=== PATIENT | female | born 1960 | race Caucasian/White ===

== ENCOUNTER → 2018-04-21 | Outpatient (CLI) | payer MEDICARE ==
[2018-04-21 15:56] LABS: ABG BASE EXCESS 0.3 MMOL/L (-2.5-2.5); ABG OXYGEN SATURATION 95 % (94-100); ABG PCO2 41 MMHG (35-45); ABG PO2 62 MMHG (79-93)
[2018-04-21 15:57] LABS: ALLENS TEST YES-POS; INSPIRED O2 ROOM AIR; VENTILATOR NO
== END ==
LOC: LAB 15:06
PROVIDERS: ATTEND Nurse Practitioner Family
DX: J44.9 Chronic obstructive pulmonary disease, unspecified (principal); J30.2 Other seasonal allergic rhinitis; G47.30 Sleep apnea, unspecified; R06.02 Shortness of breath; Z72.0 Tobacco use
CPT/HCPCS: 82805

== ENCOUNTER → 2018-04-30 | Outpatient (CLI) | payer MEDICARE ==
--- NOTE | 2018-04-30 19:47 | Diagnostic Imaging Report ---
INDICATION: Pain and lump in the right axilla. COMPARISON: No prior mammograms are available for comparison. TECHNIQUE: 2D and 3D bilateral diagnostic mammography was performed with computer-aided detection (CAD) system. FINDINGS: Scattered fibroglandular densities are identified bilaterally. A BB marker was placed at the area of palpable abnormality in the right axilla. No underlying abnormality is seen. Right breast is unremarkable without evidence of mass or suspicious calcifications. Slightly lobulated density is identified in the upper-outer left breast, approximately 7-8 cm from the nipple. There are some adjacent benign calcifications. No other suspicious abnormality is seen. IMPRESSION: 1. No suspicious abnormality in the right breast or right axilla is seen. There is a slightly lobulated density in the upper-outer left breast at mid depth. Sonographic interrogation of the right axilla at the area of pain as well as in the upper-outer left breast is recommended and will be performed today. ACR BI-RADS Category 0: Incomplete. (Needs additional imaging evaluation). Result letter will be mailed to the patient. Note: At least 10% of breast cancer is not imaged by mammography. Dictated by: Dictated on workstation # [id number]
--- NOTE | 2018-04-30 20:07 | Diagnostic Imaging Report ---
INDICATION: Palpable lump in the right axilla. There is also a density noted in the left breast. Study is performed for further evaluation. Correlation is made with diagnostic mammogram earlier same date. Right breast: Sonographic interrogation of the area of palpable abnormality in the right axilla was performed. There are 2 tiny hypoechoic nodules just below the skin surface in the right axilla, each measuring approximately 4-5 mm in size. These most likely represent tiny sebaceous cysts. No other abnormality in the right axilla is seen. Left breast: Sonographic interrogation of the upper outer left breast was performed. There is a slightly lobulated hypoechoic mass at the 2 o'clock location approximately 4 cm from the nipple. This measures approximately 1.4 x 0.7 x 0.8 cm. This does correlate in size and location to the mammographic density. No internal vascularity is present. This may represent a cluster of complex cysts. However, there is questionable posterior acoustic shadowing present. No other abnormalities are seen. IMPRESSION: 1. Tiny probable sebaceous cyst at the areas of palpable abnormality in the right axilla. No suspicious abnormality in the right axilla is seen. 2. Lobulated hypoechoic nodule 2 o'clock location of the left breast 4 cm from the nipple. While this has fairly benign features this does demonstrate some questionable posterior acoustic shadowing. Tissue sampling would be recommended. This would be amenable to ultrasound-guided core biopsy. ACR BI-RADS Category 4: Suspicious abnormality. Dictated by: Dictated on workstation # [id number]
== END ==
LOC: RAD 13:46
PROVIDERS: ATTEND Registered Nurse
DX: N63.21 Unspecified lump in the left breast, upper outer quadrant (principal); R22.31 Localized swelling, mass and lump, right upper limb
CPT/HCPCS: 76642; 77066

== ENCOUNTER → 2018-05-07 | Outpatient (CLI) | payer MEDICARE ==
[~2018-05-07] VITALS: Ht 162.6 cm; Wt 89.8 kg
[~2018-05-07] MED LIST: LIDOCAINE 1% INJ 20 ML 20 ML VIAL INJ ONE
--- NOTE | 2018-05-07 13:51 | Diagnostic Imaging Report ---
INDICATION: Status post left breast ultrasound-guided biopsy. 2-D, CC and ML views of the left breast were obtained post biopsy. FINDINGS: Marker clip is identified in the upper outer left breast at the region of previously noted lobulated mass. IMPRESSION: Marker clip appears to be in a satisfactory location, status post ultrasound-guided biopsy. Dictated by: Dictated on workstation # [id number]
--- NOTE | 2018-05-07 19:34 | Diagnostic Imaging Report ---
INDICATION: Left breast mass. Patient presents for ultrasound-guided biopsy. The patient was brought to the procedure room, placed on the table in the supine position. Ultrasound imaging of the left breast was performed to evaluate appropriate entry site. Skin of the left breast was prepped and draped in usual sterile fashion. Small amount of 1% lidocaine was utilized for local anesthesia. A total of 3 passes were made with 14-gauge Achieve needle into the lobulated hypoechoic mass at the 2 o'clock location of the left breast, 4 cm from the nipple. Core biopsies were obtained. Marker clip was then deployed. Hemostasis was obtained using manual compression. Patient tolerated the procedure well and was sent for post procedure mammogram in satisfactory condition. IMPRESSION: Successful ultrasound-guided core biopsy of the lobulated hypoechoic mass at the 2 o'clock location of the left breast, 4 cm from the nipple. Pathology results are currently pending. Dictated by: Dictated on workstation # [id number]
== END ==
LOC: RAD 08:59
PROVIDERS: ATTEND Registered Nurse
DX: D24.2 Benign neoplasm of left breast (principal); N60.32 Fibrosclerosis of left breast
CPT/HCPCS: 19083; 88305

== ENCOUNTER 2018-05-19 19:48 | Outpatient (CLI) | payer MEDICARE | END 2018-05-20 06:45 | disposition home or self-care (01) | LOC: SLEEP 19:48 | PROVIDERS: ATTEND Nurse Practitioner Family | DX: G47.36 Sleep related hypoventilation in conditions classified elsewhere (principal); R06.83 Snoring; J44.9 Chronic obstructive pulmonary disease, unspecified; J30.2 Other seasonal allergic rhinitis; R06.02 Shortness of breath; Z72.0 Tobacco use | CPT/HCPCS: 95810 ==

== ENCOUNTER → 2018-05-20 | Outpatient (CLI) | payer MEDICARE ==
[~2018-05-20] MED LIST changes: +IOHEXOL 350 MG/ML 100 ML (OMNIPAQUE 350) VIAL IV ONE; -LIDOCAINE 1% INJ 20 ML 20 ML VIAL INJ ONE; +NS 100 ML (IVPB) BAG IV ONE; +RECEIVED CONTRAST 20 ML VIAL IV SCH
[2018-05-20 07:43] LABS: BUN/CREATININE RATIO 10; CREATININE SERUM 0.68 MG/DL (0.60-1.30); GFR ESTIMATED > 60
--- NOTE | 2018-05-20 12:10 | Diagnostic Imaging Report ---
PROCEDURE: CT chest with contrast only. TECHNIQUE: Multiple contiguous axial images were obtained through the chest after administration of intravenous contrast. INDICATION: COPD, sleep apnea, shortness of breath, and tobacco use. COMPARISON: None. FINDINGS: Partially visualized thyroid gland does appear to be mildly enlarged with small areas of nodularity in left lobe greater than right lobe. A few small scattered bilateral axillary lymph nodes. A few mildly prominent but nonpathologic enlarged mediastinal and hilar lymph nodes are present. Periazygal lymph node calcification. The heart size is unremarkable. Thoracic aorta normal in contour. 4-5 mm predominantly solid nodule in the anterolateral aspect of right middle lobe (image 30 series 2) just below the fissure plane is present. No significant pleural effusion. Questionable 7 mm low-density nodule in the anterolateral aspect of right lobe of the liver. The visualized osseous structures demonstrate no acute findings. IMPRESSION: 1. Negative for acute abnormality of the chest. 2. Very small right middle lobe nodule favors likely benign process (Fleischner guidelines in a low-risk patient suggest follow-up CT in 12 months; in a high-risk patient, initial follow-up CT at 6-12 months). 3. Mildly enlarged thyroid gland with a few small nodules. Correlation with short-term follow-up thyroid ultrasound imaging recommended. 4. Very small lesion in the right lobe of the liver cannot be characterized on this study. This could be reflective of a benign process such as a small cyst or cavernous hemangioma. Other lesions are not excluded. Dictated by: Dictated on workstation # [id number]
== END ==
LOC: RAD 07:07
PROVIDERS: ATTEND Nurse Practitioner Family
DX: J44.9 Chronic obstructive pulmonary disease, unspecified (principal); E04.2 Nontoxic multinodular goiter; K76.9 Liver disease, unspecified; J30.2 Other seasonal allergic rhinitis; G47.30 Sleep apnea, unspecified; Z72.0 Tobacco use
CPT/HCPCS: 36415; 36600; 71260; 82565; 84520

== ENCOUNTER → 2018-11-27 | Outpatient (CLI) | payer MEDICARE ==
--- NOTE | 2018-11-27 19:29 | Diagnostic Imaging Report ---
INDICATION: Followup left breast nodule. Patient has had prior left breast biopsy demonstrating a fibroadenoma. Patient also reports nurse practitioner describing the right breast as "lumpy". Patient denies having a palpable abnormality in the right breast. COMPARISON: Correlation is made with prior mammogram from 04/30/2018. TECHNIQUE: Bilateral 2-D and 3-D diagnostic mammography was performed. The current study was also evaluated with a Computer Aided Detection (CAD) system. 3-D tomosynthesis was also performed and reviewed. FINDINGS: Scattered fibroglandular densities are identified bilaterally. Biopsy changes in the upper-outer left breast are noted. There is a marker clip in place. There are benign calcifications present. No new mass or malignant-appearing microcalcifications are seen. Axillae are unremarkable. IMPRESSION: No mammographic features suspicious for malignancy are identified. ACR BI-RADS Category 2: Benign findings. Result letter will be mailed to the patient. Note: At least 10% of breast cancer is not imaged by mammography. Dictated by: Dictated on workstation # [id number]
== END ==
LOC: RAD 12:05
PROVIDERS: ATTEND Registered Nurse
DX: N64.52 Nipple discharge (principal); N63.0 Unspecified lump in unspecified breast; Z87.898 Personal history of other specified conditions
CPT/HCPCS: 77066

== ENCOUNTER 2018-12-17 15:20 | Outpatient (CLI) | payer MEDICARE ==
[~2018-12-17] VITALS: Ht 162.5 cm; Wt 90.9 kg
[2018-12-18] MEDS ORDERED: RT-ALBUINH INH (09:44)
[2018-12-18] MEDS ORDERED: METH500T7 PO (09:44)
[2018-12-18] MEDS ORDERED: GBPN600T PO (09:44)
[2018-12-18] MEDS ORDERED: CITA20TA9 PO (09:44)
[2018-12-18] MEDS ORDERED: ZOLP5TAB PO (09:44)
[2018-12-18] MEDS ORDERED: MELO7.5T46 PO (09:44)
[2018-12-18] MEDS ORDERED: TRAZ-222 PO (09:44)
== END 2018-12-17 16:01 | disposition home or self-care (01) ==
LOC: PREOP 15:20
PROVIDERS: ATTEND Surgery
DX: Z01.818 Encounter for other preprocedural examination (principal)

== ENCOUNTER 2018-12-22 09:54 | Day surgery (SDC) | payer MEDICARE ==
[~2018-12-22] VITALS: Ht 162.6 cm; Wt 90.9 kg
[~2018-12-22 09:54] MED LIST changes: +CITA20TA9 PO; +GBPN600T PO; -IOHEXOL 350 MG/ML 100 ML (OMNIPAQUE 350) VIAL IV ONE; +MELO7.5T46 PO; +METH500T7 PO; -NS 100 ML (IVPB) BAG IV ONE; -RECEIVED CONTRAST 20 ML VIAL IV SCH; +RT-ALBUINH INH; +TRAZ-222 PO; +ZOLP5TAB PO
[2018-12-22] MEDS ORDERED: LACTATED RINGERS 1,000 ML IV ONE (10:06)
[2018-12-22] MEDS ORDERED: LACTATED RINGERS 1,000 ML IV STA (10:15)
[2018-12-22 10:35] VITALS: BP 132/90
--- NOTE | 2018-12-22 10:56 | Progress Note-Pre Operative ---
Pre-Operative Progress Note H&P Reviewed The H&P was reviewed, patient examined and no changes noted. Time Seen by Provider: 10:54 Date H&P Reviewed: Dec 22, 2018 Time H&P Reviewed: 10:53 Pre-Operative Diagnosis: screening colon FREYA DIAS DO Dec 22, 2018 10:56
[2018-12-22] MEDS ORDERED: MIDAZOLAM 2 MG/2 ML (VERSED) VIAL ONE (11:15)
[2018-12-22] MEDS ORDERED: PROPOFOL INJECTION 50 ML IV ONE (11:15)
[2018-12-22 11:45] VITALS: BP 97/54
--- NOTE | 2018-12-22 11:49 | Progress Note-Post Operative ---
Post-Operative Progess Note Surgeon (s)/Dehydrogenation Supervisor (s) Surgeon FREYA DIAS DO Dehydrogenation Supervisor: none Pre-Operative Diagnosis screening colon Post-Operative Diagnosis colon polyps internal hemorrhoids poor prep Procedure & Operative Findings Date of Procedure 12/22/18 Procedure Performed/Findings colon with snare Anesthesia Type IV sedation by CHILDCARE AIDE Estimated Blood Loss Estimated blood loss (mL): scant Specimens/Packing Specimens Removed ascending colon polyp cecal polyp FREYA DIAS DO Dec 22, 2018 11:49
[2018-12-22 11:50] VITALS: BP 106/61
--- NOTE | 2018-12-22 11:51 | Endoscopy Discharge Instruct ---
Endo Procedure/Findings Findings 1.: Polyp 2.: Internal Hemorrhoids Discharge Instructions - Activity: You might feel a little sleepy until tomorrow. This is due to the medicine you received to relax you. Until tomorrow, you should: NOT drive a car, operate machinery or power tools. NOT drink any alcoholic beverages. NOT make any important decisions or sign importortant papers. Do not return to work until tomorrow, unless otherwise instructed. Resume previous activities tomorrow. Diet: Start by taking liquids. If you tolerate liquids, advance to solid food. make an appointment for one week 1.: Colonoscopy in 1 year Notify Physician - If you experience excessive bleeding, unusual abdominal pain, fever, or chest pain, contact your doctor immediately. FREYA DIAS DO Dec 22, 2018 11:51
[2018-12-22 11:55] VITALS: BP 126/69
[2018-12-22 12:25] VITALS: BP 136/83
[2018-12-22 12:40] VITALS: BP 136/83
--- NOTE | 2018-12-22 12:54 | Anesthesia-General Post-Op ---
MAC Patient Condition Mental Status/LOC: Same as Preop Cardiovascular: Satisfactory Nausea/Vomiting: Absent Respiratory: Satisfactory Pain: Controlled Complications: Absent Post Op Complications Complications None Follow Up Care/Instructions Patient Instructions None needed. Anesthesiology Discharge Order Discharge Order Patient is doing well, no complaints, stable vital signs, no apparent adverse anesthesia problems. No complications reported per nursing. TYE HAMMOND CRNA Dec 22, 2018 12:54
--- NOTE | 2018-12-23 23:51 | OPERATIVE REPORT ---
DATE OF SERVICE: 12/22/2018 PREOPERATIVE DIAGNOSIS: Screening colonoscopy. POSTOPERATIVE DIAGNOSES: 1. Colon polyps. 2. Internal hemorrhoids. 3. Poor prep. PROCEDURE: Colonoscopy with snare polypectomy. SURGEON: Homar Caldwell DO. SLAT BASKET MAKER MACHINE: None. ANESTHESIA: IV sedation by PHYSICAL INTEGRATION PRACTITIONER. SPECIMEN: One polyp from the ascending colon and portion of cecal polyp. BLOOD LOSS: Scant. FLUIDS: Per anesthesia. POSTOPERATIVE CONDITION: Stable. INDICATION FOR PROCEDURE: The patient needed a screening colonoscopy. FINDINGS: The patient had a polyp in the ascending colon and one in the cecum. They were very flat, looked like sessile polyps. PROCEDURE NOTE: After informed consent was obtained, the patient was brought to the endoscopy suite and placed on the bed in the left lateral decubitus position. She was administered IV sedation by the PHYSICAL INTEGRATION PRACTITIONER who then monitored her vitals the entire time, heart rate, blood pressure and pulse ox and the scope was inserted, pushed all the way to [address] in, noted a very flat polyp in the ascending colon, took a picture of this and then did a snare polypectomy, able to remove the entire thing, suction this up and then continued on to the cecum, took a picture of appendiceal orifice, noted the ileocecal valve and then in the cecum, saw a very large flat sessile polyp, took a picture of this and then did a snare polypectomy, able to get maybe a quarter of the polyp, could not get the rest, it was too flat, wanted to get a piece for pathology. Then slowly withdrew the scope insufflating to look circumferentially at the acosta looking the cecum, up the ascending colon to the hepatic flexure, then down the transverse colon, the splenic flexure, into the descending colon down in the sigmoid and finally into the rectum, retroflexed in the rectal vault, saw some minimal internal hemorrhoids, took a picture of this. Also on the right side of the colon, there was a lot of retained fecal material so unable to clear the colon because it was not completely clean, picture of this was taken. Removed the scope. The patient tolerated the procedure, recovered in endoscopy suite. Job ID: [id number] DocumentID: [id number] Dictated Date: 12/23/2018 17:09:22 Still Photographer Date: 12/23/2018 23:50:13 Dictated By: HOMAR CALDWELL DO
== END 2018-12-22 12:40 | disposition home or self-care (01) ==
LOC: ENDO 09:54
PROVIDERS: ATTEND Surgery
DX: Z12.11 Encounter for screening for malignant neoplasm of colon (principal); D12.2 Benign neoplasm of ascending colon; D12.0 Benign neoplasm of cecum; K64.8 Other hemorrhoids; K21.9 Gastro-esophageal reflux disease without esophagitis; J44.9 Chronic obstructive pulmonary disease, unspecified; F17.210 Nicotine dependence, cigarettes, uncomplicated; Z99.89 Dependence on other enabling machines and devices; Z79.899 Other long term (current) drug therapy; Z82.49 Family history of ischemic heart disease and other diseases of the circulatory system; Z83.3 Family history of diabetes mellitus
CPT/HCPCS: 88305

== ENCOUNTER → 2019-01-14 | Outpatient (CLI) | payer MEDICARE ==
[~2019-01-14] VITALS: Ht 162 cm; Wt 93.0 kg
[2019-01-14 13:45] VITALS: BP 110/62
[2019-01-14 14:29] LABS: BASOPHILS % (AUTO) 0 % (0-10); EOSINOPHILS # (AUTO) 0.4 10^3/uL (0.0-0.3); EOSINOPHILS % (AUTO) 4 % (0-10); HEMATOCRIT 46 % (35-52); LYMPHOCYTES % (AUTO) 26 % (12-44); MEAN CORPUSCULAR HEMOGLOBIN 31 PG (25-34); MEAN CORPUSCULAR HGB CONC 33 G/DL (32-36); MEAN CORPUSCULAR VOLUME 94 FL (80-99); MEAN PLATELET VOLUME 10.5 FL (7.4-10.4); MONOCYTES # (AUTO) 0.7 X 10^3 (0.0-1.0); MONOCYTES % (AUTO) 6 % (0-12); NEUTROPHILS # (AUTO) 7.4 X 10^3 (1.8-7.8); NEUTROPHILS % (AUTO) 64 % (42-75); PLATELET COUNT 309 10^3/uL (130-400); RED CELL DISTRIBUTION WIDTH 13.5 % (10.0-14.5); WHITE BLOOD COUNT 11.5 10^3/uL (4.3-11.0)
== END ==
LOC: PREOP 13:15
PROVIDERS: ATTEND Surgery
DX: Z01.818 Encounter for other preprocedural examination (principal); B96.81 Helicobacter pylori [H. pylori] as the cause of diseases classified elsewhere; D12.6 Benign neoplasm of colon, unspecified
CPT/HCPCS: 36415; 85025; 86850; 86900; 86901; 87081

== ENCOUNTER 2019-01-21 08:40 | Inpatient (IN) | payer MEDICARE ==
--- NOTE | 2019-01-14 15:37 | NUR ---
PATIENT'S MED LIST WAS PUT IN BY PREOP NURSE. I CALLED ISABEL IN [place] TO VERIFY FILL DATES AND DOSAGES. I UPDATED THE ROBAXIN IT WAS PRESCRIBED. [facility] FILLED: 12-25-18 AMBIEN 5MG HS 12-25-18 GABAPENTIN 600MG TID 12-16-18 MOBIC 7.5MG DAILY 12-16-18 ROBAXIN 500MG BID 12-16-18 CELEXA 20MG DAILY ALSO REPORTED IS A VENTOLIN INHALER. ISABEL STATES SHE HAS NOT PICKED UP INHALERS DUE TO NOT HAVE INSURANCE. I LEFT IT ON THE MED REC SHE MAY HAVE RECEIVED SAMPLES.
[2019-01-21] VITALS (12 sets, daily range): BP systolic 99–180; BP diastolic 64–102
[~2019-01-21] VITALS: Ht 163 cm; Wt 90.0 kg
--- NOTE | 2019-01-21 08:44 | Progress Note-Pre Operative ---
Pre-Operative Progress Note H&P Reviewed The H&P was reviewed, patient examined and no changes noted. Time Seen by Provider: 08:42 Date H&P Reviewed: Jan 21, 2019 Time H&P Reviewed: 08:43 Pre-Operative Diagnosis: Large Tubovillous Adenoma of Cecum, Gastritis FREYA DIAS DO Jan 21, 2019 08:44 POS
[2019-01-21] MEDS ORDERED: ceFAZolin 2 GM IV Premixed 50 ML IV ONE (08:45)
[2019-01-21] MEDS ORDERED: BUP/EPI 0.5% 1:200,000 (SENSORCAINE) 30 ML VIAL ONE (08:47)
[2019-01-21] MEDS: LACTATED RINGERS 1,000 ML IV PRN ×2 (09:03→10:46)
[2019-01-21] MEDS ORDERED: GLYCOPYRROLATE 0.2 MG/ML (ROBINUL) 2 ML VIAL ONE (09:21)
[2019-01-21] MEDS ORDERED: SUCCINYLCHOLINE INJ 100 MG/5 ML SYR ONE (09:21)
[2019-01-21] MEDS ORDERED: ONDANSETRON 4 MG/2 ML (SDV) Z0FRAN ONE (09:21)
[2019-01-21] MEDS ORDERED: LIDOCAINE PF 2% 5 ML (XYLOCAINE) VIAL ONE (09:21)
[2019-01-21] MEDS ORDERED: NEOSTIGMINE 3 MG/3 ML VIAL ONE (09:21)
[2019-01-21] MEDS ORDERED: ROCURONIUM 10 MG/ML 5 ML SYRINGE IV ONE (09:21)
[2019-01-21] MEDS ORDERED: SEVOFLURANE (ULTANE) 15 ML INHAL SOLN ONE ×2 (09:21→11:34)
[2019-01-21] MEDS ORDERED: fentaNYL INJECTION 100 MCG/2 ML AMP ONE (09:21)
[2019-01-21] MEDS ORDERED: DEXAMETHASONE 10 MG/ML (DECADRON) 1 ML VIAL ONE (09:21)
[2019-01-21] MEDS ORDERED: MIDAZOLAM 2 MG/2 ML (VERSED) VIAL ONE (09:21)
[2019-01-21] MEDS ORDERED: proPOfol 200 MG/20 ML (DIPRIVAN) VIAL IV ONE (09:21)
[2019-01-21] MEDS ORDERED: BUPIVACAINE 0.5% 30 ML (SENSORCAINE) VIAL ONE (09:22)
[2019-01-21] MEDS ORDERED: VENL75CA93 PO (09:39)
[2019-01-21] MEDS ORDERED: HYDROmorphone 2 MG/ML VIAL (DILAUDID) ONE (10:17)
--- NOTE | 2019-01-21 10:53 | Progress Note-Post Operative ---
Post-Operative Progess Note Surgeon (s)/Sas Programmer (s) Surgeon FREYA DIAS DO Sas Programmer: [place] Pre-Operative Diagnosis Large Tubovillous Adenoma of Cecum, Gastritis Post-Operative Diagnosis Gastritis, Hiatal hernia Large Tubovillous adenoma of cecum Procedure & Operative Findings Date of Procedure 01/21/19 Procedure Performed/Findings EGD with bx Lap Hand asst right colon resection Anesthesia Type GET Estimated Blood Loss Estimated blood loss (mL): minimal Specimens/Packing Specimens Removed antral bx Body of stomach bx GE jxn bx Right colon with portion of TI and FREYA Ba DO Jan 21, 2019 10:53 POS
[2019-01-21] MEDS ORDERED: ONDANSETRON 4 MG/2 ML (SDV) Z0FRAN IVP PRN (11:15)
[2019-01-21] MEDS ORDERED: HYDROmorphone 2 MG/ML VIAL (DILAUDID) IV ONE (11:15)
--- NOTE | 2019-01-21 12:30 | NUR ---
SURINDERATIF Oumou admitted to room 422-1, with an admitting diagnosis of colon resection, on 01/21/19 from surgery via bed, accompanied by staff and family present in room .ATIF CADENA introduced to surroundings, call light, bed controls, phone, TV, temperature control, lights, meal times, smoking policy, visitor policy, side rail policy, bathrooms and showers. Patient Rights given to patient in the handbook. ATIF CADENA verbalizes understanding that [facility] is not responsible for the loss or damage to any personal effects or valuables that are kept in the patients posession during their hospitalization. The following Patient Care Plans and discharge were discussed with the patient and family . ATIF CADENA verbalizes understanding of Interdisciplinary Patient Education. Patient and family were informed about the Rapid Response Team and its purpose.
[2019-01-21] MEDS: ACETAMINOPHEN 500 MG TAB (TYLENOL) PO SCH ×2 (14:16→18:42)
[2019-01-21] MEDS: metroNIDAZOLE 500MG/100ML IVPB 100 ML IV SCH ×2 (14:16→18:43)
[2019-01-21] MEDS: KETOROLAC 30 MG/ML VIAL IVP SCH ×4 (14:16→23:21)
--- NOTE | 2019-01-21 14:58 | OPERATIVE REPORT ---
DATE OF SERVICE: PREOPERATIVE DIAGNOSES: 1. Gastritis, history of Helicobacter pylori. 2. Large tubulovillous adenoma of the cecum. POSTOPERATIVE DIAGNOSES: 1. Gastritis, history of Helicobacter pylori. 2. Large tubulovillous adenoma of the cecum, pending pathology. PROCEDURES: 1. EGD with biopsy. 2. Laparoscopic hand-assisted right colon resection. SURGEON: Freya Caldwell DO. SHIPPING AND RECEIVING SPECIALIST: Austin Rosenthal DO. ANESTHESIA: General endotracheal tube. SPECIMEN: Biopsy from the antrum, biopsy from the body of stomach, biopsy of the GE junction and then a second specimen was a right colon with portion of terminal ileum and appendix. BLOOD LOSS: Minimal. FLUIDS: Per anesthesia. POSTOPERATIVE CONDITION: Stable. INDICATION FOR PROCEDURE: The patient is a 59-year-old female, who had a recent colonoscopy, which showed a large polyp, unable to remove it with a colonoscopy, needed a colon resection. She also has history of H. pylori and has been having some gastritis and needed EGD. FINDINGS: The patient had some inflammation in the stomach. Biopsies done and then she had a right colon resection performed, opened the specimen on the back table found a large polyp that we had seen during colonoscopy. PROCEDURE NOTE: After informed consent was obtained, the patient was brought to the operating room, placed on the table in supine position. She was intubated and then started with the EGD, placed the scope down the mouth through the esophagus into the stomach. In the stomach, looked like there is some gastritis, maybe even a little bit of bleeding. Took picture and then pushed to the duodenum. Duodenum looked fine. Pulled back and did a biopsy of the antrum. Retroflexed the scope. She may have had a small hiatal hernia, did a biopsy of body of stomach and then pulled the scope up into the GE junction, did a biopsy GE junction. Suctioned all the air out of the stomach and then pulled the scope up the esophagus and out of the mouth and then patient was sterilely prepped and draped in normal fashion. I started with a colon resection. Small midline incision was made from just above the umbilicus to just below with #15 blade, carried down through the skin into subcutaneous tissue after first infiltrating the skin with local and then carried down through the subcutaneous tissue with blunt dissection with Bovie electrocautery down to fascia. Fascia incised with Bovie electrocautery, then bluntly entered the abdomen, swept a finger around then opened in a superior and inferior direction with a hand in protecting the bowel placed a wound protector and then placed a Gelport, created pneumoperitoneum and then placed 2 more ports with local lidocaine, 15 blade for stab incision and then VersaStep system, all done under direct vision, one above the Gelport and one below, could visualize the cecum started coming across the pericolic gutter with the LigaSure, clamping, coagulating and transecting in this fashion, freeing this up, so that we could rotate the colon to the middle coming up all the way across to the hepatic flexure and then up some adhesions of the liver and gallbladder. This was carefully taken down with the LigaSure. Once we had everything freed up with the LigaSure, then elected to deliver this through the abdominal wall, went through the mesentery with Bovie electrocautery and then placed a CORAZON-75 clamped and fired, thereby transecting and went up on the colon about a little more than care home up of the right colon got under the mesentery with the Bovie electrocautery and blunt dissection and then placed another CORAZON-75 on clamped and fired, thereby transecting and then took this portion of terminal ileum, appendix and colon took this off the LigaSure, clamping, coagulating and transecting coming through the mesentery and then attached the antimesenteric border of the small intestine through the tinea of the colon made holes with a Bovie electrocautery, placed a CORAZON on either side, clamped and fired through the crotch stitch of 3-0 Vicryl and then closed this enterocolotomy with a TA-60. Closed nicely. There was no bleeding dropped this back into the abdomen and then closed the midline incision, took the wound protector out and closed the midline incision with #1 double stranded PDS suture running from superior portion to inferior portion tying to itself. Created pneumoperitoneum again to look midline incision looked great. No other obvious pathology, no bleeding and at this time, then removed the 2 more 5 mm ports, first irrigated all incisions with normal saline and closed the 5 mm ports with a single interrupted 4-0 undyed Monocryl subcuticular stitch, closed with a midline incision with nafisa. Area was cleaned and dried. Dermabond used and the 5 mm and then an island dressing placed in the midline incision. The patient tolerated the procedure. Sponge, instrument and needle count correct at the end of the case. Dr. Rosenthal assisted in this case helping to make incisions, close incisions, identify anatomy and hold anatomy out of the way. Job ID: [id number] DocumentID: [id number] Dictated Date: 01/21/2019 10:50:26 E Commerce Project Manager Date: 01/21/2019 14:56:35 Dictated By: FREYA CALDWELL DO
[2019-01-21] MEDS: ceFAZolin 2 GM IV Premixed 50 ML IV SCH ×2 (16:02→23:22)
[2019-01-21] MEDS ORDERED: HYDROcodone/APAP 5 MG/325 MG (LORTAB) TAB ONE (22:19)
[2019-01-22] VITALS: BP 109/63
[2019-01-22] MEDS: ACETAMINOPHEN 500 MG TAB (TYLENOL) PO SCH ×4 (03:00→18:17)
[2019-01-22 04:00] VITALS: BP 105/63
[2019-01-22] MEDS: KETOROLAC 30 MG/ML VIAL IVP SCH ×4 (05:10→23:00)
--- NOTE | 2019-01-22 06:55 | Anesthesia-General Post-Op ---
General Patient Condition Mental Status/LOC: Same as Preop Cardiovascular: Satisfactory Nausea/Vomiting: Absent Respiratory: Satisfactory Pain: Controlled Complications: Absent Post Op Complications Complications None Follow Up Care/Instructions Patient Instructions None needed. Anesthesia/Patient Condition Patient Condition Patient is doing well, no complaints, stable vital signs, no apparent adverse anesthesia problems. No complications reported per nursing. LYNDON HAIRSTON CRNA Jan 22, 2019 06:55 POS
--- NOTE | 2019-01-22 07:34 | Progress Note - Surgery ---
CAIN COLEMAN MED STUDENT 01/22/19 0734: Subjective Date Seen by a Provider: Jan 22, 2019 Time Seen by a Provider: 07:10 Subjective/Events-last exam Ms. Oreilly complains of blood in her stool that she describes as bright red, as well as several pains in her abdomen. She has had several bowel movements since her surgery, and reports that they have all been bloody. She complains of an 8/10 pain in her RLQ and hypogastric area near her iqbal button that she describes as an 8/10 sharp cramping. This pain began yesterday evening, is exacerbated by coughing, palpation, and exertion, and has been improved by pain medication and ice packs. The pain does not radiate. She also complains of pain in her lower hypogastric area she describes as 4/10 pressure, and like she feels like she has to urinate frequently. She has RUQ pain that she has had before, which she describes as a 6/10 sharp, burning pain, for which she had an EGD yesterday. Review of Systems General: No Chills; Fatigue (weakness) HEENT: Sinus Congestion, Post Nasal Drip, Sore Throat (usually has moisture with cannula, reports no moisture in cannula last night dried her out) Pulmonary: No Dyspnea; Cough Cardiovascular: Edema; No: Chest Pain, Palpitations, Lt Headedness Gastrointestinal: Abdominal Pain, Hematochezia; No: Nausea Genitourinary: No Dysuria; Frequency; No Hematuria Neurological: Weakness, Numbness (neuropathy) Objective Exam Vital Signs Date Time Temp Pulse Resp B/P (MAP) Pulse Ox O2 Delivery O2 Flow Rate FiO2 01/22/19 04:00 36.5 72 20 105/63 (77) 94 Nasal Cannula 2.00 01/22/19 00:00 36.9 71 18 109/63 (78) 94 Nasal Cannula 2.00 01/21/19 19:57 36.7 80 20 105/64 (78) 95 Nasal Cannula 2.00 01/21/19 16:17 Nasal Cannula 2.00 01/21/19 16:00 36.9 81 16 99/64 (76) 95 Nasal Cannula 3.00 01/21/19 14:58 36.5 82 18 110/71 (84) 95 Nasal Cannula 3.00 01/21/19 12:30 Nasal Cannula 3 01/21/19 12:20 36.4 16 115/72 (86) 94 Nasal Cannula 3 01/21/19 12:20 Nasal Cannula 01/21/19 12:10 16 116/74 (88) 95 Nasal Cannula 3 01/21/19 12:10 OxyMask 3 01/21/19 12:00 16 120/70 (87) 95 OxyMask 3 01/21/19 11:55 OxyMask 3 01/21/19 11:51 16 144/71 (95) 99 OxyMask 5 01/21/19 11:40 16 167/102 (123) 99 OxyMask 10 01/21/19 11:40 10 01/21/19 11:30 16 180/88 (118) 100 OxyMask 10 01/21/19 11:25 OxyMask 10 01/21/19 11:20 16 163/85 (111) 99 OxyMask 10 01/21/19 11:13 OxyMask 10 01/21/19 11:13 36.6 16 167/85 (112) 98 OxyMask 10 01/21/19 08:40 36.1 88 16 113/76 95 Room Air I & O 01/22/19 07:00 Intake Total 2970 ml Output Total 3075 ml Balance -105 ml Capillary Refill : General Appearance: Anxious, Mild Distress, Obese Respiratory: No Normal Breath Sounds (intermitten low pitch vibrating sound on upper posts, perhaps due to congestion); No Accessory Muscle Use, No Respiratory Distress Cardiovascular: Regular Rate, Rhythm, No Murmur, Normal Peripheral Pulses Peripheral Pulses: 2+ Dorsalis Pedis (R), 2+ Left Dors-Pedis (L), 2+ Radial Pul ses (R), 2+ Radial Pulses (L) Gastrointestinal: normal bowel sounds, soft, tenderness Extremity: Normal Capillary Refill, Non Tender, No Calf Tenderness, No Pedal Edema Neurologic/Psychiatric: Alert, Oriented x3, Normal Mood/Affect Skin: Normal Color, Warm/Dry Assessment/Plan Assessment/Plan Assessment/Plan Hematochezia Abdominal pain s/p EGD and colon resection Consider endoscopy to locate source of bleeding. Clinical Quality Measures DVT/VTE Risk/Contraindication: RFS Level Per Nursing on Admit: 4+=Very High HOMAR DIAS DO 01/22/19 0839: Subjective Time Seen by a Provider: 08:21 Subjective/Events-last exam Pt seen and examined, states she thinks the blood with BM is slowing down. Assessment/Plan Assessment/Plan Assessment/Plan S/P Lap Right Colon resection Plan continue diet as tolerated, pain control and pt encouraged to ambulate (in halls) and use IS. Pt reassured that a little bit of blood in BM is normal, plus it is lightening up. No need for scope at this time, only if bleeding doesn't stop in a few days. Supervisory-Addendum Brief Verification & Attestation Participated in pt care: history, MDM, physical Personally performed: exam, history, MDM Care discussed with: Medical Student Procedures: n/a Verification and Attestation of Medical Student E/M Service A medical student performed and documented this service in my presence. I reviewed and verified all information documented by the medical student and made modifications to such information, when appropriate. I personally performed the physical exam and medical decision making. Homar Dias, Jan 22, 2019,08:39 CAIN COLEMAN MED STUDENT Jan 22, 2019 07:34 HOMAR MEEHAN DO Jan 22, 2019 08:39 POS
[2019-01-22 08:00] VITALS: BP 117/63
[2019-01-22] MEDS: HYDROcodone/APAP 5 MG/325 MG (LORTAB) TAB PO PRN ×2 (08:43)
[2019-01-22 10:42] LABS: HEMOGLOBIN 11.7 G/DL (11.5-16.0); MEAN PLATELET VOLUME 10.1 FL (7.4-10.4); RED CELL DISTRIBUTION WIDTH 12.8 % (10.0-14.5); WHITE BLOOD COUNT 25.4 10^3/uL (4.3-11.0)
[2019-01-22] MEDS ORDERED: ENOXAPARIN 40 MG/0.4 ML (LOVENOX) SYR SC SCH (11:00)
--- NOTE | 2019-01-22 11:50 | NUR ---
Pharmacy notified of dosing schedule for Toradol, Pharm okayed non scheduled administration.
[2019-01-22 12:00] VITALS: BP 122/84
--- NOTE | 2019-01-22 12:16 | NUR ---
Dr. Caldwell notified of WBC count and pt's uncontrolled pain
[2019-01-22] MEDS: morphine INJ 4 MG/ML 1 ML (VIAL/SYRINGE) IVP PRN ×3 (15:27→21:12)
[2019-01-22 16:05] VITALS: BP 100/56
--- NOTE | 2019-01-22 18:18 | NUR ---
1900 dose of tylenol held because dose would exceed daily allowance.
[2019-01-22 19:17] VITALS: BP 109/57
[2019-01-23 00:05] VITALS: BP 103/65
[2019-01-23] MEDS: morphine INJ 4 MG/ML 1 ML (VIAL/SYRINGE) IVP PRN ×3 (00:30→08:59)
[2019-01-23 04:00] VITALS: BP 101/60
[2019-01-23] MEDS: KETOROLAC 30 MG/ML VIAL IVP SCH (04:11)
--- NOTE | 2019-01-23 07:12 | NUR ---
pt continues to have bloody stools, and pain with BMs, Dr. Caldwell notified, ordered to have H/H done.
[2019-01-23 08:00] VITALS: BP 106/58
--- NOTE | 2019-01-23 08:34 | Progress Note - Surgery ---
CAIN COLEMAN MED STUDENT 01/23/19 0834: Subjective Date Seen by a Provider: Jan 23, 2019 Time Seen by a Provider: 07:45 Subjective/Events-last exam Since she was last seen, Ms. Oreilly reports feeling the same as yesterday. She continues to have the 8/10 sharp pain in her lower abdominal quadrants, pa rticularly her RLQ, that is exacerbated by coughing and movement, as well as the pain in her RUQ and hypogastric area. She reports that she no longer has pain on urination today. Continues to have blood in her stool that she describes as bright red, and has had increased frequency of bowel movements. Review of Systems General: No Chills; Fatigue HEENT: Sinus Congestion, Sore Throat Pulmonary: No Dyspnea; Cough Cardiovascular: No: Chest Pain, Lt Headedness Gastrointestinal: Abdominal Pain, Hematochezia Genitourinary: No Dysuria; Hematuria Neurological: Weakness; No: Numbness (neuropathy) Objective Exam Vital Signs Date Time Temp Pulse Resp B/P (MAP) Pulse Ox O2 Delivery O2 Flow Rate FiO2 01/23/19 04:00 37.4 86 22 101/60 (74) 96 01/23/19 00:05 36.9 85 18 103/65 (78) 94 01/22/19 21:10 Room Air 01/22/19 19:17 36.6 74 18 109/57 (74) 97 01/22/19 16:05 36.4 80 19 100/56 (71) 95 01/22/19 12:00 36.0 98 20 122/84 (97) 93 Nasal Cannula 2.00 01/22/19 09:00 Nasal Cannula 1.00 I & O 01/23/19 07:00 Intake Total 2549 ml Output Total 1400 ml Balance 1149 ml Capillary Refill : General Appearance: Anxious, Moderate Distress, Obese Neck: Non Tender, Supple Respiratory: Normal Breath Sounds, No Accessory Muscle Use, No Respiratory Distress Cardiovascular: Regular Rate, Rhythm, No Murmur, Normal Peripheral Pulses Peripheral Pulses: 2+ Dorsalis Pedis (R), 2+ Left Dors-Pedis (L), 2+ Radial Pulses (R), 2+ Radial Pulses (L) Gastrointestinal: normal bowel sounds, soft, tenderness (RLQ) Extremity: Non Tender, No Calf Tenderness, No Pedal Edema Neurologic/Psychiatric: Alert, Oriented x3, Normal Mood/Affect Skin: Normal Color, Warm/Dry Results Lab Laboratory Tests 01/22/19 10:35: White Blood Count 25.4H, Red Blood Count 3.75L, Hemoglobin 11.7, Hematocrit 35, Mean Corpuscular Volume 92, Mean Corpuscular Hemoglobin 31, Mean Corpuscular Hemoglobin Concent 34, Red Cell Distribution Width 12.8, Platelet Count 259, Mean Platelet Volume 10.1, Creatinine 0.62 Assessment/Plan Assessment/Plan Assessment/Plan S/P lap right colon resection Awaiting H&H, monitoring bleeding. Continue diet as tolerated, manage pain, encourage ambulation in halls. Clinical Quality Measures DVT/VTE Risk/Contraindication: RFS Level Per Nursing on Admit: 4+=Very High HOMAR DIAS DO 01/23/19 1027: Subjective Time Seen by a Provider: 09:58 Subjective/Events-last exam Pt seen and examined, her main complaint is of cramping. States she is still passing blood clots, is ambulating and using IS (but not much). Assessment/Plan Assessment/Plan Assessment/Plan S/P Right colon resection Pt told she must ambulate and use IS, also should be using her inhaler. Will increase diet to soft, D/C all blood thinners (toradol, lovenox), start Dicyclomine for intestinal cramps. Supervisory-Addendum Brief Verification & Attestation Participated in pt care: history, MDM, physical Personally performed: exam, history, MDM Care discussed with: Medical Student Procedures: n/a Verification and Attestation of Medical Student E/M Service A medical student performed and documented this service in my presence. I reviewed and verified all information documented by the medical student and made modifications to such information, when appropriate. I personally performed the physical exam and medical decision making. Homar Dias, Jan 23, 2019,10:27 CAIN COLEMAN MED STUDENT Jan 23, 2019 08:34 HOMAR MEEHAN DO Jan 23, 2019 10:27 POS
[2019-01-23 08:44] LABS: HEMOGLOBIN 9.1 G/DL (11.5-16.0)
--- NOTE | 2019-01-23 09:43 | NUR ---
Dr Caldwell notified of pt's muscle spasms, bloody stool, and uncontrolled pain.
[2019-01-23] MEDS ORDERED: HYDR-3820 PO (10:30)
--- NOTE | 2019-01-23 10:30 | Discharge Inst-Surgical ---
Discharge Inst-Surgical Depart Medication/Instructions New, Converted or Re-Newed RX: RX on Chart Patient Instructions Follow up Appt: Make appointment for 1 week. [phone] Instructions: No lifting greater than 20 pounds. No strenuous activity. May shower in 24 hours, no tub bath or soaking. Use incentive spirometer at home as directed. No Smoking Skin/Wound Care: May remove bandages in am. You need to leave the Dermabond on incision it will fall off on it's own. Symptoms to Report: Appetite Changes, Extremity Discoloration, Numbness/Tingling, Swelling Increased, Bleeding Excessive, Eyesight Changes, Pain Increased, Urine Color Change, Constipation(Persistent), Fever over 101 degree F, Pain/Pressure in chest, Urinating Difficulty, Cough Up/Vomit Blood, Heart Beat Irreg/Pounding, Pain/Pressure in jaw, Cramps in feet or legs, Lightheadedness, Pain/Pressure in shoulder, Diarrhea(Persistent), Memory Changes Suddenly, Questions/Concerns, Weight gain consecutive days, Dizziness/Fainting, Nausea/Vomiting, Shortness of Breath, Weight gain over 2 pounds If questions or concerns contact your physician Or seek help at emergency department. Activity Activity Instructions: Avoid Stress to Incision Driving Instructions: No Driving/Refer to Diet Discharge Diet: No Restrictions Diet After 24 Hours: Clear Liquid if Nauseous If Any Problems/Questions/Issu: Contact Your Physician, Go to Emergency Room Skin/Wound Care Infection Signs and Symptoms: Increased Redness, Foul Odor of Wound, Increased Drainage, Skin Itchy or Has a Rash, Increased Swelling, Temperature Above 101 F Bathing Instructions: Shower Stitches/[place]/Dermabond Dis: Care of FREYA Cain DO Jan 23, 2019 10:30 POS
[2019-01-23] MEDS: DICYCLOMINE 10 MG (BENTYL) CAP PO SCH ×3 (11:41→20:23)
[2019-01-23] MEDS: HYDROcodone/APAP 10 MG/325 MG (LORTAB) TAB PO PRN ×3 (11:42→20:21)
[2019-01-23 12:00] VITALS: BP 109/65
--- NOTE | 2019-01-23 15:05 | NUR ---
Report called to Aminta weber Addendum: 01/23/19 at 1830 by BESSIE PIERRE RN CHARTED ON WRONG PT
[2019-01-23 16:08] VITALS: BP 96/58
[2019-01-23 19:38] VITALS: BP 100/53
[2019-01-24 00:09] VITALS: BP 106/55
[2019-01-24] MEDS: HYDROcodone/APAP 10 MG/325 MG (LORTAB) TAB PO PRN ×6 (01:40→22:30)
[2019-01-24 04:25] VITALS: BP 95/50
[2019-01-24] MEDS: DICYCLOMINE 10 MG (BENTYL) CAP PO SCH ×4 (06:13→19:58)
[2019-01-24 08:00] VITALS: BP 106/61
--- NOTE | 2019-01-24 10:51 | Progress Note - Surgery ---
Subjective Date Seen by a Provider: Jan 24, 2019 Time Seen by a Provider: 10:48 Subjective/Events-last exam Pain doing okay. Using IS some. No flatus or bm. Tolerating diet. Denies n/v fever sweats chills shortness of breath or chest pain. Objective Exam Vital Signs Date Time Temp Pulse Resp B/P (MAP) Pulse Ox O2 Delivery O2 Flow Rate FiO2 01/24/19 09:09 95 Room Air 01/24/19 08:00 36.6 90 16 106/61 (76) 95 Room Air 01/24/19 04:25 37.4 100 18 95/50 (65) 92 Room Air 01/24/19 00:09 36.6 91 18 106/55 (72) 92 Room Air 01/23/19 20:05 Room Air 01/23/19 19:38 36.9 90 18 100/53 (69) 93 Room Air 01/23/19 16:08 36.7 87 20 96/58 (71) 95 Room Air 01/23/19 12:00 37.2 88 18 109/65 (80) 97 Nasal Cannula 2.00 I & O0 01/24/19 07:00 Intake Total 1090 ml Output Total 1375 ml Balance -285 ml Capillary Refill : Less Than 3 Seconds General Appearance: No Apparent Distress, Obese HEENT: PERRL/EOMI Neck: Non Tender, Supple Respiratory: Chest Non Tender, No Accessory Muscle Use, No Respiratory Distress Cardiovascular: Regular Rate, Rhythm, Normal Peripheral Pulses Peripheral Pulses: 2+ Dorsalis Pedis (R), 2+ Left Dors-Pedis (L), 2+ Radial Pulses (R), 2+ Radial Pulses (L) Gastrointestinal: normal bowel sounds, soft, tenderness (minimal incisional c/d/i) Extremity: Non Tender, No Calf Tenderness, No Pedal Edema Neurologic/Psychiatric: Alert, Oriented x3, Normal Mood/Affect Skin: Normal Color, Warm/Dry Lymphatic: No Adenopathy Assessment/Plan Assessment/Plan Assessment/Plan S/P Right colon resection Pt told she must ambulate and use IS, PO pain medications. See how she's doing. repeat labs tomorrow Clinical Quality Measures DVT/VTE Risk/Contraindication: RFS Level Per Nursing on Admit: 4+=Very High REBECCA DAVENPORT DO Jan 24, 2019 10:51 POS
[2019-01-24 12:00] VITALS: BP 104/64
[2019-01-24 16:34] VITALS: BP 100/64
[2019-01-24 19:53] VITALS: BP 100/58
[2019-01-25 00:01] VITALS: BP 104/65
[2019-01-25 04:15] VITALS: BP 106/82
[2019-01-25] MEDS: HYDROcodone/APAP 10 MG/325 MG (LORTAB) TAB PO PRN ×4 (04:48→18:32)
[2019-01-25] MEDS: DICYCLOMINE 10 MG (BENTYL) CAP PO SCH ×4 (04:48→20:47)
[2019-01-25 06:10] LABS: HEMOGLOBIN 8.9 G/DL (11.5-16.0); MEAN PLATELET VOLUME 10.9 FL (7.4-10.4); RED CELL DISTRIBUTION WIDTH 12.6 % (10.0-14.5); WHITE BLOOD COUNT 23.2 10^3/uL (4.3-11.0)
[2019-01-25 06:30] LABS: BUN/CREATININE RATIO 9; CALCIUM 9.3 MG/DL (8.5-10.1); CARBON DIOXIDE 26 MMOL/L (21-32); CHLORIDE 92 MMOL/L (98-107); CREATININE SERUM 0.58 MG/DL (0.60-1.30); GFR ESTIMATED > 60; GLUCOSE 117 MG/DL (70-105); SODIUM 132 MMOL/L (135-145)
[2019-01-25 08:00] VITALS: BP 116/72
--- NOTE | 2019-01-25 09:11 | Progress Note - Surgery ---
MADONNA SUTTON,MED STUDENT 01/25/19 0911: Subjective Date Seen by a Provider: Jan 25, 2019 Time Seen by a Provider: 08:15 Subjective/Events-last exam Patient seen and examined. She is still having lower abdominal pain that she describes as crampy, and it comes and goes. At the worst the pain is an 8/10, but notes the hydrocodone helps some. She is starting to pass gas, but has not had a BM. She denies trouble with urination. She reports she began having a productive cough yesterday, and has been coughing up green mucous. She is afebrile, denies SOB, chest pain, n/v/d, but notes she has felt hot and has been sweating some. States she has been using IS. Objective Exam Vital Signs Date Time Temp Pulse Resp B/P (MAP) Pulse Ox O2 Delivery O2 Flow Rate FiO2 01/25/19 08:00 36.0 88 18 116/72 (87) 97 Nasal Cannula 2.00 01/25/19 04:15 36.4 92 18 106/82 (90) 95 Nasal Cannula 2.00 01/25/19 00:01 36.0 85 18 104/65 (78) 97 Nasal Cannula 2.00 01/24/19 21:00 Room Air 01/24/19 19:53 37.6 97 28 100/58 (72) 97 Nasal Cannula 2.00 01/24/19 16:34 36.0 99 20 100/64 (76) 93 Room Air 01/24/19 12:00 36.5 79 16 104/64 (77) 97 Room Air 01/24/19 09:09 95 Room Air I & O 01/25/19 07:00 Intake Total 1540 ml Output Total 500 ml Balance 1040 ml Capillary Refill : Less Than 3 Seconds General Appearance: No Apparent Distress, Obese HEENT: PERRL/EOMI; No Scleral Icterus (L), No Scleral Icterus (R) Neck: Non Tender, Supple Respiratory: Chest Non Tender, No Accessory Muscle Use, No Respiratory Distress; No Crackles, No Rhonci, No Wheezing Cardiovascular: Regular Rate, Rhythm, Normal Peripheral Pulses Peripheral Pulses: 2+ Dorsalis Pedis (R), 2+ Left Dors-Pedis (L), 2+ Radial Pulses (R), 2+ Radial Pulses (L) Gastrointestinal: normal bowel sounds, soft, tenderness (minimal incisional c/d/i) Extremity: Non Tender, No Calf Tenderness, No Pedal Edema Neurologic/Psychiatric: Alert, Oriented x3, Normal Mood/Affect Skin: Normal Color, Warm/Dry Lymphatic: No Adenopathy Results Lab Laboratory Tests 01/25/19 05:57: White Blood Count 23.2H, Red Blood Count 2.91L, Hemoglobin 8.9L, Hematocrit 27L, Mean Corpuscular Volume 93, Mean Corpuscular Hemoglobin 31, Mean Corpuscular Hemoglobin Concent 33, Red Cell Distribution Width 12.6, Platelet Count 348, Mean Platelet Volume 10.9H, Sodium Level 132L, Potassium Level 4.0, Chloride Lev el 92L, Carbon Dioxide Level 26, Anion Gap 14, Blood Urea Nitrogen 5L, Creatinine 0.58L, Estimat Glomerular Filtration Rate > 60, BUN/Creatinine Ratio 9, Glucose Level 117H, Calcium Level 9.3, Magnesium Level 2.0 Assessment/Plan Assessment/Plan Assessment/Plan S/P Right colon resection Patient states she is using IS as instructed WBC at 23.2 today, down from 25.4 on 01/23 Continue to monitor labs Continue PO pain medication prn Clinical Quality Measures DVT/VTE Risk/Contraindication: RFS Level Per Nursing on Admit: 4+=Very High REBECCA ROSENTHAL DO 01/25/19 1313: Subjective Subjective/Events-last exam productive cough, green color to it. passing flatus, denies bm. Wanting to go home. wbc 23k usin IS some. tolerating diet. denies n/v chills shortness of breath or chest pain. Objective Exam General Appearance: No Apparent Distress HEENT: PERRL/EOMI Neck: Supple Respiratory: Chest Non Tender, No Accessory Muscle Use, No Respiratory Distress Cardiovascular: Regular Rate, Rhythm Gastrointestinal: soft, tenderness (minimal incisional c/d/i) Neurologic/Psychiatric: Alert, Oriented x3 Skin: Normal Color, Warm/Dry Lymphatic: No Adenopathy Assessment/Plan Assessment/Plan Assessment/Plan s/p right colon resection productive cough leukocytosis get chest x ray start on Zosyn repeat labs in am sputum culture encouraged IS Supervisory-Addendum Brief Verification & Attestation Participated in pt care: history, MDM, physical Personally performed: exam, history, MDM, supervision of care Care discussed with: Medical Student Procedures: n/a Results interpretation: Verified all documentation Verification and Attestation of Medical Student E/M Service A medical student performed and documented this service in my presence. I reviewed and verified all information documented by the medical student and made modifications to such information, when appropriate. I personally performed the physical exam and medical decision making. Rebecca Rosenthal, Jan 25, 2019,13:16 MADONNA SUTTON,MED STUDENT Jan 25, 2019 09:11 REBECCA PINEDA DO Jan 25, 2019 13:13 POS
[2019-01-25 11:58] VITALS: BP 114/71
[2019-01-25] MEDS ORDERED: PIPERACILLIN/TAZO 4.5 GM/NS 100 ML IV NR ×2 (13:17)
--- NOTE | 2019-01-25 15:04 | NUR ---
CALLED DR DAVENPORT TO ADVISE PT IN MUCH DISCOMFORT FROM WHAT SHE DESCRIBES GAS. ALSO PT IS SAYING SHE FEELS LIKE SHE IS HAVING SPASMS IN HER ABDOMEN.
[2019-01-25 15:38] VITALS: BP 112/62
--- NOTE | 2019-01-25 15:57 | NUR ---
SPOKE WITH DR. DAVENPORT, PT'S NEW IV NO GOOD. HE SAID TO SWITCH TO ORAL. SPOKE WITH KITTY IN PHARMACY SHE WILL UNDO THE SCANNED MAGNESIUM AND POTASSIUM THAT WAS NOT GIVEN AND SWITCH PT'S IV MEDS TO ORAL.
--- NOTE | 2019-01-25 16:04 | Diagnostic Imaging Report ---
Procedure: Chest 1 view, AP/PA only. Indication: Chest pain. Comparison: None available. Findings: No focal airspace disease in the visualized lungs. Please note that the posterior lower lobes are poorly evaluated by portable radiography. No pleural effusion or pneumothorax. Stable convex lateral smooth contour abnormality in the right suprahilar region due to a few borderline enlarged lymph nodes seen on prior CT chest from 05/20/2018. No change within the mediastinum or cardiac silhouette. Impression: No acute cardiopulmonary process by portable radiography. Dictated by: Dictated on workstation # [id number]
[2019-01-25 19:35] VITALS: BP 127/59
[2019-01-25] MEDS: PIPERACILLIN/TAZOBACTAM (BULK) 4.5 GM in NS (IVPB) 100 ML IV SCH (19:39)
[2019-01-26] VITALS (7 sets, daily range): BP systolic 114–162; BP diastolic 62–79
[2019-01-26] MEDS: HYDROcodone/APAP 10 MG/325 MG (LORTAB) TAB PO PRN ×2 (00:48→16:57)
--- NOTE | 2019-01-26 02:27 | NUR ---
Dr. Rosenthal notified of pt having large amount dark green emesis (approx. 200 mls) and continuing to have bright red (bloody) stools. New orders rec for Zofran 4 mg iv q 4 hrs prn nausea, cbc & cmp this am, and change diet to clear liquids. Will continue to monitor.
[2019-01-26] MEDS ORDERED: ONDANSETRON 4 MG/2 ML (SDV) Z0FRAN ONE (02:44)
[2019-01-26] MEDS: ONDANSETRON 4 MG/2 ML (SDV) Z0FRAN IVP PRN ×4 (02:47→23:18)
[2019-01-26] MEDS: PIPERACILLIN/TAZOBACTAM (BULK) 4.5 GM in NS (IVPB) 100 ML IV SCH ×3 (04:15→20:25)
[2019-01-26 05:45] LABS: HEMOGLOBIN 8.8 G/DL (11.5-16.0); MEAN PLATELET VOLUME 10.4 FL (7.4-10.4); RED CELL DISTRIBUTION WIDTH 12.6 % (10.0-14.5); WHITE BLOOD COUNT 22.6 10^3/uL (4.3-11.0)
[2019-01-26 06:01] LABS: ALANINE AMINOTRANSFERASE 9 U/L (0-55); ALBUMIN 3.3 GM/DL (3.2-4.5); ALKALINE PHOSPHATASE 68 U/L (40-136); BILIRUBIN,TOTAL 0.3 MG/DL (0.1-1.0); BUN/CREATININE RATIO 10; CALCIUM 9.2 MG/DL (8.5-10.1); CARBON DIOXIDE 27 MMOL/L (21-32); CHLORIDE 90 MMOL/L (98-107); CREATININE SERUM 0.59 MG/DL (0.60-1.30); GFR ESTIMATED > 60; GLUCOSE 112 MG/DL (70-105); POTASSIUM 3.6 MMOL/L (3.6-5.0); SODIUM 131 MMOL/L (135-145); TOTAL PROTEIN 6.3 GM/DL (6.4-8.2)
[2019-01-26] MEDS: DICYCLOMINE 10 MG (BENTYL) CAP PO SCH ×2 (06:05→11:00)
[2019-01-26] MEDS: morphine INJ 4 MG/ML 1 ML (VIAL/SYRINGE) IVP PRN ×2 (08:09→13:21)
--- NOTE | 2019-01-26 08:20 | NUR ---
PT REPORTING 10/10 PAIN IN ABDOMEN. DENIES ANY NAUSEA AT THIS TIME. PRN PAIN MEDICATION ADMINISTERED. RN WENT TO LEAVE ROOM PT VOMITED 450 DARK GREEN EMESIS, PT WAS ALSO INCONTINENT OF STOOL. LARGE AMOUNT OF BLOOD NOTED IN PT BRIEF. DR DIAS NOTIFIED VIA PHONE AND GAVE ORDERS FOR ACUTE ABDOMINAL SERIES. NO OTHER ORDERS RECEIVED AT THIS TIME.
--- NOTE | 2019-01-26 08:58 | Diagnostic Imaging Report ---
INDICATION: Cough and abdominal pain with nausea and vomiting. TIME OF EXAM: 8:47 AM FINDINGS: The heart size is normal. Lungs are clear. Pulmonary vascularity is normal. No infiltrates, effusion or pneumothorax is detected. There are postoperative changes in the lower cervical spine. No free air is identified. There is moderate gaseous distention of small bowel loops throughout the abdomen with scattered air-fluid levels present. Midline surgical skin nafisa are identified. There is a small amount of gas noted throughout the colon. No pathologic calcifications are seen. No unexpected radiopaque foreign objects are identified. IMPRESSION: Postoperative changes abdomen. There is moderate gaseous distention of small bowel with scattered air-fluid levels. This could be on the basis of postoperative ileus but continued progress films are recommended. Dictated by: Dictated on workstation # [id number]
--- NOTE | 2019-01-26 09:20 | Progress Note - Surgery ---
CAIN COLEMAN MED STUDENT 01/26/19 0920: Subjective Date Seen by a Provider: Jan 26, 2019 Time Seen by a Provider: 07:25 Subjective/Events-last exam Ms. Oreilly continues to have 8/10 abdominal pain and blood in her stool as before, and continued to have nausea and green vomit today. Hgb is 8.8, hct is 26. No BMs with stool past several days, she has had belching, denies flatus. Her cough has been productive, with green sputum. New back pain today, describes it as located across much of lower back, not associated with exertion or palpation. Reports she has not been taking her home medications, which concerns her, she is having neuropathic pain without gabapentin. Acute bowel series impression stated moderate gaseous distention of small bowel with scattered air-fluid levels. Review of Systems General: No Chills; Fatigue HEENT: No Sinus Congestion, No Post Nasal Drip Pulmonary: No Dyspnea; Cough Cardiovascular: Lt Headedness; No: Chest Pain Gastrointestinal: Nausea, Vomiting, Abdominal Pain, Hematochezia Musculoskeletal: back pain Neurological: Numbness (neuropathy), Other (neuropathic pain) Objective Exam Vital Signs Date Time Temp Pulse Resp B/P (MAP) Pulse Ox O2 Delivery O2 Flow Rate FiO2 01/26/19 08:00 36.8 98 20 162/79 (106) 92 Room Air 01/26/19 04:10 37.4 104 20 147/75 (99) 91 Room Air 01/26/19 00:59 35.2 87 20 127/62 (83) 91 Room Air 01/25/19 19:45 Room Air 01/25/19 19:35 35.9 96 20 127/59 (81) 92 Room Air 01/25/19 15:38 36.7 101 20 112/62 (79) 90 Room Air 01/25/19 11:58 36.3 85 20 114/71 (85) 96 Nasal Cannula 2.00 I & O 01/26/19 07:00 Intake Total 2690 ml Output Total 1400 ml Balance 1290 ml Capillary Refill : Less Than 3 Seconds General Appearance: Anxious, Mild Distress Neck: Non Tender, Supple Respiratory: Chest Non Tender, No Accessory Muscle Use, No Respiratory Distress, Crackles Cardiovascular: Regular Rate, Rhythm, Normal Peripheral Pulses, Systolic Murmur Peripheral Pulses: 2+ Dorsalis Pedis (R), 2+ Left Dors-Pedis (L), 2+ Radial Pulses (R), 2+ Radial Pulses (L) Gastrointestinal: no organomegaly, no pulsatile mass, abnormal bowel sounds (able to hear heartbeat on auscultation), tenderness (RUQ, all lower quadrants, around umbilicus) Extremity: Non Tender, No Calf Tenderness, No Pedal Edema Neurologic/Psychiatric: Alert, Oriented x3 Skin: Warm/Dry, Other (bruising around incision sites) Lymphatic: No Adenopathy Results Lab Laboratory Tests 01/26/19 05:20: White Blood Count 22.6H, Red Blood Count 2.85L, Hemoglobin 8.8L, Hematocrit 26L, Mean Corpuscular Volume 92, Mean Corpuscular Hemoglobin 31, Mean Corpuscular Hemoglobin Concent 34, Red Cell Distribution Width 12.6, Platelet Count 405H, Mean Platelet Volume 10.4, Sodium Level 131L, Potassium Level 3.6, Chloride Level 90L, Carbon Dioxide Level 27, Anion Gap 14, Blood Urea Nitrogen 6L, Creatinine 0.59L, Estimat Glomerular Filtration Rate > 60, BUN/Creatinine Ratio 10, Glucose Level 112H, Calcium Level 9.2, Corrected Calcium 9.8, Total Bilirubin 0.3, Aspartate Amino Transf (AST/SGOT) 10, Alanine Aminotransferase (ALT/SGPT) 9, Alkaline Phosphatase 68, Total Protein 6.3L, Albumin 3.3 Assessment/Plan Assessment/Plan Assessment/Plan hematochezia and green emesis s/p R colon resection productive cough leukocytosis Monitor blood loss and fluid loss, consider endoscopy. Continue IV antibiotics. Clinical Quality Measures DVT/VTE Risk/Contraindication: RFS Level Per Nursing on Admit: 4+=Very High IRMAMILLIEFREYA Clement DO 01/26/19 1356: Subjective Time Seen by a Provider: 13:38 Subjective/Events-last exam Pt seen and examined, lying in bed and states she doesn't really walk because of cramps. Had some green emesis. Assessment/Plan Assessment/Plan Assessment/Plan S/P R colon resection Ileus Radiologist thought AAS was just an ileus. I explained to pt that she must walk; she is in a vicious cycle now - has ileus because she won't walk, which leads to more cramps and vomiting because bowels are not moving. Pt got up and started walking. Morphine makes nauseous, will try Vicodin. Hold Bentyl, because she is still having cramps and bentyl may make ileus worse. Pt must use IS. Supervisory-Addendum Brief Verification & Attestation Participated in pt care: history, MDM, physical Personally performed: exam, history, MDM Care discussed with: Medical Student Procedures: n/a Verification and Attestation of Medical Student E/M Service A medical student performed and documented this service in my presence. I reviewed and verified all information documented by the medical student and made modifications to such information, when appropriate. I personally performed the physical exam and medical decision making. Freya Caldwell, Jan 26, 2019,13:57 CAIN COLEMAN MED STUDENT Jan 26, 2019 09:20 FREYA MEEHAN DO Jan 26, 2019 13:56 POS
--- NOTE | 2019-01-26 14:04 | NUR ---
"RD ASSESSMENT PMHx: right colon resection PT INTERACTION: Pt was awake and pleasant during nutrition assessment. Pt states current appetite is pretty poor and has been for some time. Pt states following a regular diet at home, and currently has no issues with chewing/swallowing at this time. Pt states no recent issues with n/v/c/d at this time. Note pt had one episodes of emesis on 01/26, per chart review. Note last BM was 01/26 and pt not currently on bowel regimen, per chart review. Pt states no recent wt changes. Note unable to determine recent wt hx, per chart review. ABNORMAL NUTRITION-RELATED LAB VALUES: Na 131 (L); Cl 90 (L); BUN 6 (L); cr 0.59 (L); Pro 6.3 (L); glu 122 (H) Est. kcal needs: 9533-8019 kcal (20-25 kcal/kg) Est. Pro needs: 108-126 g Pro (1.2-1.4 g Pro/kg) PES STATEMENT: Inadequate oral intake (NI-2.1) related to loss of appetite | vomiting as evidenced by pt interview INTERVENTION: Continue with current diet order of Clear Liquid diet. Add Ensure Clear (vary) to meals BID. Provides 180 kcal and 8 Pro per serving. MONITOR/EVALUATE: PO Intake; Plan of Care; Hydration Status; Weight Status; Lab Values Eric Daniels, MS, RD, LD"
[2019-01-27 00:30] VITALS: BP 150/82
[2019-01-27 04:00] VITALS: BP 118/72
[2019-01-27] MEDS: HYDROcodone/APAP 10 MG/325 MG (LORTAB) TAB PO PRN ×5 (04:11→22:07)
[2019-01-27] MEDS: PIPERACILLIN/TAZOBACTAM (BULK) 4.5 GM in NS (IVPB) 100 ML IV SCH ×2 (04:11→13:18)
--- NOTE | 2019-01-27 06:52 | NUR ---
Dr Caldwell notified of pt's bloody stool. No labs order for pt this AM. Ask Dr if want to order labs and no new orders received
[2019-01-27 08:00] VITALS: BP 150/80
[2019-01-27 12:00] VITALS: BP 150/77
--- NOTE | 2019-01-27 14:03 | NUR ---
This RN answered call light and found patient to be sitting on bed clearly uncomfortable with a emesis bucket in from of her with liquid green emesis. Emptied 600 ml, and also emptied her urine hat that had 100 ml concentrated urine.
--- NOTE | 2019-01-27 15:42 | NUR ---
Initial visit by [employer]ionics Systems Technicianlakhwinder Velasco: engaged in rapport building and introduced Spiritual Care Services. No spiritual affiliation shared at this time.
[2019-01-27 15:48] VITALS: BP 114/69
--- NOTE | 2019-01-27 16:12 | Progress Note - Surgery ---
CAIN COLEMAN MED STUDENT 01/27/19 1612: Subjective Date Seen by a Provider: Jan 27, 2019 Time Seen by a Provider: 08:15 Subjective/Events-last exam Patient reports feeling about the same today, although she is much less anxious and desires to go home. Less pain on palpation to abdomen, reports feeling less distended. She reports that she continues to have abdominal pain as before, as well as hematochezia and dark green emesis. She has been walking frequently, had already walked twice before I saw her today and will go on walks on her own without nursing assistance. She reports having neuropathy, would like to restart home medications. Review of Systems General: No Chills; Fatigue HEENT: No Sinus Congestion, No Post Nasal Drip, No Sore Throat Pulmonary: No Dyspnea, No Cough Cardiovascular: No: Chest Pain, Palpitations, Lt Headedness Gastrointestinal: Nausea, Vomiting, Abdominal Pain, Constipation, Hematochezia Genitourinary: No Dysuria, No Frequency; Hematuria (states it is hard to tell at times) Neurological: Numbness (neuropathy), Other (paresthesias from neuropathy) Objective Exam Vital Signs Date Time Temp Pulse Resp B/P (MAP) Pulse Ox O2 Delivery O2 Flow Rate FiO2 01/27/19 15:48 35.6 81 20 114/69 (84) 93 Room Air 01/27/19 12:00 36.6 83 20 150/77 (101) 95 Room Air 01/27/19 08:00 93 Room Air 01/27/19 08:00 36.3 87 20 150/80 (103) 93 Room Air 01/27/19 04:00 36.0 87 18 118/72 (87) 91 Room Air 01/27/19 00:30 36.4 96 18 150/82 (104) 93 Room Air 01/26/19 20:25 37.6 86 16 114/71 (85) 90 Room Air 01/26/19 20:20 Room Air 01/26/19 16:43 37.1 101 16 124/78 (93) 93 Room Air I & O 01/27/19 07:00 Intake Total 2060 ml Output Total 1000 ml Balance 1060 ml Capillary Refill : Less Than 3 Seconds General Appearance: Anxious, Mild Distress Neck: Non Tender, Supple Respiratory: Chest Non Tender, Normal Breath Sounds, No Accessory Muscle Use, No Respiratory Distress Cardiovascular: Regular Rate, Rhythm, Normal Peripheral Pulses, Systolic Murmur Peripheral Pulses: 2+ Dorsalis Pedis (R), 2+ Left Dors-Pedis (L), 2+ Radial Pulses (R), 2+ Radial Pulses (L) Gastrointestinal: no organomegaly, no pulsatile mass, abnormal bowel sounds (able to hear heartbeat on auscultation), tenderness (RUQ, all lower quadrants, around umbilicus) Extremity: Non Tender, No Calf Tenderness, No Pedal Edema Neurologic/Psychiatric: Alert, Oriented x3 Skin: Warm/Dry, Other (bruising around incision sites) Lymphatic: No Adenopathy Results Lab Microbiology 01/25/19 Gram Stain - Final, Resulted 01/25/19 Sputum Culture - Preliminary, Resulted Culture In Progress Assessment/Plan Assessment/Plan Assessment/Plan s/p R colon resuction post-op ileus Encouraged to continue walking. Continue pain management, IS, antibiotics. Consider starting on home medications if n/v stops or bowels begin moving. Clinical Quality Measures DVT/VTE Risk/Contraindication: RFS Level Per Nursing on Admit: 4+=Very High HOMAR DIAS DO 01/27/19 1742: Subjective Time Seen by a Provider: 17:32 Subjective/Events-last exam Pt seen, actually looks better than she has previously. States she feels a little better, but still has some bloating, pain and nausea. Only passing blood clots and not really eating much. Objective Exam Gastrointestinal: distended (minimally) Assessment/Plan Assessment/Plan Assessment/Plan Will start home meds, order AAS in am, if pain is under control and she is eating then maybe can go home. Supervisory-Addendum Brief Verification & Attestation Participated in pt care: history, MDM, physical Personally performed: exam, history, MDM Care discussed with: Medical Student Procedures: n/a Verification and Attestation of Medical Student E/M Service A medical student performed and documented this service in my presence. I reviewed and verified all information documented by the medical student and made modifications to such information, when appropriate. I personally performed the physical exam and medical decision making. Homar Dias, Jan 27, 2019,17:42 CAIN COLEMAN MED STUDENT Jan 27, 2019 16:12 HOMAR MEEHAN DO Jan 27, 2019 17:42 POS
[2019-01-27] MEDS: ONDANSETRON 4 MG (ZOFRAN) ORAL DISSOLVE TAB PO PRN (18:39)
[2019-01-27 19:50] VITALS: BP 117/67
[2019-01-27] MEDS: GABAPENTIN 600 MG (NEURONTIN) TAB PO SCH (20:55)
[2019-01-27] MEDS: METHOCARBAMOL 500 MG (ROBAXIN) TABLET PO SCH (20:55)
[2019-01-28] VITALS: BP 121/70
[2019-01-28] MEDS: HYDROcodone/APAP 10 MG/325 MG (LORTAB) TAB PO PRN ×3 (02:20→13:21)
[2019-01-28 04:00] VITALS: BP 112/71
[2019-01-28] MEDS ORDERED: VENlafaxine XR 75 MG (EFFEXOR XR) CAP PO SCH (07:00)
--- NOTE | 2019-01-28 07:10 | NUR ---
0648 - Received call from lab about positive sputum culture result. 0692 - Notified Dr. Caldwell about result. No new orders given.
--- NOTE | 2019-01-28 07:38 | Progress Note - Surgery ---
CAIN COLEMAN MED STUDENT 01/28/19 0738: Subjective Date Seen by a Provider: Jan 28, 2019 Time Seen by a Provider: 06:30 Subjective/Events-last exam Ms. Oreilly reports feeling better today, her abdominal pain is down to 6/10. She still has hematochezia, but reports it is reduced. She is still nauseous, but has not vomited since yesterday. She continues to walk frequently and on her own, she wants to go home as soon as she can. She has started her home medications. Review of Systems General: No Chills; Fatigue HEENT: No Sinus Congestion, No Sore Throat Pulmonary: No Dyspnea; Cough (improved from before) Cardiovascular: Lt Headedness (mild); No: Chest Pain Gastrointestinal: Nausea, Abdominal Pain, Hematochezia (improved); No: Vomiting Genitourinary: Dysuria (intermittent); No Frequency; Hematuria (improved) Musculoskeletal: neck pain (chronic), back pain (chronic) Neurological: Numbness (neuropathy), Other (neuropathy pain) Objective Exam Vital Signs Date Time Temp Pulse Resp B/P (MAP) Pulse Ox O2 Delivery O2 Flow Rate FiO2 01/28/19 04:00 36.2 80 18 112/71 (85) 92 Room Air 01/28/19 00:00 36.2 92 18 121/70 (87) 94 Room Air 01/27/19 20:00 Room Air 01/27/19 19:50 36.0 89 20 117/67 (84) 94 Room Air 01/27/19 15:48 35.6 81 20 114/69 (84) 93 Room Air 01/27/19 12:00 36.6 83 20 150/77 (101) 95 Room Air 01/27/19 08:00 93 Room Air 01/27/19 08:00 36.3 87 20 150/80 (103) 93 Room Air I & O 01/28/19 07:00 Intake Total 1290 ml Output Total 1275 ml Balance 15 ml Capillary Refill : Less Than 3 Seconds General Appearance: No Apparent Distress, Obese Neck: Non Tender, Supple Respiratory: Chest Non Tender, Normal Breath Sounds, No Accessory Muscle Use, No Respiratory Distress Cardiovascular: Regular Rate, Rhythm, Normal Peripheral Pulses, Systolic Murmur Peripheral Pulses: 2+ Dorsalis Pedis (R), 2+ Left Dors-Pedis (L), 2+ Radial Pulses (R), 2+ Radial Pulses (L) Gastrointestinal: normal bowel sounds, soft, abnormal bowel sounds (pulse heard on auscultation of abdomen, most prominent in LUQ), tenderness (RUQ, hypogastric) Extremity: Non Tender, No Calf Tenderness, No Pedal Edema Neurologic/Psychiatric: Alert, Oriented x3, Normal Mood/Affect Skin: Warm/Dry, Other (bruising around incision sites) Lymphatic: No Adenopathy Results Lab Microbiology 01/25/19 Gram Stain - Final, Resulted 01/25/19 Sputum Culture - Preliminary, Resulted Moraxella catarrhalis Haemophilus influenza See Comments Culture In Progress Assessment/Plan Assessment/Plan Assessment/Plan s/p R colon resection post-op ileus Encouraged to continue walking, IS. Continue pain management, antibiotics. Continue home medications. Clinical Quality Measures DVT/VTE Risk/Contraindication: RFS Level Per Nursing on Admit: 4+=Very High HOMAR DIAS DO 01/28/19 1223: Subjective Time Seen by a Provider: 12:01 Subjective/Events-last exam Pt seen and examined, states no emesis. Pt asking to go home. Objective Exam Gastrointestinal: normal bowel sounds, soft Assessment/Plan Assessment/Plan Assessment/Plan DC IV and DC home Supervisory-Addendum Brief Verification & Attestation Participated in pt care: history, MDM, physical Personally performed: exam, history, MDM Care discussed with: Medical Student Procedures: n/a Verification and Attestation of Medical Student E/M Service A medical student performed and documented this service in my presence. I reviewed and verified all information documented by the medical student and made modifications to such information, when appropriate. I personally performed the physical exam and medical decision making. Homar Dias, Jan 28, 2019,12:23 CAIN COLEMAN MED STUDENT Jan 28, 2019 07:38 HOMAR MEEHAN DO Jan 28, 2019 12:23 POS
[2019-01-28] MEDS: GABAPENTIN 600 MG (NEURONTIN) TAB PO SCH ×2 (07:56→13:18)
[2019-01-28] MEDS: METHOCARBAMOL 500 MG (ROBAXIN) TABLET PO SCH (07:56)
[2019-01-28 08:00] VITALS: BP 100/64
[2019-01-28 08:41] LABS: BASOPHILS # (AUTO) 0.1 10^3/uL (0.0-0.1); BASOPHILS % (AUTO) 0 % (0-10); EOSINOPHILS # (AUTO) 0.7 10^3/uL (0.0-0.3); EOSINOPHILS % (AUTO) 4 % (0-10); HEMATOCRIT 28 % (35-52); HEMOGLOBIN 8.9 G/DL (11.5-16.0); LYMPHOCYTES # (AUTO) 2.2 X 10^3 (1.0-4.0); LYMPHOCYTES % (AUTO) 13 % (12-44); MEAN CORPUSCULAR HEMOGLOBIN 30 PG (25-34); MEAN CORPUSCULAR HGB CONC 32 G/DL (32-36); MEAN CORPUSCULAR VOLUME 94 FL (80-99); MEAN PLATELET VOLUME 9.3 FL (7.4-10.4); MONOCYTES # (AUTO) 2.2 X 10^3 (0.0-1.0); MONOCYTES % (AUTO) 13 % (0-12); NEUTROPHILS # (AUTO) 12.2 X 10^3 (1.8-7.8); NEUTROPHILS % (AUTO) 71 % (42-75); PLATELET COUNT 621 10^3/uL (130-400); RED CELL DISTRIBUTION WIDTH 12.3 % (10.0-14.5); WHITE BLOOD COUNT 17.3 10^3/uL (4.3-11.0)
[2019-01-28 09:03] LABS: BAND NEUTROPHILS 2 %; LYMPHOCYTES % (MANUAL) 9 %; MONOCYTES % (MANUAL) 8 %; NEUTROPHILS % (MANUAL) 81 %; POIKILOCYTOSIS SLIGHT; POLYCHROMASIA MODERATE; TOXIC GRANULATION/VACUOLAZATIO 2+
[2019-01-28 09:04] LABS: HYPOCHROMASIA SLIGHT; STOMATOCYTES MODERATE
[2019-01-28] MEDS: ONDANSETRON 4 MG (ZOFRAN) ORAL DISSOLVE TAB PO PRN (09:10)
--- NOTE | 2019-01-28 09:16 | NUR ---
This RN in to check on patient. She is laying back in bed with what appears to be a distended abdomen. SHe reports felling better but then added that she is trying to make herself believe it. Getting Zofran for nausea by RN at this time and is to have a KUB this today.
[2019-01-28] MEDS ORDERED: AUGMENTIN 875 MG TAB (AMOXICILLIN/CLAVULANATE) PO SCH (09:48)
--- NOTE | 2019-01-28 10:11 | Diagnostic Imaging Report ---
INDICATION: Postop with abdominal distention. TIME OF EXAM: 9:48 a.m. COMPARISON: Correlation is made with prior abdominal radiographs from 01/26/2019. FINDINGS: The lungs remain clear. There is no effusion. There continues to be fairly significant distention of small bowel throughout the abdomen with scattered air-fluid levels. There is a small amount of gas within the rectum. No definite pneumatosis is identified. No free air is seen. There are midline skin nafisa. No unexpected radiopaque foreign body is seen. IMPRESSION: Continued gaseous distention of small bowel loops throughout the abdomen with scattered air-fluid levels, similar to the examination from two days earlier. Again, this could be on a postoperative basis from ileus. The possibility of distal small bowel obstruction cannot be entirely excluded. Continued progress films are recommended. Consideration could be given to performance of a CT for better characterization. Dictated by: Dictated on workstation # [id number]
[2019-01-28 12:00] VITALS: BP 120/74
--- NOTE | 2019-01-28 12:00 | NUR ---
REQUESTING TO GO HOME, DENIES NAUSEA AT THIS TIME, ABD SOFT, BOWEL SOUND PRESENT, HAD SMALL BLOODY STOOL, ABD INCISION WITHOUT REDNESS OR DRAINAGE, BRUISING ABD BY INCISION, REFUSED CLEAR LIQUID DIET, STATES SHE WILL EAT WHEN SHE GETS HOME.
[2019-01-28] MEDS ORDERED: AMOX1TAB12 PO (12:22)
--- NOTE | 2019-01-28 13:33 | NUR ---
DISCHARGE PLANNING: Patient is very happy about discharge today. She is requesting a walker to use due to abdominal pain and distance to get to her apartment from the parking lot. Asked Paulette for an order and he gave a verbal order which was entered.
[2019-01-28] MEDS ORDERED: [UNRECOGNIZED DRUG - OTHER] (13:47)
[2019-01-28 14:10] VITALS: BP 120/74
--- NOTE | 2019-01-28 14:10 | NUR ---
ATIF CADENA demonstrates understanding of discharge instructions and accurately returns instructions upon questioning. Copy of Post-Discharge Instructions and Medication Discharge Instructions given to PATIENT. ATIF CADENA is able to manage continuing needs after discharge. Patients belongings returned to PATIENT. Skin dry and intact; no breakdown noted. Patient discharged from [facility]- on 01/28/19 at 1410. ATIF CADENA left floor via W/C, accompanied by STAFF.
== END 2019-01-28 14:10 | disposition home or self-care (01) | DRG 330 ==
LOC: 4TH 08:40 → INTOOBSV 08:40 → SURG 08:41 → OBSVTOIN 10:54 → 4TH 13:49
PROVIDERS: ADMIT Surgery; ATTEND Surgery
PROC: 0DB78ZX Excision of Stomach, Pylorus, Via Natural or Artificial Opening Endoscopic, Diagnostic (ICD-10-PCS; 2019-01-21)
PROC: 0DB68ZX Excision of Stomach, Via Natural or Artificial Opening Endoscopic, Diagnostic (ICD-10-PCS; 2019-01-21)
PROC: 0DB48ZX Excision of Esophagogastric Junction, Via Natural or Artificial Opening Endoscopic, Diagnostic (ICD-10-PCS; 2019-01-21)
PROC: 0DBF0ZZ Excision of Right Large Intestine, Open Approach (ICD-10-PCS; principal; 2019-01-21 09:32)
DX: D12.0 Benign neoplasm of cecum (principal); D12.2 Benign neoplasm of ascending colon; K64.0 First degree hemorrhoids; K91.89 Other postprocedural complications and disorders of digestive system; K56.7 Ileus, unspecified; K92.1 Melena; K29.70 Gastritis, unspecified, without bleeding; F32.9 Major depressive disorder, single episode, unspecified; J44.9 Chronic obstructive pulmonary disease, unspecified; F17.210 Nicotine dependence, cigarettes, uncomplicated; K44.9 Diaphragmatic hernia without obstruction or gangrene
CPT/HCPCS: 36415; 71045; 74022; 80048; 80053; 82565; 83735; 85007; 85014; 85018; 85027; 86850; 86900; 86901; 87070; 87077; 87185; 87205; 88305; 88309; 94664

== ENCOUNTER → 2019-02-05 | Outpatient (CLI) | payer MEDICARE ==
[~2019-02-05] MED LIST changes: +AMOX1TAB12 PO; +HYDR-3820 PO; +VENL75CA93 PO; +[UNRECOGNIZED DRUG - OTHER]
[2019-02-05 15:29] LABS: BILIRUBIN,URINE NEGATIVE (NEGATIVE); CLARITY,URINE SL CLOUDY; COLOR,URINE YELLOW; GLUCOSE, URINE (UA) NEGATIVE (NEGATIVE); KETONES,URINE NEGATIVE (NEGATIVE); LEUKOCYTE ESTERASE ,URINE TRACE (NEGATIVE); NITRITE,URINE NEGATIVE (NEGATIVE); PROTEIN,URINE TRACE (NEGATIVE)
[2019-02-05 15:41] LABS: BACTERIA,URINE FEW /HPF; SQUAMOUS EPITHELIAL CELL,UR 25-50 /HPF
== END ==
LOC: LAB 15:14
PROVIDERS: ATTEND Surgery
DX: R30.0 Dysuria (principal)
CPT/HCPCS: 81000; 87088

== ENCOUNTER → 2019-03-31 | Outpatient (CLI) | payer MEDICARE ==
[~2019-03-31] MED LIST changes: -TRAZ-222 PO; +TRZ50T PO
--- NOTE | 2019-03-31 16:17 | Diagnostic Imaging Report ---
INDICATION: Postmenopausal female. COMPARISON: None. FINDINGS: AP Spine L2-L4: [BMD (g/cm2): 0.987] [T-Score: -1.8] [Z-Score: -1.4] [BMD Previous: NA] [BMD % Change: NA] LT Hip Neck: [BMD (g/cm2): 0.798] [T-Score: -1.7] [Z-Score: -1.0] LT Hip Total: [BMD (g/cm2):0.778] [T-Score:-1.8] [Z-Score: -1.5] [BMD Previous: NA] [BMD % Change: NA] RT Hip Neck: [BMD (g/cm2):0.772] [T-Score:-1.9] [Z-Score:-1.2] RT Hip Total: [BMD (g/cm2):0.759] [T-score:-2.0] [Z-Score:-1.6] [BMD Previous:NA] [BMD % Change:NA] *Indicates significant change from prior examination based on 95% confidence level. World Health Organization criteria for BMD interpretation classify patients as Normal (T-score at or above -1.0), Osteopenic (T-score between -1.0 and -2.5) or Osteoporotic (T-score at or below -2.5). LIMITATIONS AND MODIFICATION: None. FRACTURE RISK (FRAX SCORE): The ten year probability of (%): Major Osteoporotic Fracture: [10.6] Hip Fracture: [1.5] IMPRESSION: 1. Osteopenia (Low bone mass). 2. Baseline examination. 3. See below National Osteoporosis Foundation guidelines on when to potentially initiate pharmacologic therapy. Based on the National Osteoporosis Foundation Guidelines, pharmacologic treatment should be initiated in any of the following, unless clinical conditions suggest otherwise: * Any patient with prior fragility fracture of the hip or vertebrae. A spine fracture indicates 5X risk for subsequent spine fracture and 2X risk for subsequent hip fracture. * Osteoporosis (T-score <-2.5). * Postmenopausal women and men age 50 and older with low bone mass/osteopenia (T-score between -1.0 and -2.5) by DXA and 10-year major osteoporotic fracture greater than 20% or a 10-year probability of hip fracture greater than 3%. These fracture risks are supplied above in the FRAX score, if applicable. * Clinician judgment and/or patient preferences may indicate treatment for people with 10-year fracture probabilities above or below these levels. Dictated by: Dictated on workstation # [id number]
== END ==
LOC: RAD 12:54
PROVIDERS: ATTEND Nurse Practitioner Family
DX: Z00.00 Encounter for general adult medical examination without abnormal findings (principal); M81.0 Age-related osteoporosis without current pathological fracture; M85.80 Other specified disorders of bone density and structure, unspecified site; Z78.0 Asymptomatic menopausal state
CPT/HCPCS: 77080

== ENCOUNTER → 2019-12-16 | Outpatient (CLI) | payer MEDICARE ==
[~2019-12-16] MED LIST changes: +ACHYD1T PO; -HYDR-3820 PO
--- NOTE | 2019-12-16 20:05 | Diagnostic Imaging Report ---
PROCEDURE: MRI lumbar spine. TECHNIQUE: Multiplanar, multisequence MRI of the lumbar spine was performed without contrast. DATE: December 16, 2019. COMPARISON: None. INDICATION: 59-year-old female, low back pain. FINDINGS: There is a lumbar levoscoliosis. The anterior to posterior alignment of the spine is unremarkable. There is no evidence of a diffuse marrow infiltrating or replacing process. There is a T1 hypointense and T2 hyperintense lesion in the L1 vertebral body measuring 12 mm in size. This is not specific. There is no additional identified bone lesion. The visualized cord and conus medullaris is unremarkable and terminates at the L2 level. There is moderate disc height loss at L3-L4. There is moderate to severe disc height loss at L4-L5 and moderate disc height loss at L5-S1. There are Modic endplate degenerative changes most notable adjacent to the L4-L5 disc space. There is a rudimentary disc at the level of S1-S2 . L1-L2: There is no disc bulge. The facet joints and ligamentum flavum are unremarkable. There is no foraminal narrowing. There is no spinal canal stenosis. L2-L3: There is mild diffuse disc bulge. The facet joints and ligamentum flavum are unremarkable. There is no foraminal narrowing. There is no spinal canal stenosis. L3-L4: There is mild diffuse disc bulge. The facet joints and ligamentum flavum are unremarkable. There is no foraminal narrowing. There is no spinal canal stenosis. L4-L5: There is diffuse disc bulge eccentric to the right. There is a superimposed right foraminal disc extrusion extending above the inferior endplate of L4 by 7 mm. There is moderate to severe narrowing of the right lateral recess. There are mild right facet degenerative changes. There is moderate right foraminal narrowing. There is no spinal canal stenosis. L5-S1: There is diffuse disc bulge eccentric to the left with superimposed left paracentral disc protrusion without clear nerve root contact although disc material does near the descending left S1 nerve root. The facet joints and ligamentum flavum are unremarkable. There is moderate to severe left foraminal narrowing. There is no spinal canal stenosis. IMPRESSION: 1. Lumbar levoscoliosis. 2. Disc and facet degenerative changes of the lumbar spine as described in detail level by level above. Findings are most notable at L4-L5 and L5-S1. 3. Nonspecific bone lesion involving the L1 vertebral body measuring 12 mm in size. Recommend comparison with prior cross-sectional imaging if available to assess for potential stability of the lesion. If stability cannot be documented, CT lumbar spine without contrast is recommended for further assessment. Dictated by: Dictated on workstation # [id number]
== END ==
LOC: RAD 15:30
PROVIDERS: ATTEND Orthopaedic Surgery
DX: M41.86 Other forms of scoliosis, lumbar region (principal); M51.36 Other intervertebral disc degeneration, lumbar region; M51.26 Other intervertebral disc displacement, lumbar region; M51.27 Other intervertebral disc displacement, lumbosacral region; M48.061 Spinal stenosis, lumbar region without neurogenic claudication; M48.07 Spinal stenosis, lumbosacral region; M47.816 Spondylosis without myelopathy or radiculopathy, lumbar region; M47.817 Spondylosis without myelopathy or radiculopathy, lumbosacral region; M51.37 Other intervertebral disc degeneration, lumbosacral region
CPT/HCPCS: 72148

== ENCOUNTER 2020-07-25 05:37 | Outpatient (CLI) | payer MEDICARE ==
[~2020-07-25 05:37] MED LIST changes: +METH-731 PO; -METH500T7 PO
[2020-07-25] MEDS ORDERED: TRZ50T PO (11:26)
[2020-07-25] MEDS ORDERED: CELE100C PO (11:26)
[2020-07-25] MEDS ORDERED: CALC-794 PO (11:26)
[2020-07-25] MEDS ORDERED: CETI10CA PO (11:26)
== END 2020-07-25 12:32 | disposition home or self-care (01) ==
LOC: PREOP 05:37
PROVIDERS: ATTEND Surgery
DX: Z01.818 Encounter for other preprocedural examination (principal)

== ENCOUNTER 2020-08-01 08:30 | Day surgery (SDC) | payer MEDICARE, OTHER ==
[~2020-08-01] VITALS: Ht 162 cm; Wt 90.0 kg
[~2020-08-01 08:30] MED LIST changes: +CALC-794 PO; +CELE100C PO; +CETI10CA PO
[2020-08-01] MEDS ORDERED: LACTATED RINGERS 1,000 ML IV ONE (08:39)
[2020-08-01] MEDS ORDERED: LACTATED RINGERS 1,000 ML IV STA (08:41)
[2020-08-01 08:50] VITALS: BP 124/66
--- NOTE | 2020-08-01 09:01 | Progress Note-Pre Operative ---
Pre-Operative Progress Note H&P Reviewed The H&P was reviewed, patient examined and no changes noted. Time Seen by Provider: 08:58 Date H&P Reviewed: August 01, 2020 Time H&P Reviewed: 08:59 Pre-Operative Diagnosis: Hx of Polyps FREYA DIAS DO August 01, 2020 09:01
[2020-08-01] MEDS ORDERED: PROPOFOL INJECTION 50 ML IV ONE (09:43)
[2020-08-01] MEDS ORDERED: MIDAZOLAM 2 MG/2 ML (VERSED) VIAL ONE (09:43)
[2020-08-01 10:23] VITALS: BP 122/57
[2020-08-01 10:30] VITALS: BP 124/62
--- NOTE | 2020-08-01 10:31 | Progress Note-Post Operative ---
Post-Operative Progess Note Surgeon (s)/Eyelet Machine Operator (s) Surgeon FREYA DIAS DO Eyelet Machine Operator: none Pre-Operative Diagnosis Hx of Polyps Post-Operative Diagnosis polyp diverticula hemorrhoids Procedure & Operative Findings Date of Procedure 08/01/20 Procedure Performed/Findings After informed consent was obtained, the patient was brought to the endoscopy suite, placed in bed in left lateral decubitus position. She was administered IV sedation by the FILLING HAULER WEAVING who then monitored her vitals the entire time, heart rate, blood pressure and pulse ox, started the colonoscopy. On the way in, noted [ diverticula], then pushed all the way to the anastomosis about 150 cm in, took a picture of the anastomosis and then slowly withdrew the scope insufflating to look circumferentially at the acosta looking the anastomosis and just slightly away from this noted a polyp. I elected to do a hot biopsy and I got a good specimen; then continued up the colon to the hepatic flexure, down the transverse colon, splenic flexure, into the descending colon where I saw another polyp and did another hot biopsy, down into the sigmoid did another hot biopsy here and finally into the rectum, retroflexed in the rectal vault, saw some small internal hemorrhoids and took a picture; then removed the scope. The patient tolerated the procedure. She was recovered in endoscopy suite. Anesthesia Type IV sedation by FILLING [employer] Estimated Blood Loss Estimated blood loss (mL): scant Specimens/Packing Specimens Removed polyp near anastomosis desc colon polyp sigmoid polyp FREYA DIAS DO August 01, 2020 10:31
--- NOTE | 2020-08-01 10:32 | Endoscopy Discharge Instruct ---
Endo Procedure/Findings Findings 1.: Polyp 2.: Diverticulosis 3.: Internal Hemorrhoids Discharge Instructions - Activity: You might feel a little sleepy until tomorrow. This is due to the medicine you received to relax you. Until tomorrow, you should: NOT drive a car, operate machinery or power tools. NOT drink any alcoholic beverages. NOT make any important decisions or sign importortant papers. Do not return to work until tomorrow, unless otherwise instructed. Resume previous activities tomorrow. Diet: Start by taking liquids. If you tolerate liquids, advance to solid food. 1.: Colonscopy in 5 years Notify Physician - If you experience excessive bleeding, unusual abdominal pain, fever, or chest pain, contact your doctor immediately. FREYA DIAS DO August 01, 2020 10:32
--- NOTE | 2020-08-01 10:57 | Anesthesia-General Post-Op ---
MAC Patient Condition Mental Status/LOC: Same as Preop Cardiovascular: Satisfactory Nausea/Vomiting: Absent Respiratory: Satisfactory Pain: Controlled Complications: Absent Post Op Complications Complications None Follow Up Care/Instructions Patient Instructions None needed. Anesthesiology Discharge Order Discharge Order Patient is doing well, no complaints, stable vital signs, no apparent adverse anesthesia problems. No complications reported per nursing. DALLIN MASON CRNA August 01, 2020 10:57
[2020-08-01 11:00] VITALS: BP 129/68
== END 2020-08-01 11:05 | disposition home or self-care (01) ==
LOC: ENDO 08:30
PROVIDERS: ATTEND Surgery
DX: K63.5 Polyp of colon (principal); D12.6 Benign neoplasm of colon, unspecified; K57.30 Diverticulosis of large intestine without perforation or abscess without bleeding; K64.8 Other hemorrhoids; K21.9 Gastro-esophageal reflux disease without esophagitis; J44.9 Chronic obstructive pulmonary disease, unspecified; G62.9 Polyneuropathy, unspecified; E66.9 Obesity, unspecified; F41.9 Anxiety disorder, unspecified; F32.9 Major depressive disorder, single episode, unspecified; F17.210 Nicotine dependence, cigarettes, uncomplicated; Z99.89 Dependence on other enabling machines and devices; Z98.0 Intestinal bypass and anastomosis status; Z68.36 Body mass index [BMI] 36.0-36.9, adult; Z79.899 Other long term (current) drug therapy; Z79.891 Long term (current) use of opiate analgesic; Z82.49 Family history of ischemic heart disease and other diseases of the circulatory system; Z83.3 Family history of diabetes mellitus
CPT/HCPCS: 88305

== ENCOUNTER 2020-08-29 05:29 | Outpatient (RCR) | payer MEDICARE ==
[2020-08-24 13:31] VITALS: BP 134/70
[2020-08-24 14:21] LABS: BILIRUBIN,URINE NEGATIVE (NEGATIVE); CLARITY,URINE CLEAR; COLOR,URINE YELLOW; GLUCOSE, URINE (UA) NEGATIVE (NEGATIVE); KETONES,URINE NEGATIVE (NEGATIVE); LEUKOCYTE ESTERASE ,URINE NEGATIVE (NEGATIVE); NITRITE,URINE NEGATIVE (NEGATIVE); PROTEIN,URINE NEGATIVE (NEGATIVE)
[2020-08-24 14:22] LABS: BASOPHILS # (AUTO) 0.1 10^3/uL (0.0-0.1); BASOPHILS % (AUTO) 1 % (0-10); EOSINOPHILS # (AUTO) 0.4 10^3/uL (0.0-0.3); EOSINOPHILS % (AUTO) 4 % (0-10); HEMATOCRIT 42 % (35-52); LYMPHOCYTES # (AUTO) 2.7 10^3/uL (1.0-4.0); LYMPHOCYTES % (AUTO) 28 % (12-44); MEAN CORPUSCULAR HEMOGLOBIN 25 pg (25-34); MEAN CORPUSCULAR HGB CONC 31 g/dL (32-36); MEAN CORPUSCULAR VOLUME 79 fL (80-99); MEAN PLATELET VOLUME 10.4 fL (9.0-12.2); MONOCYTES # (AUTO) 0.7 10^3/uL (0.0-1.0); MONOCYTES % (AUTO) 7 % (0-12); NEUTROPHILS % (AUTO) 60 % (42-75); PLATELET COUNT 373 10^3/uL (130-400); WHITE BLOOD COUNT 9.9 10^3/uL (4.3-11.0)
--- NOTE | 2020-08-24 14:23 | Diagnostic Imaging Report ---
Indication: Preop knee arthroplasty, degenerative joint disease PA and lateral chest Heart size and pulmonary vascularity are normal. Lungs are clear. There are no effusions or pneumothoraces. IMPRESSION: Negative chest. Dictated by: Dictated on workstation # [id number]
[2020-08-24 14:36] LABS: INR 1.1 (0.8-1.4); PROTHROMBIN TIME PATIENT 14.4 SEC (12.2-14.7)
[2020-08-24 14:42] LABS: BACTERIA,URINE TRACE /HPF; WBC,URINE 0-2 /HPF
[2020-08-24 14:43] LABS: ALANINE AMINOTRANSFERASE 23 U/L (0-55); ALKALINE PHOSPHATASE 83 U/L (40-136); BILIRUBIN,TOTAL 0.4 MG/DL (0.1-1.0); BUN/CREATININE RATIO 9; CARBON DIOXIDE 28 MMOL/L (21-32); CHLORIDE 99 MMOL/L (98-107); CREATININE SERUM 0.66 MG/DL (0.60-1.30); GFR ESTIMATED > 60; GLUCOSE 81 MG/DL (70-105); POTASSIUM 4.2 MMOL/L (3.6-5.0); SODIUM 135 MMOL/L (135-145); TOTAL PROTEIN 7.9 GM/DL (6.4-8.2)
[2020-08-24 14:51] LABS: ERYTHROCYTE SEDIMENTATION RATE 12 MM/HR (0-30)
[~2020-08-29] VITALS: Ht 162.6 cm; Wt 95.1 kg
[~2020-08-29 05:29] MED LIST changes: +ASPI-999 PO
[2020-08-31] MEDS ORDERED: NS IV 1000 ML 1,000 ML IV SCH (07:30)
[2020-08-31] MEDS ORDERED: oxyCODONE/APAP 5/325MG (PERCOCET 5) TABLET PO PRN (07:30)
[2020-08-31] MEDS ORDERED: ONDANSETRON 4 MG/2 ML (SDV) Z0FRAN IVP PRN (07:30)
[2020-08-31] MEDS ORDERED: diphenhydrAMINE 50 MG/ML INJ (BENADRYL) IVP PRN (07:30)
[2020-08-31] MEDS ORDERED: ACETAMINOPHEN 325 MG TABLET PO PRN (07:30)
[2020-08-31] MEDS ORDERED: morphine PCA 100 MG/100 ML BAG IV PRN (07:30)
[2020-08-31] MEDS ORDERED: SENNA W/DOCUSATE (SENOKOT S) TABLET PO SCH (09:00)
--- NOTE | 2020-08-31 15:21 | Diagnostic Imaging Report ---
EXAMINATION: Knee radiographs, 2 views. COMPARISON: None. HISTORY: 60-year-old female, left total knee replacement. FINDINGS: There is a left total knee prosthesis. The hardware is intact. There is no periprosthetic lucency. There are anterior skin nafisa. Soft tissue gas likely relates to the recent postoperative state of the patient. There is no identified acute fracture. IMPRESSION: Intact left total knee prosthesis without identified complication. Dictated on workstation # [id number]
[2020-08-31] MEDS ORDERED: CEFUROXIME INJECTION 750 MG in WATER (STERILE) FOR INJECTION 10 ML IV SCH (15:30)
[2020-09-01] MEDS ORDERED: MULTIVIT W/MINERALS TAB (THERAGRAN M) PO SCH (07:00)
[2020-09-01] MEDS ORDERED: ENOXAPARIN 30 MG/0.3 ML (LOVENOX) SYR SC SCH (08:00)
== END 2020-08-29 09:09 | disposition home or self-care (01) ==
LOC: PREOP 05:29
PROVIDERS: ATTEND Orthopaedic Surgery
DX: Z01.812 Encounter for preprocedural laboratory examination (principal); M17.12 Unilateral primary osteoarthritis, left knee
CPT/HCPCS: 36415; 71046; 80053; 81000; 85025; 85610; 85652; 86850; 86900; 86901; 87081; 87635

== ENCOUNTER 2020-08-31 08:31 | Inpatient (IN) | payer MEDICARE ==
--- NOTE | 2020-08-24 19:23 | HISTORY AND PHYSICAL ---
DATE OF SERVICE: ADMISSION HISTORY AND PHYSICAL DATE OF ADMISSION: 08/31/2020. DATE OF SERVICE: 08/31/2020. This will be for inpatient admission on 08/31/2020. Date of surgery 08/31/2020, for left total knee arthroplasty. The patient will require regular inpatient admission due to pain management, comorbidities, and need for physical therapy. HISTORY OF PRESENT ILLNESS: The patient is a 60-year-old female with progressive worsening left knee pain. She has previously undergone lumbar and cervical fusion. She reports medial knee pain in the left, which is limiting her ability to ambulate. She is concerned that this could affect her recent lumbar surgery. She has undergone treatment with injections without relief. Radiographs reveal severe tricompartmental osteoarthritis. Due to functional impairment and failure to improve with conservative measures, the patient has elected to proceed with surgical intervention. REVIEW OF SYSTEMS: No chest pain, no shortness of breath, no dysuria. PAST MEDICAL HISTORY: Thyroid, COPD, headaches, lung disease, thyroid disease, depression, carpal tunnel syndrome, and arthritis. PAST SURGICAL HISTORY: Left shoulder scope C5-C7 fusion, trigger finger, left knee arthroscopy. FAMILY HISTORY: Significant for Alzheimer's, cardiovascular disease, diabetes. PRIMARY CARE PROVIDER: Maria Dolores Ching in [place]. MEDICATIONS: Gabapentin, Celexa, methocarbamol, trazodone, Celebrex, ____, cyclobenzaprine, aspirin, Mucinex. ALLERGIES: No known drug allergies. SOCIAL HISTORY: The patient smokes 1 pack per day. Denies alcohol use. PHYSICAL EXAMINATION: GENERAL: The patient is well-developed, well-nourished, in no acute distress. HEENT: Normocephalic, atraumatic. Pupils are equal, round, reactive to light. Oropharynx is clear. NECK: Supple, no lymphadenopathy. LUNGS: Clear to auscultation bilaterally. HEART: Regular rate and rhythm. ABDOMEN: Soft, nontender, nondistended. EXTREMITIES: The left knee demonstrates tenderness along the medial joint line. She has a moderate effusion. There is no erythema or warmth. Range of motion 0/3/120. She ambulates with an antalgic gait. She has no varus or valgus laxity. Negative anterior and posterior drawer. Patella tracks well. IMPRESSION: Severe left knee osteoarthritis. PLAN: Left total knee arthroplasty. The risks, benefits, options, ramifications and recovery have been discussed at length with the patient. She understands and wishes to proceed. Job ID: [id number] DocumentID: [id number] Dictated Date: 08/22/2020 08:22:52 Adjunct Philosophy Faculty Date: 08/22/2020 09:41:49 Dictated By: MARIA DOLORES BECERRA MD
[2020-08-31] VITALS (11 sets, daily range): BP systolic 102–148; BP diastolic 64–75
[~2020-08-31] VITALS: Ht 162.6 cm; Wt 95.1 kg
[2020-08-31] MEDS ORDERED: INTRA-ARTICULAR IU ONE ×5 (08:45)
[2020-08-31] MEDS ORDERED: LIDOCAINE PF 2% 5 ML (XYLOCAINE) VIAL ONE ×2 (08:52→09:12)
[2020-08-31] MEDS ORDERED: SEVOFLURANE (ULTANE) 15 ML INHAL SOLN ONE (08:52)
[2020-08-31] MEDS ORDERED: fentaNYL INJ 100 MCG/2 ML AMP ONE ×2 (08:52→10:41)
[2020-08-31] MEDS ORDERED: ONDANSETRON 4 MG/2 ML (SDV) Z0FRAN ONE (08:52)
[2020-08-31] MEDS ORDERED: MIDAZOLAM 2 MG/2 ML (VERSED) VIAL ONE (08:52)
[2020-08-31] MEDS ORDERED: proPOfol 200 MG/20 ML (DIPRIVAN) VIAL IV ONE (08:52)
[2020-08-31] MEDS ORDERED: ROPIVACAINE 5MG/ML 30ML VIAL ONE (08:57)
[2020-08-31] MEDS ORDERED: CEFUROXIME INJECTION 1,500 MG in WATER (STERILE) FOR INJECTION 15 ML IV ONE (09:00)
[2020-08-31] MEDS: LACTATED RINGERS 1,000 ML IV PRN ×2 (09:39→10:35)
[2020-08-31] MEDS ORDERED: ROCURONIUM 10 MG/ML 5 ML SYRINGE IV ONE (09:46)
[2020-08-31] MEDS ORDERED: TRANEXAMIC ACID 100 MG/ML 10 ML INJECTION ONE (09:52)
--- NOTE | 2020-08-31 10:18 | Progress Note-Pre Operative ---
Pre-Operative Progress Note H&P Reviewed The H&P was reviewed, patient examined and no changes noted. Date Seen by Provider: Aug 31, 2020 Time Seen by Provider: 09:15 Date H&P Reviewed: Aug 31, 2020 Time H&P Reviewed: 07:11 Pre-Operative Diagnosis: left knee primary osteoarthritis MARIA DOLORES BECERRA MD Aug 31, 2020 10:18
--- NOTE | 2020-08-31 10:20 | Progress Note-Post Operative ---
Post-Operative Progess Note Surgeon (s)/Contact Center Assistant (s) Surgeon MARIA DOLORES BECERRA MD Contact Center Assistant: Yaneth Salazar Pre-Operative Diagnosis left knee primary osteoarthritis Post-Operative Diagnosis left knee primary osteoarthritis Procedure & Operative Findings Date of Procedure 08/31/20 Procedure Performed/Findings left total knee arthroplasty Anesthesia Type GETA Estimated Blood Loss Estimated blood loss (mL): minimal Specimens/Packing Specimens Removed none Packing: none MARIA DOLORES BECERRA MD Aug 31, 2020 10:20
--- NOTE | 2020-08-31 10:24 | D/C HH Face to Face Order ---
D/C Face to Face Orders Reconcile Patient Problems Problems Reviewed?: Yes Instructions for Patient Via [facility], Patient Instructions/FollowUp: three weeks Physician to follow Patient: three weeks Discharge Diet for Home: Regular Diet Patient Data-Allergies,Ht & Wt Patient Allergies: Coded Allergies: No Known Drug Allergies (Unverified , 01/14/19) Height (Feet): 5 Height (Inches): 4.00 Weight (Pounds): 198 Weight (Ounces): 0.0 Home Health Need/Face to Face Date of Face to Face: Aug 31, 2020 Clinical Findings: Instability, Muscle weakness, Pain with ambulation, Unsteady gait I have seen Pt [id number]: Yes Discharged To: Home Diagnosis/Conditions: left total knee arthroplasty Patient is Homebound due to: Janett fall risk due to instabilty, Muscle weakness, Pain w/ambulation Homebound Status Due to the above stated illness, injury or surgical procedure (medical condition or diagnosis) and associated clinical findings, the patient is homebound because of his/her inability to leave home except with aid of a supportive device and/or person AND leaving the home requires a considerable and taxing effort or is medically contraindicated. Pt req the following assistanc: Walker Home Health Nursing Orders Home Health Services Order: Physical Therapy-Evaluate & Treat DC left knee nafisa and apply steri strips 09/14/20 Therapy Orders Therapy Orders: Physical Therapy, PT to assess for OT Therapy Specific Orders: Eval assistive deivces, Teach strategies/cognitive deficits, Teach enviro modifications/safety, Gait training, Increase strength/endurance, Provider maintenance therapy, Restore ROM Certify Stmt I certify that this patient is under my care and that I, a nurse practitioner or a physician; a coding assistant working with me, had a face to face encounter that - meets the physician face to face encounter requirements with this patient as dated. MARIA DOLORES BECERRA MD Aug 31, 2020 10:24
[2020-08-31] MEDS ORDERED: NEOSTIGMINE 3 MG/3 ML VIAL ONE (11:26)
[2020-08-31] MEDS ORDERED: GLYCOPYRROLATE 0.2 MG/ML (ROBINUL) 2 ML VIAL ONE (11:26)
[2020-08-31] MEDS ORDERED: KETOROLAC 30 MG/ML VIAL ONE (11:27)
[2020-08-31] MEDS ORDERED: RT-ALBUTEROL SULF 2.5 MG/3 ML PRE-MIX VIAL ONE (11:56)
[2020-08-31] MEDS ORDERED: ONDANSETRON 4 MG/2 ML (SDV) Z0FRAN IVP PRN ×2 (12:00→15:00)
[2020-08-31] MEDS ORDERED: RT-ALBUTEROL SULF 2.5 MG/3 ML PRE-MIX VIAL INH ONE (12:00)
[2020-08-31] MEDS ORDERED: HYDROmorphone 2 MG/ML VIAL (DILAUDID) IV ONE (12:00)
--- NOTE | 2020-08-31 12:02 | Progress Note ---
Standard Progress Note Progress Notes/Assess & Plan Date Seen by a Provider: Aug 31, 2020 Time Seen by a Provider: 11:59 Progress/Assessment & Plan post op check no complaints LLE--2 plus DP pulse with brisk refill. Intact DF and PF of toes and ankle sensation intact to light touch throughout s/p LTKA mobilize as able MARIA DOLORES BECERRA MD Aug 31, 2020 12:02
[2020-08-31] MEDS ORDERED: HYDROmorphone 2 MG/ML VIAL (DILAUDID) ONE (12:04)
--- NOTE | 2020-08-31 14:06 | Physical Therapy Evaluation ---
PT Evaluation-General Medical Diagnosis Admission Date Aug 31, 2020 at 08:31 Medical Diagnosis: left TKA Onset Date: Aug 31, 2020 Therapy Diagnosis Therapy Diagnosis: impaired mobility, strength, endurance, ROM Height/Weight Height (Feet): 5 Height (Inches): 4.00 Weight (Pounds): 198 Weight (Ounces): 0.0 Weight Bear Status Left Lower Extremity: Left Weight Bearing/Tolerated Referral Physician: Martin Reason for Referral: Evaluation/Treatment Medical History Additional Medical History PAST MEDICAL HISTORY: Thyroid, COPD, headaches, lung disease, thyroid disease, depression, carpal tunnel syndrome, and arthritis. PAST SURGICAL HISTORY: Left shoulder scope C5-C7 fusion, trigger finger, left knee arthroscopy. Reviewed History: Yes Social History Home: Single Level Current Living Status: Alone (she says her brother lives close to her and can assist if needed) Entry Into Home: Level Entry Prior Prior Level of Function SCALE: Activities may be completed with or without assistive devices. 8-Zjwhisgvfu-bvthlrc completes the activity by him/herself with no assistance from a helper. 5-Set-up or Clean-up Assistance-helper sets up or cleans up; patient completes activity. [place] assists only prior to or following the activity. 4-Supervision or Touching Assistance-helper provides verbal cues and/or touching/steadying and/or contact guard assistance as patient completes activity. Assistance may be provided throughout the activity or intermittently. 3-Partial/Moderate Assistance-helper does LESS THAN HALF the effort. [place] lifts, holds or supports trunk or limbs, but provides less than half the effort. 2-Substantial/Maximal Assistance-helper does MORE THAN HALF the effort. [place] lifts or holds trunk or limbs and provides more than half the effort. 2-Uyoqtwzlq-cqpwuh does ALL the effort. Patient does none of the effort to complete the activity. Or, the assistance of 2 or more helpers is required for the patient to complete the activity. If activity was not attempted, code reason: 7-Patient Refused. 9-Not Applicable-not attempted and the patient did not perform the activity before the current illness, exacerbation or injury. 10-Not Attempted due to Environmental Limitations-(lack of equipment, weather restraints, etc.). 88-Not Attempted due to Medical Conditions or Safety Concerns. Bed Mobility: 6 Transfers (B,C,W/C): 6 Gait: 6 Indoor Mobility (Ambulation): Independent Prior Devices Use: Walker PT Evaluation-Current Subjective Patient in bed pre tx, agrees to PT, has no pain at rest but significant pain with activity. Pt/Family Goals to be independent at home Objective Patient Orientation: Person, Place, Situation Attachments: SCD's, Oxygen, Polar Pack, IV ROM/Strength ROM Lower Extremities left knee extension +5 degrees, flexion 75 degrees Sensory Vision: Functional Hearing: Functional Sensation Right Lower Extremit: Intact Sensation Left Lower Extremity: Intact Transfers Roll Left to Right (QC): 6 Sit to Lying (QC): 3 Lying to Sitting/Side of Bed(Q: 4 Sit to Stand (QC): 4 Patient needs assist with her left leg getting back into bed but not with supine to sit. Patient is able to stand with CGA and bear weight through her left leg without buckling. Gait Does the Patient Walk?: Yes Mode of Locomotion: Walk Anticipated Mode of Locomotion: Walk Walk 10 feet (QC): 4 Distance: 10' Gait Assistive Device: FWW Comments/Gait Description Patient is able to ambulate forward and back a few feet at a time several times for a total of about 10', left knee stays flexed but no buckling, antalgic Balance Sitting Static: Normal Sitting Dynamic: Normal Standing Static: Good Standing Dynamic: Good Treatment LLE TKA protocol x10 (AP, QS, HS, SAQ, SLR), CPM donned and set to 55/-2 and fit to leg. Assessment/Needs Patient in bed post tx with nurse call, phone, tray, SCD's on, O2 on, polar care on, CPM donned. Patient has impaired mobility, strength, endurance, ROM. Patient has not been in her room very long from recovery and performed well despite that. Rehab Potential: Fair PT Metal Alloy Scientist Goals Metal Alloy Scientist Goals PT Metal Alloy Scientist Goals Time Frame: Sep 07, 2020 Roll Left & Right (QC): 6 Sit to Lying (QC): 6 Lying-Sitting on Side/Bed(QC): 6 Sit to Stand (QC): 4 Chair/Gsb-za-Ptqcj Xfer(QC): 4 Walk 10 feet (QC): 4 Walk 50ft with 2 Turns (QC): 4 Walk 150 ft (QC): 4 1 Step (curb) (QC): 4 PT Plan Problem List Problem List: Activity Tolerance, Functional Strength, Safety, Balance, Gait, Transfer, Bed Mobility, ROM Treatment/Plan Treatment Plan: Continue Plan of Care Treatment Plan: Bed Mobility, Education, Functional Activity Brayan, Functional Strength, Gait, Safety, Therapeutic Exercise, Transfers Treatment Duration: Sep 07, 2020 Frequency: 11 times per week Estimated Hrs Per Day: .25 hour per day Patient and/or Family Agrees t: Yes Safety Risks/Education Patient Education: Gait Training, Transfer Techniques, Reviewed Use of Ice, Correct Positioning, Safety Issues Teaching Recipient: Patient Teaching Methods: Demonstration, Discussion Response to Teaching: Reinforcement Needed Discharge Recommendations Plan Patient will perform bed mobility and transfer training, balance and endurance training, functional strengthening, stair training, gait training, and education, to improve functional mobility and independence at home. Therapy Discharge Recommendati: Home & Family, Post Acute PT Time/GCodes Time In: 1324 Time Out: 1347 Total Billed Treatment Time: 23 Total Billed Treatment 1 visit EVL 15' EX 8' BRIDGETTE GAMBLE PT Aug 31, 2020 14:05
[2020-08-31] MEDS ORDERED: diphenhydrAMINE 50 MG/ML INJ (BENADRYL) IM PRN (15:00)
[2020-08-31] MEDS ORDERED: morphine PCA 100 MG/100 ML BAG IV PRN (15:00)
[2020-08-31] MEDS ORDERED: ASPIRIN E.C. 325 MG (ECOTRIN) TABLET PO ONE (15:00)
--- NOTE | 2020-08-31 15:21 | Diagnostic Imaging Report ---
EXAMINATION: Knee radiographs, 2 views. COMPARISON: None. HISTORY: 60-year-old female, left total knee replacement. FINDINGS: There is a left total knee prosthesis. The hardware is intact. There is no periprosthetic lucency. There are anterior skin nafisa. Soft tissue gas likely relates to the recent postoperative state of the patient. There is no identified acute fracture. IMPRESSION: Intact left total knee prosthesis without identified complication. Dictated by: Dictated on workstation # [id number]
[2020-08-31] MEDS: NS IV 1000 ML 1,000 ML IV SCH (15:45)
[2020-08-31] MEDS ORDERED: PATIENT MAY USE OWN MED,SINGLE MED PO SCH (16:15)
--- NOTE | 2020-08-31 17:51 | OPERATIVE REPORT ---
DATE OF SERVICE: 08/31/2020 PREOPERATIVE DIAGNOSIS: Left knee primary osteoarthritis. POSTOPERATIVE DIAGNOSIS: Left knee primary osteoarthritis. PROCEDURE: Left total knee arthroplasty. SURGEON: Real Becerra MD CHIEF INSPECTOR: Jeffry Salazar, who assisted throughout the procedure and closed the incision. ANESTHESIA: General endotracheal by Sarabjit Adorno CRNA. TOURNIQUET TIME: Approximately 65 minutes at 300 mmHg. ESTIMATED BLOOD LOSS: Minimal. DRAINS: None. COMPLICATIONS: None. POSTOPERATIVE PLAN: Routine protocol. The patient was transferred to the recovery room awake and in stable condition. STATEMENT OF MEDICAL NECESSITY: The patient is a 60-year-old female with longstanding progressive left knee pain. Radiographs revealed severe medial and patellofemoral arthrosis. She has undergone treatment with injections, anti-inflammatories and rest without relief and due to functional impairment and failure to improve with conservative measures, the patient elected to proceed with surgical intervention. DESCRIPTION OF PROCEDURE: After risks and benefits of procedure were discussed and questions were answered, an informed consent was signed and placed on chart, the operative site was confirmed in the preoperative holding area initialed by the surgeon. The patient was then transferred to the operating room and after adequate levels of general endotracheal anesthetic were obtained, a timeout was called, confirming the operative site. Left lower extremity was prepped and draped in the usual sterile fashion with the leg elevated and the knee flexed. Tourniquet was inflated to 300 mmHg. Standard anterior approach was utilized. Hemostasis was obtained with cautery. Medial parapatellar arthrotomy was performed leaving 1 cm cuff on the patella for later reattachment. A portion of the fat pad was resected. Subperiosteal release was performed in the proximal medial tibia being careful to stay on the bony surface. The ACL was resected. The intramedullary guide was passed into the femur and the distal cutting block was placed. Distal cut was made and the femur was sized to a size 4. The 4 cutting block was placed parallel to the epicondylar axis and cuts were made from posterior to anterior. A subperiosteal release was then carefully performed on the posterior distal femur, being careful to stay on the bony surface. The intramedullary guide was then passed into the tibia and the cutting block was placed. The drop robin transected the intermalleolar axis and the cut was made. The four baseplate provided excellent coverage. Drop robin transected the intermalleolar axis and cut. This was prepared with the drill and keel punch. The femoral trial was placed and trochlear cut was made. The patella was then prepared using the freehand technique by resecting 10 mm off the undersurface. The peg hole guide was placed and peg holes were drilled. The 32 trial was placed with 10 mm insert on the tibia. The knee was taken through range of motion. Full extension was easily obtained, 120 degrees of flexion with gravity was easily obtained. Patella tracked well. There was no anterior/posterior or medial/lateral laxity in flexion or extension. The trials were removed. The joint was irrigated with pulse lavage. The periarticular block was placed in the posterior capsule, medial and lateral retinaculum extensor mechanism, subcutaneous tissues. The bone ends were then irrigated and dried and the tibial baseplate was cemented into position. Excessive cement was removed, the superior surface was irrigated and dried. The polyethylene insert was placed. Distal femur was irrigated and dried and the femoral prosthesis was cemented into position. Excessive cement was removed. The knee was brought out into full extension until the cement had cured. The undersurface of the patella was irrigated and dried and the patellar button was cemented into position. Once the cemented had cured, the knee was taken through a range of motion. Full extension was easily obtained, 120 degrees of flexion with gravity was easily obtained. There was no anterior/posterior or medial/lateral laxity in flexion or extension. The patella tracked well. The joint was further irrigated with pulse lavage. The arthrotomy was closed with #2 Tevdek in nxpiij-bf-szysb interrupted fashion. The knee was flexed. The patella tracked well. There was no correction noted at the repair site. Subcutaneous tissues were irrigated and 6 liters of pulse lavage were used throughout the procedure. A 0 Vicryl was used for deep subcutaneous layer, 2-0 Vicryl for the superficial subcutaneous layer, nafisa used on the skin. A soft dressing was applied. The tourniquet was deflated and the patient was transferred to the recovery room awake and in stable condition. Job ID: [id number] DocumentID: [id number] Dictated Date: 08/31/2020 12:01:47 Oracle Forms Developer Date: 08/31/2020 17:51:16 Dictated By: REAL BECERRA MD
[2020-08-31] MEDS: SENNA W/DOCUSATE (SENOKOT S) TABLET PO SCH (21:02)
[2020-08-31] MEDS: CEFUROXIME INJECTION 750 MG in WATER (STERILE) FOR INJECTION 10 ML IV SCH (23:34)
[2020-09-01 00:27] VITALS: BP 105/69
[2020-09-01] MEDS: NS IV 1000 ML 1,000 ML IV SCH ×2 (03:36→16:02)
[2020-09-01 04:19] VITALS: BP 124/71
[2020-09-01] MEDS: MULTIVIT W/MINERALS TAB (THERAGRAN M) PO SCH (05:52)
[2020-09-01] MEDS: CEFUROXIME INJECTION 750 MG in WATER (STERILE) FOR INJECTION 10 ML IV SCH (05:52)
--- NOTE | 2020-09-01 05:53 | Consultation - Hospitalist ---
HPI History of Present Illness: HPI/Chief Complaint Chief complaint: Left knee replacement History of present illness: This is a 60-year-old white female clinic patient of [facility] who is currently status post an uncomplicated left total knee replacement. Pain is well controlled currently. She does smoke and we talked about cessation. Labs drawn today appear to be stable. Source: patient, family, RN/MD Exam Limitations: no limitations Date Seen 09/01/20 Attending Physician Real Rahman MD PCP [facility] Referring Physician Date of Admission Aug 31, 2020 at 08:31 Home Medications & Allergies Home Medications Reviewed patient Home Medication Reconciliation performed by pharmacy medication reconciliations audio visual technician and/or nursing. Patients Allergies have been reviewed. Allergies Allergies Coded Allergies No Known Drug Allergies ([id number]/30/19) Past Rzamgot-Kykiha-Cazbpo Hx Patient Social History Marrital Status: Employed/Student: unemployed Tobacco Use?: Yes Tobacco type used: Cigarettes Smoking Status: Current Everyday Smoker Substance use?: No Alcohol Use?: No Pt feels they are or have been: No Immunizations Up To Date Date of Influenza Vaccine: Apr 18, 2020 Seasonal Allergies Seasonal Allergies: Yes Current Status Advance Directives: No Communicates: Verbally Primary Language: Mexican Preferred Spoken Language: Mexican Is interpretation needed?: No Sensory deficits: Vision impairment Past Medical History Surgeries: Orthopedic COPD Currently Using CPAP: No Currently Using BIPAP: No Neuropathy Sexually Transmitted Disease: No HIV/AIDS: No Gastroesophageal Reflux Arthritis, Chronic Back Pain Loss of Vision: Denies Hearing Impairment: Denies Anxiety, Depression Blood Disorders: No Adverse Reaction/Blood Tranf: No (N/A) Family Medical History Alzheimer's disease Arthritis Asthma Cardiovascular disease Completed stroke Dementia Diabetes mellitus Hypertension Myocardial infarction Osteoporosis Psychosocial problem Respiratory disorder Thyroid disease Visual disorder Review of Systems Constitutional: see HPI Musculoskeletal: joint pain Physical Exam Physical Exam Vital Signs Vital Signs - First Documented 08/31/20 08:34 Temp 36.7 Pulse 90 Resp 18 B/P (MAP) 128/75 (92) Pulse Ox 93 O2 Delivery Room Air Capillary Refill : Less Than 3 Seconds Height, Weight, BMI Height: 5'4.00" Weight: 198lbs. 0.0oz. [id number]; 35.96 BMI Method: General Appearance: No Apparent Distress, WD/WN, Chronically ill Eyes: Bilateral Eye Normal Inspection, Bilateral Eye PERRL HEENT: PERRL/EOMI, Normal ENT Inspection, Pharynx Normal Neck: Full Range of Motion, Normal Inspection, Non Tender, Supple, Carotid Bruit Respiratory: Chest Non Tender, Lungs Clear, Normal Breath Sounds, No Accessory Muscle Use, No Respiratory Distress Cardiovascular: Regular Rate, Rhythm, No Edema, No Gallop, No JVD, No Murmur, Normal Peripheral Pulses Gastrointestinal: Normal Bowel Sounds, No Organomegaly, No Pulsatile Mass, Non Tender, Soft Back: Normal Inspection, No CVA Tenderness, No Vertebral Tenderness Extremity: Normal Capillary Refill, Normal Inspection, Normal Range of Motion (Decreased range of motion left leg), Non Tender, No Calf Tenderness, No Pedal Edema Neurologic/Psychiatric: Alert, Oriented x3, No Motor/Sensory Deficits, Normal Mood/Affect Skin: Normal Color, Warm/Dry Lymphatic: No Adenopathy Results Results/Procedures Labs Laboratory Tests 09/01/20 07:20 Patient resulted labs reviewed. Assessment/Plan Assessment and Plan Assess & Plan/Chief Complaint Assessment: Left knee replacement COPD Current smoker Neuropathy Plan: I-S use Pain control EMELY CAMPBELL DO Sep 01, 2020 05:53
[2020-09-01 07:28] LABS: BASOPHILS % (AUTO) 0 % (0-10); EOSINOPHILS % (AUTO) 0 % (0-10); HEMATOCRIT 37 % (35-52); HEMOGLOBIN 11.6 g/dL (11.5-16.0); LYMPHOCYTES % (AUTO) 9 % (12-44); MEAN CORPUSCULAR HEMOGLOBIN 25 pg (25-34); MEAN CORPUSCULAR HGB CONC 31 g/dL (32-36); MEAN CORPUSCULAR VOLUME 80 fL (80-99); MEAN PLATELET VOLUME 10.1 fL (9.0-12.2); MONOCYTES # (AUTO) 1.5 10^3/uL (0.0-1.0); MONOCYTES % (AUTO) 7 % (0-12); NEUTROPHILS # (AUTO) 18.4 10^3/uL (1.8-7.8); NEUTROPHILS % (AUTO) 84 % (42-75); PLATELET COUNT 282 10^3/uL (130-400); WHITE BLOOD COUNT 22.1 10^3/uL (4.3-11.0)
[2020-09-01 07:48] LABS: ALANINE AMINOTRANSFERASE 19 U/L (0-55); ALBUMIN 3.7 GM/DL (3.2-4.5); ALKALINE PHOSPHATASE 68 U/L (40-136); BILIRUBIN,TOTAL 0.3 MG/DL (0.1-1.0); BUN/CREATININE RATIO 13; CALCIUM 8.8 MG/DL (8.5-10.1); CARBON DIOXIDE 27 MMOL/L (21-32); CHLORIDE 100 MMOL/L (98-107); CREATININE SERUM 0.62 MG/DL (0.60-1.30); GFR ESTIMATED > 60; GLUCOSE 109 MG/DL (70-105); POTASSIUM 4.3 MMOL/L (3.6-5.0); SODIUM 134 MMOL/L (135-145); TOTAL PROTEIN 6.8 GM/DL (6.4-8.2)
[2020-09-01 07:50] LABS: BAND NEUTROPHILS 0 %; BASOPHILS % (MANUAL) 0 %; EOSINOPHILS % (MANUAL) 0 %; LYMPHOCYTES % (MANUAL) 7 %; MONOCYTES % (MANUAL) 7 %; NEUTROPHILS % (MANUAL) 86 %
[2020-09-01 07:51] LABS: ANISOCYTOSIS MODERATE
--- NOTE | 2020-09-01 08:03 | Progress Note ---
Standard Progress Note Progress Notes/Assess & Plan Date Seen by a Provider: Sep 01, 2020 Time Seen by a Provider: 08:02 Progress/Assessment & Plan post op check no complaints LLE--2 plus DP pulse with brisk refill. Intact DF and PF of toes and ankle sensation intact to light touch throughout s/p LTKA mobilize as able Final Diagnosis no complaints Vital Signs Date Time Temp Pulse Resp B/P (MAP) Pulse Ox O2 Delivery O2 Flow Rate FiO2 09/01/20 04:19 36.2 79 17 124/71 (88) 94 Nasal Cannula 3.00 09/01/20 00:27 36.2 74 17 105/69 (81) 94 Nasal Cannula 3.00 08/31/20 21:00 95 Nasal Cannula 3.00 08/31/20 20:00 36.4 74 17 102/66 (78) 94 Nasal Cannula 3.00 08/31/20 19:34 91 Nasal Cannula 4.00 08/31/20 18:00 18 08/31/20 16:00 35.8 76 18 111/72 (85) 96 Nasal Cannula 3.00 08/31/20 15:15 91 Nasal Cannula 4.00 08/31/20 12:57 35.7 81 18 128/67 (87) 96 Nasal Cannula 5.00 08/31/20 12:55 36.2 20 119/74 (89) 92 Nasal Cannula 5 08/31/20 12:55 Nasal Cannula 5 08/31/20 12:55 96 Nasal Cannula 5.00 08/31/20 12:45 Nasal Cannula 5 08/31/20 12:40 20 119/72 (88) 92 Nasal Cannula 5 08/31/20 12:30 20 127/70 (89) 93 OxyMask 5 08/31/20 12:30 OxyMask 5 08/31/20 12:20 20 119/72 (88) 95 OxyMask 10 08/31/20 12:15 OxyMask 10 08/31/20 12:10 20 110/65 (80) 96 OxyMask 10 08/31/20 12:00 20 105/64 (78) 96 OxyMask 10 08/31/20 12:00 OxyMask 10 08/31/20 11:50 OxyMask 10 08/31/20 11:50 36.2 12 148/74 (98) 93 OxyMask 10 08/31/20 08:34 36.7 90 18 128/75 (92) 93 Room Air 08/31/20 08:34 93 Room Air I & O 09/01/20 07:00 Intake Total 2505 ml Output Total 1600 ml Balance 905 ml Laboratory Tests Test 09/01/20 07:20 Range/Units White Blood Count 22.1 H 4.3-11.0 10^3/uL Red Blood Count 4.61 3.80-5.11 10^6/uL Hemoglobin 11.6 11.5-16.0 g/dL Hematocrit 37 35-52 % Mean Corpuscular Volume 80 80-99 fL Mean Corpuscular Hemoglobin 25 25-34 pg Mean Corpuscular Hemoglobin Concent 31 L 32-36 g/dL Red Cell Distribution Width 20.5 H 10.0-14.5 % Platelet Count 282 130-400 10^3/uL Mean Platelet Volume 10.1 9.0-12.2 fL Immature Granulocyte % (Auto) 1 % Neutrophils (%) (Auto) 84 H 42-75 % Lymphocytes (%) (Auto) 9 L 12-44 % Monocytes (%) (Auto) 7 0-12 % Eosinophils (%) (Auto) 0 0-10 % Basophils (%) (Auto) 0 0-10 % Neutrophils # (Auto) 18.4 H 1.8-7.8 10^3/uL Lymphocytes # (Auto) 2.0 1.0-4.0 10^3/uL Monocytes # (Auto) 1.5 H 0.0-1.0 10^3/uL Eosinophils # (Auto) 0.0 0.0-0.3 10^3/uL Basophils # (Auto) 0.0 0.0-0.1 10^3/uL Immature Granulocyte # (Auto) 0.1 0.0-0.1 10^3/uL Neutrophils % (Manual) 86 % Lymphocytes % (Manual) 7 % Monocytes % (Manual) 7 % Eosinophils % (Manual) 0 % Basophils % (Manual) 0 % Band Neutrophils 0 % Anisocytosis MODERATE Sodium Level 134 L 135-145 MMOL/L Potassium Level 4.3 3.6-5.0 MMOL/L Chloride Level 100 98-107 MMOL/L Carbon Dioxide Level 27 21-32 MMOL/L Anion Gap 7 5-14 MMOL/L Blood Urea Nitrogen 8 7-18 MG/DL Creatinine 0.62 0.60-1.30 MG/DL Estimat Glomerular Filtration Rate > 60 BUN/Creatinine Ratio 13 Glucose Level 109 H 70-105 MG/DL Calcium Level 8.8 8.5-10.1 MG/DL Corrected Calcium 9.0 8.5-10.1 MG/DL Total Bilirubin 0.3 0.1-1.0 MG/DL Aspartate Amino Transf (AST/SGOT) 16 5-34 U/L Alanine Aminotransferase (ALT/SGPT) 19 0-55 U/L Alkaline Phosphatase 68 40-136 U/L Total Protein 6.8 6.4-8.2 GM/DL Albumin 3.7 3.2-4.5 GM/DL LLE--dressing intact. No calf tendernes. Neg Uriah's s/p MITA PT/OT MARIA DOLORES BECERRA MD Sep 01, 2020 08:03
[2020-09-01 08:12] VITALS: BP 123/68
[2020-09-01] MEDS: SENNA W/DOCUSATE (SENOKOT S) TABLET PO SCH ×2 (08:37→20:32)
[2020-09-01] MEDS: ENOXAPARIN 30 MG/0.3 ML (LOVENOX) SYR SC SCH ×2 (08:37→20:32)
[2020-09-01] MEDS: ASPIRIN 81 MG CHEW (CHILDREN'S ASA) PO SCH (08:37)
--- NOTE | 2020-09-01 08:57 | Anesthesia-General Post-Op ---
General Patient Condition Mental Status/LOC: Same as Preop Cardiovascular: Satisfactory Nausea/Vomiting: Absent Respiratory: Satisfactory Pain: Controlled Complications: Absent Post Op Complications Complications None Follow Up Care/Instructions Patient Instructions None needed. Anesthesia/Patient Condition Patient Condition Patient is doing well, no complaints, stable vital signs, no apparent adverse anesthesia problems. No complications reported per nursing. D/C home per [facility] Criteria: SUMIT Kurtz LUNCHEONETTE MANAGER Sep 01, 2020 08:57
[2020-09-01] MEDS ORDERED: ASPIRIN E.C. 81 MG (ECOTRIN) TAB PO SCH (09:00)
[2020-09-01] MEDS: oxyCODONE/APAP 5/325MG (PERCOCET 5) TABLET PO PRN ×5 (09:19→20:32)
--- NOTE | 2020-09-01 10:02 | Physical Therapy Daily Note ---
PT Daily Note-Current Subjective Patient agrees to PT. Pain Numeric Pain Scale: 5-Moderate Pain Location: Left Location Body Site: Knee Pain Description: Acute Mental Status Patient Orientation: Normal For Age Attachments: Polar Pack, IV Transfers SCALE: Activities may be completed with or without assistive devices. 2-Rlptswzekr-letvowk completes the activity by him/herself with no assistance from a helper. 5-Set-up or Clean-up Assistance-helper sets up or cleans up; patient completes activity. [place] assists only prior to or following the activity. 4-Supervision or Touching Assistance-helper provides verbal cues and/or touching/steadying and/or contact guard assistance as patient completes activity. Assistance may be provided throughout the activity or intermittently. 3-Partial/Moderate Assistance-helper does LESS THAN HALF the effort. [place] lifts, holds or supports trunk or limbs, but provides less than half the effort. 2-Substantial/Maximal Assistance-helper does MORE THAN HALF the effort. [place] lifts or holds trunk or limbs and provides more than half the effort. 2-Meyiqhjwc-ecbntj does ALL the effort. Patient does none of the effort to complete the activity. Or, the assistance of 2 or more helpers is required for the patient to complete the activity. If activity was not attempted, code reason: 7-Patient Refused. 9-Not Applicable-not attempted and the patient did not perform the activity before the current illness, exacerbation or injury. 10-Not Attempted due to Environmental Limitations-(lack of equipment, weather restraints, etc.). 88-Not Attempted due to Medical Conditions or Safety Concerns. Lying to Sitting/Side of Bed(Q: 6 Sit to Stand (QC): 4 Chair/Sqq-pi-Shihn Xfer(QC): 4 Toilet Transfer (QC): 4 SBA with upright activities Weight Bearing Left Lower Extremity: Left Weight Bearing/Tolerated Gait Training Does the Patient Walk?: Yes Distance: 250' Walk 10 feet (QC): 4 (SBA) Walk 50 ft with 2 Turns(QC): 4 (SBA) Walk 150 ft (QC): 4 (SBA) Gait Assistive Device: FWW functional gait sequence Exercises Supine Ex: Ankle pumps, Quad Set, Heel Slides, Straight leg raise Supine Reps: 15 Seated Therapy Exercises: Long arc quads Seated Reps: 15 Assessment Patient up in recliner after session. Increase activity as tolerated by patient. ROM left knee improving PT Longterm Goals Longterm Goals PT Floorworker Goals Time Frame: Sep 07, 2020 Roll Left & Right (QC): 6 Sit to Lying (QC): 6 Lying-Sitting on Side/Bed(QC): 6 Sit to Stand (QC): 4 Chair/Tqn-ek-Okkgp Xfer(QC): 4 Walk 10 feet (QC): 4 Walk 50ft with 2 Turns (QC): 4 Walk 150 ft (QC): 4 1 Step (curb) (QC): 4 PT Plan Treatment/Plan Treatment Plan: Continue Plan of Care Treatment Plan: Bed Mobility, Education, Functional Activity Brayan, Functional Strength, Gait, Safety, Therapeutic Exercise, Transfers Treatment Duration: Sep 07, 2020 Frequency: 11 times per week Estimated Hrs Per Day: .25 hour per day Patient and/or Family Agrees t: Yes Time/GCodes Time In: 856 Time Out: 919 Total Billed Treatment Time: 23 Total Billed Treatment 1 visit EX 12 min GT 11 min VIN KURTZ PT Sep 01, 2020 10:02
--- NOTE | 2020-09-01 11:43 | Physical Therapy Daily Note ---
PT Daily Note-Current Subjective Patient agrees to PT. Pain Numeric Pain Scale: 5-Moderate Pain Location: Left Location Body Site: Knee Pain Description: Acute Mental Status Patient Orientation: Normal For Age Attachments: IV Transfers SCALE: Activities may be completed with or without assistive devices. 8-Fkalvlqfam-hqyytmw completes the activity by him/herself with no assistance from a helper. 5-Set-up or Clean-up Assistance-helper sets up or cleans up; patient completes activity. [place] assists only prior to or following the activity. 4-Supervision or Touching Assistance-helper provides verbal cues and/or touching/steadying and/or contact guard assistance as patient completes activity. Assistance may be provided throughout the activity or intermittently. 3-Partial/Moderate Assistance-helper does LESS THAN HALF the effort. [place] lifts, holds or supports trunk or limbs, but provides less than half the effort. 2-Substantial/Maximal Assistance-helper does MORE THAN HALF the effort. [place] lifts or holds trunk or limbs and provides more than half the effort. 4-Aqbdmpilp-tfrwdv does ALL the effort. Patient does none of the effort to complete the activity. Or, the assistance of 2 or more helpers is required for the patient to complete the activity. If activity was not attempted, code reason: 7-Patient Refused. 9-Not Applicable-not attempted and the patient did not perform the activity before the current illness, exacerbation or injury. 10-Not Attempted due to Environmental Limitations-(lack of equipment, weather restraints, etc.). 88-Not Attempted due to Medical Conditions or Safety Concerns. Sit to Stand (QC): 4 Weight Bearing Left Lower Extremity: Left Weight Bearing/Tolerated Gait Training Does the Patient Walk?: Yes Distance: 400' Walk 10 feet (QC): 4 Walk 50 ft with 2 Turns(QC): 4 Walk 150 ft (QC): 4 Gait Assistive Device: FWW steady, functional gait sequence/antalgic Exercises Seated Therapy Exercises: Ankle pumps, Long arc quads, Hip flexion Seated Reps: 12 Standing: Heel/toe raises, Marching Standing Reps: 12 Assessment Patient improving with treatment plan and will dismiss to home tomorrow after therapy. PT Animal Care Attendant Goals Animal Care Attendant Goals PT Correction Goals Time Frame: Sep 07, 2020 Roll Left & Right (QC): 6 Sit to Lying (QC): 6 Lying-Sitting on Side/Bed(QC): 6 Sit to Stand (QC): 4 Chair/Zvc-bi-Xeqox Xfer(QC): 4 Walk 10 feet (QC): 4 Walk 50ft with 2 Turns (QC): 4 Walk 150 ft (QC): 4 1 Step (curb) (QC): 4 PT Plan Treatment/Plan Treatment Plan: Continue Plan of Care Treatment Plan: Bed Mobility, Education, Functional Activity Brayan, Functional Strength, Gait, Safety, Therapeutic Exercise, Transfers Treatment Duration: Sep 07, 2020 Frequency: 11 times per week Estimated Hrs Per Day: .25 hour per day Patient and/or Family Agrees t: Yes Time/GCodes Time In: 1110 Time Out: 1133 Total Billed Treatment Time: 23 Total Billed Treatment 1 visit EX 10 min GT 13 min VIN KURTZ PT Sep 01, 2020 11:43
[2020-09-01 12:05] VITALS: BP 97/65
--- NOTE | 2020-09-01 13:08 | Occupational Therapy Eval ---
OT Evaluation-General/PLF Medical Diagnosis Admission Date Aug 31, 2020 at 08:31 Medical Diagnosis: left TKA Onset Date: Aug 31, 2020 Therapy Diagnosis Therapy Diagnosis: decreased ADL Status Height/Weight Height (Feet): 5 Height (Inches): 4.00 Weight (Pounds): 198 Weight (Ounces): 0.0 Precautions Precautions/Isolations: Fall Prevention, Standard Precautions Referral Physician: Martin Referral Reason: Evaluation/Treatment Social History Home: Single Level Current Living Status: Alone (she says her brother lives close to her and can assist if needed) Entry Into Home: Level Entry ADL-Prior Level of Function SCALE: Activities may be completed with or without assistive devices. 6-Madmjervkw-nzvmmru completes the activity by him/herself with no assistance from a helper. 5-Set-up or Clean-up Assistance-helper sets up or cleans up; patient completes activity. [place] assists only prior to or following the activity. 4-Supervision or Touching Assistance-helper provides verbal cues and/or touching/steadying and/or contact guard assistance as patient completes activity. Assistance may be provided throughout the activity or intermittently. 3-Partial/Moderate Assistance-helper does LESS THAN HALF the effort. [place] lifts, holds or supports trunk or limbs, but provides less than half the effort. 2-Substantial/Maximal Assistance-helper does MORE THAN HALF the effort. [place] lifts or holds trunk or limbs and provides more than half the effort. 0-Rngxoihsd-hxzddb does ALL the effort. Patient does none of the effort to complete the activity. Or, the assistance of 2 or more helpers is required for the patient to complete the activity. If activity was not attempted, code reason: 7-Patient Refused. 9-Not Applicable-not attempted and the patient did not perform the activity before the current illness, exacerbation or injury. 10-Not Attempted due to Environmental Limitations-(lack of equipment, weather restraints, etc.). 88-Not Attempted due to Medical Conditions or Safety Concerns. ADL PLOF Comments Pt reports being IND with bathing, dressing, and toileting at [facility], has assistance with cooking and cleaning. She has a 4WW she was using for functional mobility, but also has FWW. She has a tub/shower, does not own a SC but indicates she has an outside chair "rigged up" in her bathtub. Self Care: Independent Functional Cognition: Independent DME/Equipment: Tub/Shower OT Current Status Subjective Pt seated in recliner, agreeable to OT Tx. Pt did not report pain during session Mental Status/Objective Patient Orientation: Person, Place, Time, Situation Attachments: IV, Polar Pack Current Glasses/Contacts: Yes Hand Dominance: Right Upper Extremity ROM WFL Upper Extremity Coordination WFL Upper Extremity Sensation WFL, pt denies tingling/numbness Upper Extremity Strength grossly 3+/5 ADL-Treatment Eating (QC): 6 (Per pt report, IND with using utensils and opening containers) Oral Hygiene (QC): 5 (set up per report) Upper Body Dressing (QC): 5 (based on clincial judgement.) Toileting Hygiene (QC): 3 (Per pt report, she is able to complete hygiene, occassionally requires assist for thoroughness) Other Treatments Pt seated in recliner, agreeable to OT tx. OT educated pt on purpose and benefit of OT, she verbalized understanding. Pt provided information about PLOF and home set up, and participated in UE screen. Pt's brother present during tx. Pt states her brother is planning on assisting her when she returns home and will stay with her for a while (he typically lives next door). Pt indicates she has "rigged up" an outside chair to use in her bathtub. OT educated pt on safety concerns wtih her set up, educating her on bath bench vs chair. Pt denies need to toilet at this time, but provides information about assistance level required when she does go to the bathroom. OT educated pt on OT POC while she is admitted, she verbalized understanding. Post tx, pt seated in recliner, call light in reach and all needs met. Education OT Patient Education: Correct positioning, Modified ADL techniques, Progress toward Goal/Update tx plan, Purpose of tx/functional activities, Rehab process, Safety issues Teaching Recipient: Patient Teaching Methods: Discussion Response to Teaching: Verbalize Understanding OT Cellophane Press Operator Goals Cellophane Press Operator Goals Time Frame: Sep 09, 2020 Eating (QC): 6 Oral Hygiene (QC): 6 Toileting Hygiene (QC): 6 Shower/Bathe Self (QC): 4 Upper Body Dressing (QC): 5 Lower Body Dressing (QC): 4 On/Off Footwear (QC): 4 Additional Goals: 1-Demonstrate ADL Tasks, 2-Verbalize Understanding, 3- ImproveStrength/Brayan 1=Demonstrate adherence to instructed precautions during ADL tasks. 2=Patient will verbalize/demonstrate understanding of assistive devices/modifications for ADL. 3=Patient will improve strength/tolerance for activity to enable patient to perform ADL's. OT Education/Plan Problem List/Assessment Assessment: Decreased Activ Tolerance, Decreased UE Strength, Impaired I ADL's, Impaired Self-Care Skills Pt would benefit from short term skilled OT services in order to address pt's concerns with completing ADLs upon discharge, and in order to increase safety and independence with ADLs to maximize LOF for safe return home. Discharge Recommendations Plan/Recommendations: Continue POC Equpiment Recommendations-D/C: Extended Bath Bench (vs bath chair) Treatment Plan/Plan of Care Patient would benefit from OT for education, treatment and training to promote independence in ADL's, mobility, safety and/or upper extremity function for ADL's. Plan of Care: ADL Retraining, Functional Mobility, UE Funct Exercise/Act Treatment Duration: Sep 09, 2020 Frequency: 5 times per week Estimated Hrs Per Day: .25 hour per day Rehab Potential: Fair Time/GCodes Start Time: 11:45 Stop Time: 11:56 Total Time Billed (hr/min): 11 Billed Treatment Time 1, CHRIS PRINCE OT Sep 01, 2020 13:08
[2020-09-01 15:50] VITALS: BP 148/84
[2020-09-01 20:15] VITALS: BP 151/82
[2020-09-02 00:23] VITALS: BP 155/95
[2020-09-02] MEDS: oxyCODONE/APAP 5/325MG (PERCOCET 5) TABLET PO PRN ×2 (03:12→08:55)
[2020-09-02] MEDS: MULTIVIT W/MINERALS TAB (THERAGRAN M) PO SCH (04:17)
[2020-09-02] MEDS: NS IV 1000 ML 1,000 ML IV SCH (04:17)
[2020-09-02 04:20] VITALS: BP 169/83
--- NOTE | 2020-09-02 04:48 | DISCHARGE SUMMARY ---
DATE OF SERVICE: DIAGNOSES: 1. Left knee primary osteoarthritis. 2. Hypothyroidism. 3. Chronic obstructive pulmonary disease. 4. Depression. PROCEDURE: Left total knee arthroplasty. SUMMARY: The patient is a 60-year-old female who was admitted the day of left total knee arthroplasty, which she underwent without complications. Postoperatively, she did well. At time of discharge, her wound was clean and dry. She had no calf tenderness, negative Homans sign. CONDITION AT DISCHARGE: Good. DISCHARGE DIET: Regular. FOLLOWUP: Followup is in three weeks. Home physical therapy will be arranged. ACTIVITIES: Weightbearing as tolerated with a walker. DISCHARGE MEDICATIONS: Home medications plus aspirin, one aspirin per day for 30 days and Percocet as needed for pain. Job ID: [id number] DocumentID: [id number] Dictated Date: 09/01/2020 19:18:39 Building Tech Date: 09/02/2020 04:47:44 Dictated By: MARIA DOLORES BECERRA MD
[2020-09-02] MEDS ORDERED: morphine INJ 4 MG/ML 1 ML (VIAL/SYRINGE) IVP PRN (07:00)
--- NOTE | 2020-09-02 07:00 | Progress Note ---
Standard Progress Note Progress Notes/Assess & Plan Date Seen by a Provider: Sep 02, 2020 Time Seen by a Provider: 06:58 Progress/Assessment & Plan post op check no complaints LLE--2 plus DP pulse with brisk refill. Intact DF and PF of toes and ankle sensation intact to light touch throughout s/p LTKA mobilize as able Final Diagnosis no complaints Vital Signs Date Time Temp Pulse Resp B/P (MAP) Pulse Ox O2 Delivery O2 Flow Rate FiO2 09/02/20 04:20 36.1 90 20 169/83 (111) 95 Nasal Cannula 3.00 09/02/20 00:23 36.0 86 20 155/95 (115) 94 Nasal Cannula 3.00 09/01/20 21:41 Room Air 09/01/20 21:38 18 09/01/20 20:15 36.3 83 20 151/82 (105) 93 Room Air 09/01/20 15:50 36.5 83 20 148/84 (105) 90 Room Air 09/01/20 12:05 36.8 76 20 97/65 (76) 96 Room Air 09/01/20 09:00 Room Air 09/01/20 08:12 36.5 80 20 123/68 (86) 94 Nasal Cannula 3.00 I & O 09/02/20 07:00 Intake Total 3175 ml Output Total 2400 ml Balance 775 ml Laboratory Tests Test 09/01/20 07:20 Range/Units White Blood Count 22.1 H 4.3-11.0 10^3/uL Red Blood Count 4.61 3.80-5.11 10^6/uL Hemoglobin 11.6 11.5-16.0 g/dL Hematocrit 37 35-52 % Mean Corpuscular Volume 80 80-99 fL Mean Corpuscular Hemoglobin 25 25-34 pg Mean Corpuscular Hemoglobin Concent 31 L 32-36 g/dL Red Cell Distribution Width 20.5 H 10.0-14.5 % Platelet Count 282 130-400 10^3/uL Mean Platelet Volume 10.1 9.0-12.2 fL Immature Granulocyte % (Auto) 1 % Neutrophils (%) (Auto) 84 H 42-75 % Lymphocytes (%) (Auto) 9 L 12-44 % Monocytes (%) (Auto) 7 0-12 % Eosinophils (%) (Auto) 0 0-10 % Basophils (%) (Auto) 0 0-10 % Neutrophils # (Auto) 18.4 H 1.8-7.8 10^3/uL Lymphocytes # (Auto) 2.0 1.0-4.0 10^3/uL Monocytes # (Auto) 1.5 H 0.0-1.0 10^3/uL Eosinophils # (Auto) 0.0 0.0-0.3 10^3/uL Basophils # (Auto) 0.0 0.0-0.1 10^3/uL Immature Granulocyte # (Auto) 0.1 0.0-0.1 10^3/uL Neutrophils % (Manual) 86 % Lymphocytes % (Manual) 7 % Monocytes % (Manual) 7 % Eosinophils % (Manual) 0 % Basophils % (Manual) 0 % Band Neutrophils 0 % Anisocytosis MODERATE Sodium Level 134 L 135-145 MMOL/L Potassium Level 4.3 3.6-5.0 MMOL/L Chloride Level 100 98-107 MMOL/L Carbon Dioxide Level 27 21-32 MMOL/L Anion Gap 7 5-14 MMOL/L Blood Urea Nitrogen 8 7-18 MG/DL Creatinine 0.62 0.60-1.30 MG/DL Estimat Glomerular Filtration Rate > 60 BUN/Creatinine Ratio 13 Glucose Level 109 H 70-105 MG/DL Calcium Level 8.8 8.5-10.1 MG/DL Corrected Calcium 9.0 8.5-10.1 MG/DL Total Bilirubin 0.3 0.1-1.0 MG/DL Aspartate Amino Transf (AST/SGOT) 16 5-34 U/L Alanine Aminotransferase (ALT/SGPT) 19 0-55 U/L Alkaline Phosphatase 68 40-136 U/L Total Protein 6.8 6.4-8.2 GM/DL Albumin 3.7 3.2-4.5 GM/DL LLE--incision clean and dry. No calf tenderness. Neg Yeni. SLR with assistance s/p MITA doing well [facility] MARIA DOLORES BECERRA MD Sep 02, 2020 07:00
[2020-09-02 07:50] VITALS: BP 163/79
[2020-09-02] MEDS: SENNA W/DOCUSATE (SENOKOT S) TABLET PO SCH (08:55)
[2020-09-02] MEDS: ENOXAPARIN 30 MG/0.3 ML (LOVENOX) SYR SC SCH (08:56)
[2020-09-02] MEDS: ASPIRIN 81 MG CHEW (CHILDREN'S ASA) PO SCH (08:56)
--- NOTE | 2020-09-02 09:38 | Physical Therapy Daily Note ---
PT Daily Note-Current Subjective Patient agrees to PT. Pain Numeric Pain Scale: 7 Location: Left Location Body Site: Knee Pain Description: Acute Mental Status Patient Orientation: Normal For Age Transfers SCALE: Activities may be completed with or without assistive devices. 0-Vxmulnyaoy-jjdbikd completes the activity by him/herself with no assistance from a helper. 5-Set-up or Clean-up Assistance-helper sets up or cleans up; patient completes activity. [place] assists only prior to or following the activity. 4-Supervision or Touching Assistance-helper provides verbal cues and/or touching/steadying and/or contact guard assistance as patient completes activity . Assistance may be provided throughout the activity or intermittently. 3-Partial/Moderate Assistance-helper does LESS THAN HALF the effort. [place] lifts, holds or supports trunk or limbs, but provides less than half the effort. 2-Substantial/Maximal Assistance-helper does MORE THAN HALF the effort. [place] lifts or holds trunk or limbs and provides more than half the effort. 4-Goijfcyju-crbpob does ALL the effort. Patient does none of the effort to complete the activity. Or, the assistance of 2 or more helpers is required for the patient to complete the activity. If activity was not attempted, code reason: 7-Patient Refused. 9-Not Applicable-not attempted and the patient did not perform the activity before the current illness, exacerbation or injury. 10-Not Attempted due to Environmental Limitations-(lack of equipment, weather restraints, etc.). 88-Not Attempted due to Medical Conditions or Safety Concerns. Lying to Sitting/Side of Bed(Q: 6 Sit to Stand (QC): 6 Chair/Mtz-gh-Uexqm Xfer(QC): 6 Toilet Transfer (QC): 6 Weight Bearing Left Lower Extremity: Left Weight Bearing/Tolerated Gait Training Does the Patient Walk?: Yes Distance: 225' Walk 10 feet (QC): 6 Walk 50 ft with 2 Turns(QC): 6 Walk 150 ft (QC): 6 Gait Assistive Device: FWW slow and antalgic Stair Training Stair Training: Handrails/: 1 handrail #of Steps: 1 1 Step (curb) (QC): 4 Stairs: Pattern: Step to Exercises Supine Ex: Ankle pumps, Quad Set, Heel Slides, Straight leg raise Supine Reps: 12 Seated Therapy Exercises: Long arc quads Seated Reps: 15 Assessment Patient tolerated treatment well and will dismiss to home with home health and family assist on this date. PT Nursing Home Goals Nursing Home Goals PT Nursing Home Goals Time Frame: Sep 07, 2020 Roll Left & Right (QC): 6 Sit to Lying (QC): 6 Lying-Sitting on Side/Bed(QC): 6 Sit to Stand (QC): 4 Chair/Hjh-gb-Pfwtd Xfer(QC): 4 Walk 10 feet (QC): 4 Walk 50ft with 2 Turns (QC): 4 Walk 150 ft (QC): 4 1 Step (curb) (QC): 4 PT Plan Treatment/Plan Treatment Plan: Discontinue PT, goals met Treatment Plan: Bed Mobility, Education, Functional Activity Brayan, Functional Strength, Gait, Safety, Therapeutic Exercise, Transfers Treatment Duration: Sep 07, 2020 Frequency: 11 times per week Estimated Hrs Per Day: .25 hour per day Patient and/or Family Agrees t: Yes Time/GCodes Time In: 805 Time Out: 829 Total Billed Treatment Time: 24 Total Billed Treatment 1 visit EX 14 min GT 10 min VIN KURTZ PT Sep 02, 2020 09:38
== END 2020-09-02 10:25 | disposition home health service (06) | DRG 470 ==
LOC: 4TH 08:31 → SURG 08:32 → 4TH 11:26
PROVIDERS: ADMIT Orthopaedic Surgery; ATTEND Orthopaedic Surgery
PROC: 0SRD0J9 Replacement of Left Knee Joint with Synthetic Substitute, Cemented, Open Approach (ICD-10-PCS; principal; 2020-08-31 10:21)
DX: M17.12 Unilateral primary osteoarthritis, left knee (principal); J44.9 Chronic obstructive pulmonary disease, unspecified; F32.9 Major depressive disorder, single episode, unspecified; G56.00 Carpal tunnel syndrome, unspecified upper limb; F17.210 Nicotine dependence, cigarettes, uncomplicated; G62.9 Polyneuropathy, unspecified; K21.9 Gastro-esophageal reflux disease without esophagitis; G89.29 Other chronic pain; M54.9 Dorsalgia, unspecified; F41.9 Anxiety disorder, unspecified; E03.9 Hypothyroidism, unspecified
CPT/HCPCS: 36415; 73560; 80053; 85007; 85027; 86850; 86900; 86901; 94664; 94760

== ENCOUNTER → 2021-08-17 | Outpatient (CLI) | payer MEDICARE ==
[~2021-08-17] MED LIST changes: +CATHETER FLUSH 10 ML SYR IVP PRN
--- NOTE | 2021-08-17 11:19 | Diagnostic Imaging Report ---
INDICATION: Abdominal pain EXAM: Hepatobiliary scan TECHNIQUE: 5.45 mCi of technetium 99m Choletec was given for the scan. Eight ounces of Ensure was given at 60 minutes. FINDINGS: There is homogeneous uptake of isotope throughout the liver. The cystic duct and common duct are both patent. The ejection fraction was 95%. IMPRESSION: Normal hepatobiliary scan. Dictated by: Dictated on workstation # [id number]
== END ==
LOC: CARD 10:00
PROVIDERS: ATTEND Surgery
DX: R10.13 Epigastric pain (principal)
CPT/HCPCS: 78227; A9537

== ENCOUNTER 2021-09-13 05:59 | Outpatient (CLI) | payer MEDICARE ==
[~2021-09-13] VITALS: Ht 162.6 cm; Wt 89.7 kg
[~2021-09-13 05:59] MED LIST changes: -CATHETER FLUSH 10 ML SYR IVP PRN
== END 2021-09-13 14:34 | disposition home or self-care (01) ==
LOC: PREOP 05:59
PROVIDERS: ATTEND Surgery
DX: Z01.818 Encounter for other preprocedural examination (principal)

== ENCOUNTER 2021-09-20 10:22 | Day surgery (SDC) | payer MEDICARE ==
[~2021-09-20] VITALS: Ht 162.6 cm; Wt 89.7 kg
[2021-09-20] VITALS (11 sets, daily range): BP systolic 119–175; BP diastolic 69–106
[2021-09-20] MEDS ORDERED: LIDOCAINE/EPI 1%-1:100,000 (XYLOCAINE) 20ML ONE (11:11)
[2021-09-20] MEDS ORDERED: LACTATED RINGERS 1,000 ML IV PRN (11:30)
[2021-09-20] MEDS ORDERED: ceFAZolin 2 GM IV Premixed 50 ML IV ONE (11:45)
[2021-09-20] MEDS ORDERED: ceFAZolin 2 GM IV Premixed 50 ML ONE (11:46)
[2021-09-20] MEDS ORDERED: NEOSTIGMINE 3 MG/3 ML VIAL ONE (11:47)
[2021-09-20] MEDS ORDERED: fentaNYL INJ 100 MCG/2 ML AMP ONE (11:47)
[2021-09-20] MEDS ORDERED: ONDANSETRON 4 MG/2 ML (SDV) Z0FRAN ONE (11:47)
[2021-09-20] MEDS ORDERED: GLYCOPYRROLATE 0.2 MG/ML (ROBINUL) 2 ML VIAL ONE ×2 (11:47→12:47)
[2021-09-20] MEDS ORDERED: LIDOCAINE PF 2% 5 ML (XYLOCAINE) VIAL ONE (11:47)
[2021-09-20] MEDS ORDERED: proPOfol 200 MG/20 ML (DIPRIVAN) VIAL IV ONE (11:47)
[2021-09-20] MEDS ORDERED: MIDAZOLAM 2 MG/2 ML (VERSED) VIAL ONE (11:48)
[2021-09-20] MEDS ORDERED: ROCURONIUM 50 MG/5 ML (ZEMURON) VIAL IV ONE (11:48)
--- NOTE | 2021-09-20 12:17 | Progress Note-Pre Operative ---
Pre-Operative Progress Note H&P Reviewed The H&P was reviewed, patient examined and no changes noted. Time Seen by Provider: 12:15 Date H&P Reviewed: Sep 20, 2021 Time H&P Reviewed: 12:15 Pre-Operative Diagnosis: Biliary Dyskinesia, Incarcerated Ventral Hernia FREYA DIAS DO Sep 20, 2021 12:17
[2021-09-20] MEDS ORDERED: HYDROmorphone 2 MG/ML VIAL (DILAUDID) ONE (12:58)
[2021-09-20] MEDS ORDERED: SEVOFLURANE (ULTANE) 15 ML INHAL SOLN ONE (14:31)
[2021-09-20] MEDS ORDERED: HYDROmorphone 2 MG/ML VIAL (DILAUDID) IV ONE (15:00)
[2021-09-20] MEDS ORDERED: ONDANSETRON 4 MG/2 ML (SDV) Z0FRAN IVP PRN (15:00)
[2021-09-20] MEDS ORDERED: morphine INJ 10 MG/ML 1ML (SYR OR VIAL) IVP ONE (15:00)
[2021-09-20] MEDS ORDERED: ACHD5005 PO (15:37)
--- NOTE | 2021-09-20 15:39 | Discharge Inst-Surgical ---
Discharge Inst-Surgical Depart Medication/Instructions New, Converted or Re-Newed RX: Transmitted to Pharmacy Patient Instructions Follow up Appt: Make appointment for 1 week. [phone] Instructions: No lifting greater than 20 pounds. No strenuous activity. May shower in 24 hours, no tub bath or soaking. Use incentive spirometer at home as directed. No Smoking Skin/Wound Care: May remove bandages in am. You need to leave the Dermabond on incision it will fall off on it's own. Symptoms to Report: Appetite Changes, Extremity Discoloration, Numbness/Tingling, Swelling Increased, Bleeding Excessive, Eyesight Changes, Pain Increased, Urine Color Change, Constipation(Persistent), Fever over 101 degree F, Pain/Pressure in chest, Urinating Difficulty, Cough Up/Vomit Blood, Heart Beat Irreg/Pounding, Pain/Pressure in jaw, Cramps in feet or legs, Lightheadedness, Pain/Pressure in shoulder, Diarrhea(Persistent), Memory Changes Suddenly, Questions/Concerns, Weight gain consecutive days, Dizziness/Fainting, Nausea/Vomiting, Shortness of Breath, Weight gain over 2 pounds If questions or concerns contact your physician Or seek help at emergency department. Activity Activity as Tolerated: Yes Activity Instructions: Avoid Stress to Incision Driving Instructions: No Driving/Refer to Diet Discharge Diet: Avoid Fatty Foods, Low Fat/Low Cholesterol Diet After 24 Hours: Clear Liquid if Nauseous If Any Problems/Questions/Issu: Contact Your Physician, Go to Emergency Room Skin/Wound Care Infection Signs and Symptoms: Increased Redness, Foul Odor of Wound, Increased Drainage, Skin Itchy or Has a Rash, Increased Swelling, Temperature Above 101 F Wound Care Comment: heating pad to shoulder or neck tonight for pain Bathing Instructions: Shower Stitches/Dearing/Dermabond Dis: Dermabond Ice Pack: Ice On and Off Site FREYA DIAS DO Sep 20, 2021 15:39
[2021-09-20] MEDS ORDERED: HYDROcodone/APAP 5 MG/325 MG (LORTAB) TAB PO ONE (16:00)
[2021-09-20] MEDS ORDERED: HYDROcodone/APAP 5 MG/325 MG (LORTAB) TAB ONE (16:08)
--- NOTE | 2021-09-20 16:22 | Diagnostic Imaging Report ---
INDICATION: Fluoroscopy during intraoperative cholangiogram. 12 seconds of fluoroscopic time was utilized during intraoperative cholangiogram. Contrast is seen being injected via the cystic duct remnant. Intrahepatic and extrahepatic bile ducts are opacified. There is some dilatation of the extrahepatic duct. No filling defects are seen. There is contrast flowing into the duodenum. IMPRESSION: Fluoroscopy during intraoperative cholangiogram. Dictated by: Dictated on workstation # [id number]
--- NOTE | 2021-09-20 20:29 | Progress Note-Post Operative ---
Post-Operative Progess Note Surgeon (s)/Broaching Machine Set Up Operator (s) Surgeon FREYA DIAS DO Broaching Machine Set Up Operator: [place] Pre-Operative Diagnosis Biliary Dyskinesia, Incarcerated Ventral Hernia Post-Operative Diagnosis Same plus adhesions Procedure & Operative Findings Date of Procedure 09/20/21 Procedure Performed/Findings 1) Laparoscopic Ventral incisional hernia with mesh placement 2) Laparoscopic Cholecystectomy with IOC PROCEDURE: The patient was taken to the operating suite and was prepped and draped in sterile fashion. A surgical pause was performed. Just superior to the umbilicus, a 12 mm incision was made. Dissection was taken down to the fascia, which was then scored and grasped with a Ishaan and the abdomen was then entered. A Alexander trocar was placed and secured. Pneumoperitoneum was achieved. Immediately upon entering noted adhesions all over the abdomen and started placed but able to see the right upper quadrant and place a 5 mm trocar port and direct physician use the versive system to be to start taking these adhesions down. A second 5mm trochar was placed left upper quadrant and continued to take down the adhesions. Finally places the last one in the right upper quadrant, with versa step system all done under visualization. Continued taking down adhesions and part of the falciform ligament to be able to visualize the gallbladder. The gallbladder was then grasped at the fundus and elevated in the superior direction. There were multiple adhesions to the gallbladder and the liver, these were carefully taken down with Bovie electrocautery. Once freed up then grasped at Hirsch's pouch and pulled in the infero-lateral direction and the cystic duct, and cystic artery were then dissected out. Clip was placed on the distal portion of the cystic duct which was then partially transected. An arrow catheter was inserted into the duct. The cholangiogram was then performed. No filing defects and contrast made its way into the duodenum. Catheter removed. Clips were placed on proximal portion of the cystic duct and then the duct was then transected. Clips were placed along the proximal and distal portion of the cystic artery which was then transected. Hook cautery was used to dissect the gallbladder from the gallbladder fossa as well as the ligasure to achieve hemostasis. The gallbladder was placed in an Endobag and removed through the 12 mm trocar site. At this point noted the hernia defect and elected to close this through the supraumbilical incision using 0 Vicryl suture and a [id number]-xb-xfqhm to close this. We had placed a 4-1/2 inch round echo Bard mesh into the abdomen before closing the fasica; it was then brought up to the abdominal wall insufflated and then tacked in place with a secure strap tacker. Tacking around the edges at 1 cm intervals and then in the middle to create a crown; for support. Had placed another port (subxiphoid) a VersaStep port to be able to help placed tacks. Once this was tacked up, we looked around the abdomen was then reinspected. Copious amounts of irrigation were used to irrigate the abdomen and actually found signs of active bleeding. The bleed was coming from the omentum we had pulled out of the hernia, able to stop the bleeding with the Ligasure, hemostasis had been achieved. The mesh was removed with one of the 5 mm ports and suctioned up as much blood and irrigation as we could. Finally the abdomen was then desufflated and all other trocars were removed. The abdomen was then washed and dried. The skin was then closed using 4-0 Monocryl in a subcuticular fashion. The abdomen was washed and dried and Skin Affix was place over incisions. Patient tolerated the procedure well without any complications and was taken to the recovery room in stable condition. Dr. Rosenthal assisted on this case helping to make incisions, close incisions, identify anatomy, hold anatomy out of the way and tack up the mesh. Anesthesia Type GET Estimated Blood Loss Estimated blood loss (mL): appx 50ml Specimens/Packing Specimens Removed GB and contents FREYA DIAS DO Sep 20, 2021 20:29
--- NOTE | 2021-09-22 13:34 | Anesthesia-General Post-Op ---
General Post Op Complications Complications None Follow Up Care/Instructions Patient Instructions None needed. Anesthesia/Patient Condition Patient Condition Patient was seen after the procedure and doing well, no complaints, stable vital signs, no apparent adverse anesthesia problems. No complications reported per nursing. JAMMIE ALEXANDER DO Sep 22, 2021 13:34
== END 2021-09-20 16:54 | disposition home or self-care (01) ==
LOC: SDC 10:22
PROVIDERS: ATTEND Surgery
DX: K80.10 Calculus of gallbladder with chronic cholecystitis without obstruction (principal); K43.6 Other and unspecified ventral hernia with obstruction, without gangrene; F17.210 Nicotine dependence, cigarettes, uncomplicated
CPT/HCPCS: 47563; 49653; 76000; 87081; C1781

== ENCOUNTER → 2021-11-21 | Outpatient (CLI) | payer MEDICARE ==
[~2021-11-21] MED LIST changes: +ACHD5005 PO; +RT-ALBUTEROL SULF 2.5 MG/3 ML PRE-MIX VIAL INH ONE
--- NOTE | 2021-11-21 10:16 | Diagnostic Imaging Report ---
PROCEDURE: CT chest without contrast. TECHNIQUE: Multiple contiguous axial images were obtained through the chest without the use of intravenous contrast. Auto Exposure Controls were utilized during the CT exam to meet ALARA standards for radiation dose reduction. INDICATION: COPD COMPARISON: 05/20/2018 There has been mild worsening of centrilobular emphysema and interstitial lung prominence with an upper lobe predominance. There are subcentimeter nodules in both lungs which are not appreciably changed. The largest is in the lingula reaching 0.7 cm in diameter. There is no significant pleural or pericardial fluid and no pathologically enlarged adenopathy is seen in the thorax. There is stable heterogeneous enlargement of left lobe of thyroid gland. Upper abdominal sections reveal no acute abnormality or adverse change. IMPRESSION: Mild worsening of COPD with stable appearance of bilateral nodules indicating benign etiology. Overall, no other adverse change is appreciated. Dictated by: Dictated on workstation # [id number]
== END ==
LOC: RT 09:14
PROVIDERS: ATTEND Nurse Practitioner Family
DX: J44.9 Chronic obstructive pulmonary disease, unspecified (principal); R91.1 Solitary pulmonary nodule
CPT/HCPCS: 71250; 94060; 94726; 94729

== ENCOUNTER → 2022-11-20 | Outpatient (CLI) | payer MEDICARE ==
[~2022-11-20] MED LIST changes: -RT-ALBUTEROL SULF 2.5 MG/3 ML PRE-MIX VIAL INH ONE
--- NOTE | 2022-11-20 11:13 | Diagnostic Imaging Report ---
CT Lung Screening INDICATION:Screening for lung cancer, 94 pack year history of smoking, current smoker TECHNIQUE: Noncontrast, low-dose CT imaging performed according to the lung cancer screening protocol. Auto Exposure Controls were utilize during the CT exam to meet ALARA standards for radiation dose reduction. COMPARISON:11/21/2021 and 05/20/2018 FINDINGS:No pathologically enlarged lymph nodes within the chest. Minimal vascular calcifications without aneurysmal dilatation of thoracic aorta. The heart is within normal limits in size. No significant pericardial effusion. No left-sided pleural effusion. Moderate-sized dependently layering right pleural effusion with adjacent atelectasis. The trachea is patent. No pneumothorax. Mild background emphysematous changes. 1.0 x 0.8 x 0.7 cm solid lingular pulmonary nodule, series 2, image 153, is not changed from the prior examination. Additionally, this appears relatively similar to prior imaging from 2019 when accounting for differences and adjacent atelectasis. Multiple additional bilateral pulmonary nodules are again identified, right greater than left. These are below 1 cm in size. Significantly changed the prior examination. No new right-sided pulmonary nodule. Ascites is identified within the partially visualized upper abdomen. Postsurgical changes within the cervical spine partially visualized. Scattered osseous degenerative changes without acute osseous abnormality. IMPRESSION:Stable 1 cm and smaller bilateral pulmonary nodules. Given morphology and stability, this suggests a benign appearance or behavior. No new suspicious or actionable pulmonary nodule with mild background emphysematous changes again noted. Interval development of a dependently layering moderate sized right-sided pleural effusion with adjacent atelectasis. Development of a small amount of ascites within the partially visualized upper abdomen. LUNG-RADS CATEGORY:2: Benign appearance or behavior MODIFIER:S: Moderate right-sided pleural effusion and small amount of ascites within the partially visualized upper abdomen. Followup: Low-dose CT of the chest in 12 months. Dictated by: Dictated on workstation # [id number]
== END ==
LOC: RAD 09:30
PROVIDERS: ATTEND Nurse Practitioner Family
DX: J90 Pleural effusion, not elsewhere classified (principal); R18.8 Other ascites; F17.210 Nicotine dependence, cigarettes, uncomplicated; Z12.31 Encounter for screening mammogram for malignant neoplasm of breast; Z13.820 Encounter for screening for osteoporosis
CPT/HCPCS: 71271

== ENCOUNTER 2022-11-23 15:05 | Observation (INO) | payer MEDICARE ==
[~2022-11-23] VITALS: Ht 162 cm; Wt 84.0 kg
--- NOTE | 2022-11-23 15:24 | ED General ---
General Chief Complaint: General Problems/Pain Stated Complaint: SWELLING BILAT FEET - SOA Nursing Triage Note: PT AMB TO [facility] 6 WITH C/O INCREASED SOB AND WAS CALLED TODAY AND TOLD TO COME TO ER AFTER LUNG CT CHANGES FROM [facility] THIS WEEK Source of Information: Patient Exam Limitations: No Limitations History of Present Illness Date Seen by Provider: Nov 23, 2022 Time Seen by Provider: 15:21 Initial Comments Patient is a 62-year-old female with a history of COPD, smoking who presents to the ED for shortness of breath. Shortness of breath seems to be fairly constant but worse with exertion or when she lies down. She reports a wet productive cough with clear sputum production. She reports intermittent lower leg swelling for the past 2 months. She states she has been out of her oxygen over the past 2 months. She wears oxygen at at night. On arrival her oxygen was 88% on room air. She was given Lasix recently which she has been taken 10 mg as needed. She reports increased leg swelling. Denies of any current chest pain or abdominal pain. Had some epigastric pain today. Denies nausea vomiting and diarrhea. Denies headache, sore throat, body aches, chills, fatigue or weakne ss. Patient states she had a CT scan on November 20 which noted a pleural effusion. Allergies and Home Medications Allergies Coded Allergies: No Known Drug Allergies (Unverified , 09/13/21) Patient Home Medication List Home Medication List Reviewed: Yes Albuterol Sulfate (Ventolin Hfa) 1 Puff Puff, 2 PUFF INH Q4H PRN for SHORTNESS OF BREATH, (Reported) Entered as Reported by: STACIA WYATT on 12/18/18943 Last Action: Reviewed Celecoxib (Celebrex) 100 Mg Capsule, 200 MG PO DAILY, (Reported) Entered as Reported by: ELIZABETH BAH on 07/25/20 1126 Last Action: Reviewed Citalopram Hydrobromide (Citalopram HBr) 20 Mg Tablet, 20 MG PO DAILY, (Reported) Entered as Reported by: STACIA WYATT on 12/18/18943 Last Action: Reviewed Furosemide (Furosemide) 20 Mg Tablet, 20 MG PO Q48H PRN for BLOOD PRESSURE Prescribed by: FELY WILCOX on 11/24/22 1639 Gabapentin (Gabapentin) 600 Mg Tablet, 600 MG PO TID, (Reported) Entered as Reported by: YUNIOR GRIGSBY on 11/24/22 0824 Last Action: New Order Methocarbamol (Methocarbamol) 500 Mg Tablet, 500 MG PO BID, (Reported) Entered as Reported by: STACIA WYATT on 12/18/18 0944 Last Action: Reviewed Trazodone HCl (Trazodone HCl) 50 Mg Tablet, 75 MG PO HS, (Reported) Entered as Reported by: ELIZABETH BAH on 07/25/20 1126 Last Action: Reviewed Discontinued Medications Gabapentin (Gabapentin) 600 Mg Tablet, 600 MG PO TID, (Reported) Entered as Reported by: STACIA WYATT on 12/18/18943 Hydrocodone Bit/Acetaminophen (HYDROcodone/APAP 5 MG/325 MG TAB) 1 Tab Tab, 1 TAB PO Q8H PRN for PAIN-MODERATE (5-7) Discontinued Reason: No Longer Taking Prescribed by: FREYA DIAS on 09/20/21 1538 Last Action: Discontinued Review of Systems Review of Systems Constitutional: No chills, No diaphoresis, No malaise, No weakness EENTM: No blurred vision, No double vision Respiratory: cough, short of breath Cardiovascular: No chest pain Gastrointestinal: abdominal pain; No diarrhea, No nausea Genitourinary: No decreased output, No discharge Musculoskeletal: No back pain, No joint pain Skin: No change in color, No change in hair/nails All Other Systems Reviewed Negative Unless Noted: Yes Past Fyyyozh-Dtgfve-Zdyukm Hx Patient Social History Tobacco Use?: Yes Tobacco type used: Cigarettes Substance use?: Yes Substance type: Marijuana Alcohol Use?: No Pt feels they are or have been: No Immunizations Up To Date First/Initial COVID19 Vaccinat: 2020 Second COVID19 Vaccination Bridger: 2020 Third COVID19 Vaccination Date: 2020 Seasonal Allergies Seasonal Allergies: Yes Past Medical History Surgery/Hospitalization HX: COPD, CHRONIC NERVE PAIN, INSOMNIA TRIGGER FINGER SURGERY, L SHOULDER, L KNEE REPLACMENT, NECK AND BACK SURGERY, YANET, HERNIA REPAIR X3, CHOLECYCECTOMY Surgeries: Yes (NECK, L SHOULDER, LUMPECTOMY, BACK, L TOTAL KNEE) Orthopedic Respiratory: Yes (O2 3L NC AT NIGHT) Sleep Apnea, COPD Currently Using CPAP: Yes Currently Using BIPAP: No Cardiac: No Neurological: Yes (MIGRAINES FROM LOW OXYGEN LEVELS AT NIGHT) Headaches /Migraines, Neuropathy Sexually Transmitted Disease: No HIV/AIDS: No Genitourinary: No Gastrointestinal: Yes (UMBILICAL) Abdominal Hernia, Gastroesophageal Reflux Musculoskeletal: Yes Degenerate Disk Disease, Arthritis, Chronic Back Pain Endocrine: No (HX THYROID [id number] ONLY) HEENT: Yes (GLASSES) Loss of Vision: Denies Hearing Impairment: Denies Cancer: No Psychosocial: Yes Sleep Difficulties, Anxiety, Depression Integumentary: No Blood Disorders: No Adverse Reaction/Blood Tranf: No (N/A) Family Medical History Alzheimer's disease Arthritis Asthma Cardiovascular disease Completed stroke Dementia Diabetes mellitus Hypertension Myocardial infarction Osteoporosis Psychosocial problem Respiratory disorder Thyroid disease Visual disorder Physical Exam Vital Signs Vital Signs - First Documented 11/23/22 15:11 Temp 37.1 Pulse 71 Resp 30 B/P (MAP) 142/69 (93) Pulse Ox 94 O2 Delivery Nasal Cannula O2 Flow Rate 2.00 Capillary Refill : Height, Weight, BMI Height: 5'4.00" Weight: 198lbs. 0.0oz. 89.247538ml; 32.00 BMI Method: General Appearance: No Apparent Distress, WD/WN Eyes: Bilateral Eye Normal Inspection, Bilateral Eye PERRL, Bilateral Eye EOMI HEENT: PERRL/EOMI, TMs Normal, Normal ENT Inspection, Pharynx Normal Neck: Full Range of Motion, Normal Inspection, Non Tender, Supple Respiratory: Wheezing Cardiovascular: Regular Rate, Rhythm, No Edema, No Gallop, No JVD, No Murmur Gastrointestinal: Normal Bowel Sounds, No Organomegaly, No Pulsatile Mass, Non Tender Extremity: Normal Capillary Refill, Normal Inspection, Normal Range of Motion, Non Tender Neurologic/Psychiatric: Alert, Oriented x3, No Motor/Sensory Deficits, Normal Mood/Affect, radiology director II-XII Norm as Tested Skin: Normal Color, Warm/Dry Focused Exam Lactate Level 11/23/22 15:20: Lactic Acid Level 1.00 Lactic Acid Level Laboratory Tests Test 11/23/22 15:20 Lactic Acid Level 1.00 MMOL/L (0.50-2.00) Progress/Results/Core Measures Suspected Sepsis SIRS Temperature: Pulse: 71 Respiratory Rate: 30 Laboratory Tests 11/23/22 15:20: White Blood Count 9.2 Blood Pressure 142 /69 Mean: 93 11/23/22 15:20: Lactic Acid Level 1.00 Laboratory Tests 11/23/22 15:20: Creatinine 0.67, INR Comment 1.3, Platelet Count 240, Total Bilirubin 1.3H Results/Orders Lab Results Laboratory Tests Test 11/23/22 15:20 11/23/22 15:30 Range/Units White Blood Count 9.2 4.3-11.0 10^3/uL Red Blood Count 4.77 3.80-5.11 10^6/uL Hemoglobin 14.6 11.5-16.0 g/dL Hematocrit 43 35-52 % Mean Corpuscular Volume 91 80-99 fL Mean Corpuscular Hemoglobin 31 25-34 pg Mean Corpuscular Hemoglobin Concent 34 32-36 g/dL Red Cell Distribution Width 15.5 H 10.0-14.5 % Platelet Count 240 130-400 10^3/uL Mean Platelet Volume 10.4 9.0-12.2 fL Immature Granulocyte % (Auto) 0 % Neutrophils (%) (Auto) 71 42-75 % Lymphocytes (%) (Auto) 18 12-44 % Monocytes (%) (Auto) 10 0-12 % Eosinophils (%) (Auto) 0 0-10 % Basophils (%) (Auto) 1 0-10 % Neutrophils # (Auto) 6.6 1.8-7.8 10^3/uL Lymphocytes # (Auto) 1.6 1.0-4.0 10^3/uL Monocytes # (Auto) 0.9 0.0-1.0 10^3/uL Eosinophils # (Auto) 0.0 0.0-0.3 10^3/uL Basophils # (Auto) 0.1 0.0-0.1 10^3/uL Immature Granulocyte # (Auto) 0.0 0.0-0.1 10^3/uL Prothrombin Time 16.2 H 12.2-14.7 SEC INR Comment 1.3 0.8-1.4 Activated Partial Thromboplast Time 46 H 24-35 SEC Sodium Level 127 L 135-145 MMOL/L Potassium Level 4.3 3.6-5.0 MMOL/L Chloride Level 94 L 98-107 MMOL/L Carbon Dioxide Level 23 21-32 MMOL/L Anion Gap 10 5-14 MMOL/L Blood Urea Nitrogen 11 7-18 MG/DL Creatinine 0.67 0.60-1.30 MG/DL Estimat Glomerular Filtration Rate 99 BUN/Creatinine Ratio 16 Glucose Level 82 70-105 MG/DL Lactic Acid Level 1.00 0.50-2.00 MMOL/L Calcium Level 9.6 8.5-10.1 MG/DL Corrected Calcium 9.2 8.5-10.1 MG/DL Total Bilirubin 1.3 H 0.1-1.0 MG/DL Aspartate Amino Transf (AST/SGOT) 19 5-34 U/L Alanine Aminotransferase (ALT/SGPT) 19 0-55 U/L Alkaline Phosphatase 122 40-136 U/L Troponin I < 0.028 <0.028 NG/ML C-Reactive Protein High Sensitivity 0.52 H 0.00-0.50 MG/DL B-Type Natriuretic Peptide 377.5 H <100.0 PG/ML Total Protein 7.6 6.4-8.2 GM/DL Albumin 4.5 3.2-4.5 GM/DL Influenza Type A (RT-PCR) Not Detected Not Detecte Influenza Type B (RT-PCR) Not Detected Not Detecte SARS-CoV-2 RNA (RT-PCR) Not Detected Not Detecte Urine Color YELLOW Urine Clarity CLEAR Urine pH 5.0 5-9 Urine Specific [place] <=1.005 1.016-1.022 Urine Protein NEGATIVE NEGATIVE Urine Glucose (UA) NEGATIVE NEGATIVE Urine Ketones NEGATIVE NEGATIVE Urine Nitrite NEGATIVE NEGATIVE Urine Bilirubin NEGATIVE NEGATIVE Urine Urobilinogen 1.0 < = 1.0 MG/DL Urine Leukocyte Esterase NEGATIVE NEGATIVE Urine RBC (Auto) TRACE H NEGATIVE Urine RBC RARE /HPF Urine WBC RARE /HPF Urine Squamous Epithelial Cells 0-2 /HPF Urine Crystals NONE /LPF Urine Bacteria NEGATIVE /HPF Urine Casts NONE /LPF Urine Mucus NEGATIVE /LPF Urine Culture Indicated NO My Orders Orders - PAL MEDELLIN Cbc With Automated Diff (11/23/22 15:17) Comprehensive Metabolic Panel (11/23/22 15:17) Blood Culture (11/23/22 15:17) Sputum Culture (11/23/22 15:17) Urinalysis (11/23/22 15:17) Protime With Inr (11/23/22 15:17) Partial Thromboplastin Time (11/23/22 15:17) Chest 1 View, Ap/Pa Only (11/23/22 15:17) Ed Iv/Invasive Line Start (11/23/22 15:17) Troponin I Curry (11/23/22 15:17) Vital Signs Adult Sepsis Patie Q15M (11/23/22 15:17) O2 (11/23/22 15:17) Lactic Acid Analyzer (11/23/22 15:17) Influenza A And B By Pcr (11/23/22 15:17) Ceftriaxone Iv/Im (Ceftriaxone Iv/Im) (11/23/22 15:30) Covid 19 Inhouse Test (11/23/22 15:17) Bnp Martina (11/23/22 15:17) Hs C Reactive Protein (11/23/22 15:18) Ipratropium/Albuterol Inh Soln (Ipratrop (11/23/22 16:00) Svn Small Volume Nebulizer (11/23/22 15:50) Methylprednisolone Sod Succ (Methylpredn (11/23/22 16:00) Ekg Tracing (11/23/22 15:54) Vital Signs/I&O 11/23/22 11/23/22 15:11 15:12 Temp 37.1 Pulse 71 Resp 30 B/P (MAP) 142/69 (93) Pulse Ox 94 O2 Delivery Nasal Cannula Nasal Cannula O2 Flow Rate 2.00 2.00 Capillary Refill : Blood Pressure Mean: 93 ECG Comment Sinus rhythm, possible left atrial lodgment, possible right ventricular hypertrophy, moderate T wave abnormality in V3 V4, 65 bpm, QRS duration 85 MS, QTc 437 MS Departure Communication (PCP) Patient presents to ED with shortness of breath, leg swelling and cough. History of COPD. Wears 2 L oxygen at night. No known cardiac history. She does take 10 mg of Lasix as needed. On arrival she does have a lower leg swelling. She was hypoxic. Required 2 L of oxygen as her oxygen level was in the mid upper 80s. Differential diagnosis new onset CHF versus COPD exacerbation versus pneumonia. Generalized lab work, blood cultures, lactic acid. Received Solu-Medrol DuoNeb breathing treatment and received a dose of IV Rocephin. CBC was grossly unremarkable. Chemistry showed sodium 127, chloride 94, normal kidney function, liver function. Normal troponin, BNP 357. EKG without evidence of ST elevation depression. She had some abdominal pain today but no pain at this time. Denies any current chest pain. She had a CT scan of her chest this prior Saturday that noted moderate right-sided pleural effusion wit h small amount ascites within the partially visualized upper abdomen. Pulmonary nodules noted. Chest x-ray showed mild cardiomegaly without evidence of consolidation or pneumonia. Patient states breathing seem to be improving some. Patient was discussed with Dr. Abreu cardiology who recommended admission for IV Lasix and echo in the morning. Patient was given 40 mg of IV Lasix. Vital signs remained stable. Patient was discussed with Dr. Salmeron hospitalist agreed to accept patient for new onset CHF. Concern for fluid overload. Impression Primary Impression: CHF (congestive heart failure) Additional Impression: Pleural effusion Disposition: ADMITTED INPATIENT Condition: Stable Admissions Decision to Admit Reason: Admit from ER (General) Decision to Admit/Date: Nov 23, 2022 Time/Decision to Admit Time: 16:05 Departure-Patient Inst. Referrals: [facility] (PCP/Family) Primary Care Physician Scripts Furosemide (Furosemide) 20 Mg Tablet 20 MG PO Q48H PRN for BLOOD PRESSURE for 30 Days, #30 TAB 0 Refills Take one tablet every other day for 30 days. Prov: FELY WILCOX MD 11/24/22 PAL MEDELLIN Nov 23, 2022 15:24
[2022-11-23 15:29] LABS: BASOPHILS # (AUTO) 0.1 10^3/uL (0.0-0.1); BASOPHILS % (AUTO) 1 % (0-10); EOSINOPHILS % (AUTO) 0 % (0-10); HEMATOCRIT 43 % (35-52); HEMOGLOBIN 14.6 g/dL (11.5-16.0); LYMPHOCYTES # (AUTO) 1.6 10^3/uL (1.0-4.0); LYMPHOCYTES % (AUTO) 18 % (12-44); MEAN CORPUSCULAR HEMOGLOBIN 31 pg (25-34); MEAN CORPUSCULAR HGB CONC 34 g/dL (32-36); MEAN CORPUSCULAR VOLUME 91 fL (80-99); MEAN PLATELET VOLUME 10.4 fL (9.0-12.2); MONOCYTES # (AUTO) 0.9 10^3/uL (0.0-1.0); MONOCYTES % (AUTO) 10 % (0-12); NEUTROPHILS # (AUTO) 6.6 10^3/uL (1.8-7.8); NEUTROPHILS % (AUTO) 71 % (42-75); PLATELET COUNT 240 10^3/uL (130-400); WHITE BLOOD COUNT 9.2 10^3/uL (4.3-11.0)
[2022-11-23] MEDS ORDERED: cefTRIAXone IV/IM 1,000 MG in NS (IVPB) 50 ML 50 ML IV ONE (15:30)
[2022-11-23 15:44] LABS: INR 1.3 (0.8-1.4); PROTHROMBIN TIME PATIENT 16.2 SEC (12.2-14.7)
--- NOTE | 2022-11-23 15:45 | Diagnostic Imaging Report ---
HISTORY: Dyspnea. COMPARISON: 01/25/2019. TECHNIQUE: Frontal view of the chest. FINDINGS: Lung volumes are normal. There is mild cardiomegaly with mild central vascular congestion. There is no pleural effusion or pneumothorax. There is aortic atherosclerosis. Cervical spine fusion hardware is noted. IMPRESSION: 1. Mild cardiomegaly with mild central vascular congestion. Dictated by: Dictated on workstation # [id number]
[2022-11-23 15:51] LABS: ALANINE AMINOTRANSFERASE 19 U/L (0-55); ALBUMIN 4.5 GM/DL (3.2-4.5); ALKALINE PHOSPHATASE 122 U/L (40-136); BILIRUBIN,TOTAL 1.3 MG/DL (0.1-1.0); BUN/CREATININE RATIO 16; CALCIUM 9.6 MG/DL (8.5-10.1); CARBON DIOXIDE 23 MMOL/L (21-32); CHLORIDE 94 MMOL/L (98-107); CREATININE SERUM 0.67 MG/DL (0.60-1.30); GFR ESTIMATED 99; GLUCOSE 82 MG/DL (70-105); POTASSIUM 4.3 MMOL/L (3.6-5.0); SODIUM 127 MMOL/L (135-145); TOTAL PROTEIN 7.6 GM/DL (6.4-8.2)
[2022-11-23 15:54] LABS: CLARITY,URINE CLEAR; COLOR,URINE YELLOW
[2022-11-23 15:55] LABS: BACTERIA,URINE NEGATIVE /HPF; BILIRUBIN,URINE NEGATIVE (NEGATIVE); GLUCOSE, URINE (UA) NEGATIVE (NEGATIVE); KETONES,URINE NEGATIVE (NEGATIVE); LEUKOCYTE ESTERASE ,URINE NEGATIVE (NEGATIVE); NITRITE,URINE NEGATIVE (NEGATIVE); PROTEIN,URINE NEGATIVE (NEGATIVE); RBC,URINE RARE /HPF; SQUAMOUS EPITHELIAL CELL,UR 0-2 /HPF; WBC,URINE RARE /HPF
[2022-11-23] MEDS ORDERED: methylPREDNISolone INJ 125 MG VIAL IVP ONE (16:00)
[2022-11-23] MEDS ORDERED: RT-Ipratropium/Albuterol NEB 3 ML VIAL INH ONE (16:00)
[2022-11-23] MEDS ORDERED: FUROSEMIDE INJECTION 40 MG/4 ML VIAL IVP ONE (16:15)
[2022-11-23] MEDS ORDERED: LIDOCAINE UROJET 2% GEL 10 ML PKG ONE (16:48)
--- NOTE | 2022-11-23 16:52 | History & Physical-Hospitalist ---
History of Present Illness HPI/Chief Complaint Chief complaint: Shortness of breath from new congestive heart failure HPI: This is a 62-year-old female who has a past medical history of COPD and smoking who presented to the ER with shortness of breath found to have volume overload and pulmonary edema consistent with new onset congestive heart failure. Cardiology was consulted recommended echocardiogram and IV Lasix. Patient is breathing much better and has a Mcdaniel catheter and diuresing well. Source: patient Exam Limitations: no limitations Date Seen 11/23/22 Time Seen by a Provider: 18:00 Attending Physician Sreedhar Morin - [facility] PCP Admitting Physician: Attending Physician: Referring Physician Date of Admission Home Medications & Allergies Home Medications Reviewed patient Home Medication Reconciliation performed by pharmacy medication reconciliations financial services technician and/or nursing. Patients Allergies have been reviewed. Allergies Allergies Coded Allergies No Known Drug Allergies (Unverified09/13/21) Past Nngrmhf-Xvjgpm-Jcbvrh Hx Patient Social History Marrital Status: single Employed/Student: unemployed Tobacco Use?: Yes Tobacco type used: Cigarettes Substance use?: Yes Substance type: Marijuana Alcohol Use?: No Pt feels they are or have been: No Immunizations Up To Date Date of Influenza Vaccine: Apr 18, 2020 First/Initial COVID19 Vaccinat: 2020 Second COVID19 Vaccination Bridger: 2020 Tetanus Booster (TDap): Unknown Seasonal Allergies Seasonal Allergies: Yes Current Status Communicates: Verbally Primary Language: Ugandan Preferred Spoken Language: Ugandan Sensory deficits: Vision impairment Implanted or Applied Medical D: Orthopedic hardware Past Medical History Surgeries: Orthopedic Sleep Apnea, COPD Currently Using CPAP: Yes Currently Using BIPAP: No Headaches /Migraines, Neuropathy Sexually Transmitted Disease: No HIV/AIDS: No Abdominal Hernia, Gastroesophageal Reflux Degenerate Disk Disease, Arthritis, Chronic Back Pain Loss of Vision: Denies Hearing Impairment: Denies Sleep Difficulties, Anxiety, Depression Blood Disorders: No Adverse Reaction/Blood Tranf: No (N/A) Family Medical History Alzheimer's disease Arthritis Asthma Cardiovascular disease Completed stroke Dementia Diabetes mellitus Hypertension Myocardial infarction Osteoporosis Psychosocial problem Respiratory disorder Thyroid disease Visual disorder Review of Systems Constitutional: see HPI EENTM: no symptoms reported Respiratory: dyspnea on exertion, short of breath Physical Exam Physical Exam Vital Signs Vital Signs - First Documented 11/23/22 11/23/22 15:11 18:08 Temp 37.1 Pulse 71 Resp 30 B/P (MAP) 142/69 (93) Pulse Ox 94 O2 Delivery Nasal Cannula O2 Flow Rate 2.00 FiO2 28 Capillary Refill : Height, Weight, BMI Height: 5'4.00" Weight: 198lbs. 0.0oz. 89.434550xn; 32.00 BMI Method: General Appearance: No Apparent Distress, Chronically ill, Obese Respiratory: No Accessory Muscle Use, No Respiratory Distress, Decreased Breath Sounds Cardiovascular: Regular Rate, Rhythm Neurologic/Psychiatric: Alert, Oriented x3 Results Results/Procedures Labs Laboratory Tests 11/23/22 15:20 Patient resulted labs reviewed. Assessment/Plan Admission Diagnosis Assessment: Acute congestive heart failure new onset Volume overload Smoker COPD Anasarca Plan: IV diuresis Cardiac stepdown Cardiology consult Echo tomorrow Admission Status: Observation EMELY CAMPBELL DO Nov 23, 2022 16:52
[2022-11-23] MEDS ORDERED: diphenhydrAMINE 25 MG TABLET PO PRN (17:45)
[2022-11-23] MEDS ORDERED: ONDANSETRON INJECTION 4 MG/2 ML (SDV) IV PRN (17:45)
[2022-11-23] MEDS ORDERED: ANTACID SUSPENSION 30 ML UDC PO PRN (17:45)
[2022-11-23] MEDS ORDERED: ONDANSETRON 4 MG ORAL DISSOLVE TABLET PO PRN (17:45)
[2022-11-23] MEDS ORDERED: CALCIUM CARBONATE 500 MG CHEW TABLET PO PRN (17:45)
[2022-11-23] MEDS ORDERED: MELATONIN 3 MG TABLET PO PRN (17:45)
[2022-11-23] MEDS ORDERED: diphenhydrAMINE INJ 50 MG/ML VIAL IVP PRN (17:45)
[2022-11-23] MEDS ORDERED: HYDROmorphone INJECTION 2 MG/ML VIAL IV PRN (17:45)
[2022-11-23] MEDS ORDERED: BISACODYL 10 MG SUPPOSITORY PR PRN (17:45)
[2022-11-23] MEDS ORDERED: MILK OF MAGNESIA 400 MG/5 ML 30 ML UDC PO PRN (17:45)
[2022-11-23] MEDS ORDERED: oxyCODONE IMMEDIATE RELEASE 5 MG TABLET PO PRN (17:45)
[2022-11-23] MEDS ORDERED: LACTULOSE SYRUP 10GM/15ML 30ML UDC PO PRN (17:45)
[2022-11-23] MEDS ORDERED: ALPRAZolam 1 MG TABLET PO PRN (17:45)
[2022-11-23 18:08] VITALS: BP 142/69
[2022-11-23] MEDS ORDERED: RT-Ipratropium/Albuterol NEB 3 ML VIAL INH PRN (18:30)
[2022-11-23] MEDS ORDERED: ALPRAZolam 0.5 MG TABLET PO PRN (18:30)
[2022-11-23] MEDS ORDERED: ENOXAPARIN 40 MG/0.4 ML SYRINGE SC SCH (18:30)
[2022-11-23 20:00] VITALS: BP 120/66
[2022-11-23] MEDS: DOCUSATE SODIUM 100 MG CAPSULE PO SCH (21:02)
[2022-11-23] MEDS: SENNOSIDES 8.6 MG TABLET PO SCH (21:02)
[2022-11-23] MEDS: carvediloL 6.25 MG TABLET PO SCH (21:02)
[2022-11-23] MEDS ORDERED: GABAPENTIN 600 MG TABLET PO ONE (21:45)
[2022-11-23] MEDS: RT-Ipratropium/Albuterol NEB 3 ML VIAL INH SCH (22:07)
[2022-11-24] VITALS: BP 102/61
[2022-11-24 03:40] VITALS: BP 99/58
[2022-11-24 05:27] LABS: HEMATOCRIT 42 % (35-52); HEMOGLOBIN 14.3 g/dL (11.5-16.0); MEAN CORPUSCULAR HEMOGLOBIN 30 pg (25-34); MEAN CORPUSCULAR HGB CONC 34 g/dL (32-36); MEAN CORPUSCULAR VOLUME 89 fL (80-99); MEAN PLATELET VOLUME 10.6 fL (9.0-12.2); PLATELET COUNT 243 10^3/uL (130-400); WHITE BLOOD COUNT 8.2 10^3/uL (4.3-11.0)
[2022-11-24 05:38] LABS: ALBUMIN 4.1 GM/DL (3.2-4.5)
[2022-11-24 05:39] LABS: CALCIUM 9.6 MG/DL (8.5-10.1)
[2022-11-24 05:40] LABS: TOTAL PROTEIN 7.4 GM/DL (6.4-8.2)
[2022-11-24 05:44] LABS: CREATININE SERUM 0.64 MG/DL (0.60-1.30)
[2022-11-24 06:00] LABS: BILIRUBIN,TOTAL 1.2 MG/DL (0.1-1.0)
[2022-11-24] MEDS: FUROSEMIDE INJECTION 40 MG/4 ML VIAL IV SCH ×2 (06:31→07:29)
[2022-11-24 07:48] VITALS: BP 118/66
[2022-11-24] MEDS: carvediloL 6.25 MG TABLET PO SCH (08:20)
[2022-11-24] MEDS: DOCUSATE SODIUM 100 MG CAPSULE PO SCH (08:20)
[2022-11-24] MEDS: ACETAMINOPHEN 325 MG TABLET PO PRN ×2 (08:20→14:04)
[2022-11-24] MEDS: SENNOSIDES 8.6 MG TABLET PO SCH (08:20)
[2022-11-24] MEDS ORDERED: GBPN600T PO (08:24)
[2022-11-24] MEDS: RT-Ipratropium/Albuterol NEB 3 ML VIAL INH SCH (08:32)
[2022-11-24] MEDS ORDERED: ASPIRIN 81 MG CHEWABLE TABLET PO SCH (09:00)
--- NOTE | 2022-11-24 10:10 | Progress Note ---
FELY WILCOX MD 11/24/22 1010: Subjective HPI/CC On Admission Date Seen by Provider: Nov 24, 2022 Time Seen by Provider: 10:10 Chief complaint: Shortness of breath from new congestive heart failure HPI: This is a 62-year-old female who has a past medical history of COPD and smoking who presented to the ER with shortness of breath found to have volume overload and pulmonary edema consistent with new onset congestive heart failure. Cardiology was consulted recommended echocardiogram and IV Lasix. Pt reports feeling much better today and would like to go home. She denies CP, SOB, N/V. Focused Exam Lactate Level 11/23/22 15:20: Lactic Acid Level 1.00 Objective Exam Vital Signs Vital Signs Date Time Temp Pulse Resp B/P (MAP) Pulse Ox O2 Delivery O2 Flow Rate FiO2 11/24/22 12:55 61 11/24/22 11:49 36.5 18 100/72 (81) 97 11/24/22 08:32 Nasal Cannula 2.00 11/23/22 18:08 28 Capillary Refill : General Appearance: No Apparent Distress HEENT: Pharynx Normal Neck: Full Range of Motion, Non Tender Respiratory: Chest Non Tender, Wheezing Cardiovascular: Regular Rate, Rhythm Gastrointestinal: Non Tender, Soft Extremity: No Pedal Edema Neurologic/Psychiatric: Alert, Oriented x3, Normal Mood/Affect Skin: Normal Color, Warm/Dry Results/Procedures Lab Laboratory Tests 11/23/22 15:20 11/24/22 05:18 Patient resulted labs reviewed. Imaging: Reviewed Imaging Report Assessment/Plan Assessment and Plan Assess & Plan/Chief Complaint Assessment: Acute congestive heart failure new onset Volume overload Smoker COPD Anasarca Plan: IV diuresis Cardiac stepdown Cardiology consult Echo report pending, likely DC today Home oxygen test d/t requiring 2L O2 NC Diagnosis/Problems Diagnosis/Problems (1) CHF (congestive heart failure) Status: Acute Qualifiers: (2) COPD with acute exacerbation EMELY CAMPBELL DO 11/24/22 1653: Subjective Subjective/Events-last exam ECHO 55% No need for O2 on eval Lasix ordered at DC Objective Exam General Appearance: No Apparent Distress, Chronically ill Assessment/Plan Assessment and Plan Assess & Plan/Chief Complaint DC home No O2 needed FELY WILCOX MD Nov 24, 2022 10:10 EMELY CAMPBELL DO Nov 24, 2022 16:53
[2022-11-24 11:49] VITALS: BP 100/72
[2022-11-24 16:00] VITALS: BP 108/69
[2022-11-24] MEDS ORDERED: FURO20TA4 PO (16:39)
--- NOTE | 2022-11-24 16:40 | Discharge Summary ---
FELY WILCOX MD 11/24/22 1640: Discharge Summary Hospital Course Hospital Course Date of Admission: Nov 23, 2022 at 17:15 Admission Diagnosis : Family Physician/Provider: Sreedhar Morin - [facility] Date of Discharge: 11/24/22 Discharge Diagnosis: Congestive heart failure; COPD excerbation Hospital Course: Pt admitted for acute on chronic hypoxic respiratory failure 2/2 to COPD exace rbation and new onset CHF Pt was diuresed with IV lasix CXR showed cardiomegaly Echo demonstrated mild acute on chronic diastolic heart failure. Normal LVEF,65-70%. No significant concentric LVH. Left atrial dilatation. Pt passed home oxygen test Pt was cleared for DC on 11/24 with close hospital f/u and on 20 mg PO lasix every other day for volume overload in setting of HF Labs and Pending Lab Test: Laboratory Tests 11/24/22 05:18: White Blood Count 8.2, Red Blood Count 4.75, Hemoglobin 14.3, Hematocrit 42, Mean Corpuscular Volume 89, Mean Corpuscular Hemoglobin 30, Mean Corpuscular Hemoglobin Concent 34, Red Cell Distribution Width 15.4H, Platelet Count 243, Mean Platelet Volume 10.6, Sodium Level 130L, Potassium Level 4.0, Chloride Level 92L, Carbon Dioxide Level 28, Anion Gap 10, Blood Urea Nitrogen 11, Creatinine 0.64, Estimat Glomerular Filtration Rate 100, BUN/Creatinine Ratio 17, Glucose Level 127H, Calcium Level 9.6, Corrected Calcium 9.5, Total Bilirubin 1.2H, Aspartate Amino Transf (AST/SGOT) 26, Alanine Aminotransferase (ALT/SGPT) 22, Alkaline Phosphatase 114, Total Protein 7.4, Albumin 4.1, Triglycerides Level 51, Cholesterol Level 129, LDL Cholesterol Direct 79, VLDL Cholesterol 10, HDL Cholesterol 44 Microbiology 11/23/22 Blood Culture - Preliminary, Resulted Home Meds Active Reported Gabapentin 600 Mg Tablet 600 Mg PO TID Trazodone HCl 50 Mg Tablet 75 Mg PO HS Celebrex (Celecoxib) 100 Mg Capsule 200 Mg PO DAILY Methocarbamol 500 Mg Tablet 500 Mg PO BID Gabapentin 600 Mg Tablet 600 Mg PO TID Citalopram HBr (Citalopram Hydrobromide) 20 Mg Tablet 20 Mg PO DAILY Ventolin Hfa (Albuterol Sulfate) 1 Puff Puff 2 Puff INH Q4H PRN Assessment/Pt DC Instructions CHF -Echo: Mild acute on chronic diastolic heart failure. Normal LVEF. No significant concentric LVH. Left atrial dilatation. Likely mild chronic diastolic heart failure. COPD exacerbation - Home oxygen test passed - Pt stable on RA D/C instructions: Pt to have close hospital f/u with PCP (within 7-14 days) Will continue Lasix 20 mg every other day for volume overload Consider cardiology follow-up outpatient Discharge Diet: No Restrictions Activity as Tolerated: Yes Consulations Consultations Cardiology Discharge Physical Examination Allergies: Coded Allergies: No Known Drug Allergies (Unverified , 09/13/21) General Appearance: No Apparent Distress HEENT: Pharynx Normal Respiratory: Chest Non Tender, No Accessory Muscle Use, No Respiratory Distress, Wheezing Cardiovascular: Regular Rate, Rhythm, No Edema, No Murmur Gastrointestinal: Non Tender, Soft Extremity: Non Tender, Pedal Edema (trace) Skin: Normal Color, Warm/Dry Neurologic/Psychiatric: Alert, Oriented x3, No Motor/Sensory Deficits, Normal Mood/Affect EMELY CAMPBELL DO 11/24/222116: Discharge Summary Hospital Course Problems Reviewed?: Yes Problems/Diagnosis: (1) CHF (congestive heart failure) Status: Acute Qualifiers: (2) COPD with acute exacerbation Hospital Course Uneventful course after she presented to the ER with findings suggesting new CHF and hypoxia. Cards consulted. ECHO normal. Smoking cessation counseled. Deemed stable for DC with close f/u. Assessment/Pt DC Instructions Diastolic CHF Discharge Diet: No Restrictions Discharge Physical Examination Allergies: Coded Allergies: No Known Drug Allergies (Unverified , 09/13/21) General Appearance: No Apparent Distress, Chronically ill FELY WILCOX MD Nov 24, 2022 16:40 EMELY CAMPBELL DO Nov 24, 2022 21:17
--- NOTE | 2022-11-24 17:05 | Consultation-Cardiology ---
HPI-Cardiology Cardiology Consultation: Date of Consultation 11/24/22 Date of Admission Attending Physician Sreedhar Morin - [facility] Admitting Physician Admitting Physician: Ashly Salmeron DO Attending Physician: Ashly Salmeron DO Consulting Physician Ann-Marie GOYAL MD HPI: Time Seen by a Provider: 14:00 Chief Complaint: Shortness of breath This is a 62-year-old lady. She has history of COPD and active smoking. She presents with shortness of breath. However she tells me that she had a CT scan done on Saturday and based on the results she was told to get admitted. I have reviewed the CT chest results and it shows some pulmonary nodules, right-sided pleural effusion and ascites. She is not very short of breath during my history. She does not have any significant history of cardiac problems. She was 88% on room air when she came to the ER. Review of Systems-Cardiology Review of Systems Constitutional: no symptoms reported Eyes: no symptoms reported Ears/Nose/Throat: no symptoms reported Respiratory: shortness of breath Cardiovascular: no symptoms reported Gastrointestinal: no symptoms reported All Other Systems Reviewed Negative Unless Noted: Yes GBM-Aizwbf-Osrgey Hx Patient Social History Marrital Status: single Employed/Student: unemployed Smoking Status: Current Everyday Smoker 2nd Hand Smoke Exposure: Yes Alcohol Use?: No Substance type: Marijuana Pt feels they are or have been: No Tobacco type used: Cigarettes Immunizations Up To Date Date of Influenza Vaccine: Apr 18, 2020 Past Medical History PMH As described under Assessment. Family Medical History Family History: Alzheimer's disease Arthritis Asthma Cardiovascular disease Completed stroke Dementia Diabetes mellitus Hypertension Myocardial infarction Osteoporosis Psychosocial problem Respiratory disorder Thyroid disease Visual disorder Allergies and Home Medications Allergies Coded Allergies: No Known Drug Allergies (Unverified , 09/13/21) Patient Home Medication List Home Medication List Reviewed: Yes Albuterol Sulfate (Ventolin Hfa) 1 Puff Puff, 2 PUFF INH Q4H PRN for SHORTNESS OF BREATH, (Reported) Entered as Reported by: STACIA WYATT on 12/18/18 0905 Last Action: Reviewed Celecoxib (Celebrex) 100 Mg Capsule, 200 MG PO DAILY, (Reported) Entered as Reported by: ELIZABETH BAH on 07/25/20 1126 Last Action: Reviewed Citalopram Hydrobromide (Citalopram HBr) 20 Mg Tablet, 20 MG PO DAILY, (Reported) Entered as Reported by: STACIA WYATT on 12/18/18943 Last Action: Reviewed Furosemide (Furosemide) 20 Mg Tablet, 20 MG PO Q48H PRN for BLOOD PRESSURE Prescribed by: FELY WILCOX on 11/24/22 1639 Gabapentin (Gabapentin) 600 Mg Tablet, 600 MG PO TID, (Reported) Entered as Reported by: YUNIOR GRIGSBY on 11/24/22 0824 Last Action: New Order Methocarbamol (Methocarbamol) 500 Mg Tablet, 500 MG PO BID, (Reported) Entered as Reported by: STACIA WYATT on 12/18/18943 Last Action: Reviewed Trazodone HCl (Trazodone HCl) 50 Mg Tablet, 75 MG PO HS, (Reported) Entered as Reported by: ELIZABETH BAH on 07/25/20 1126 Last Action: Reviewed Discontinued Medications Gabapentin (Gabapentin) 600 Mg Tablet, 600 MG PO TID, (Reported) Entered as Reported by: STACIA WYATT on 12/18/18943 Hydrocodone Bit/Acetaminophen (HYDROcodone/APAP 5 MG/325 MG TAB) 1 Tab Tab, 1 TAB PO Q8H PRN for PAIN-MODERATE (5-7) Discontinued Reason: No Longer Taking Prescribed by: FREYA DIAS on 09/20/21 1538 Last Action: Discontinued Exam Vital Signs Vital Signs Date Time Temp Pulse Resp B/P (MAP) Pulse Ox O2 Delivery O2 Flow Rate FiO2 11/24/22 16:00 36.1 59 20 108/69 (82) 93 Room Air 11/24/22 08:32 2.00 11/23/22 18:08 28 Physical Exam Constitutional: No respiratory distress. Chest: Clear to auscultation bilaterally. CVS: Regular rate and rhythm. No murmur. Neuro: Nonfocal. No significant pedal edema Labs Laboratory Tests Test 11/24/22 05:18 Range/Units White Blood Count 8.2 4.3-11.0 10^3/uL Red Blood Count 4.75 3.80-5.11 10^6/uL Hemoglobin 14.3 11.5-16.0 g/dL Hematocrit 42 35-52 % Mean Corpuscular Volume 89 80-99 fL Mean Corpuscular Hemoglobin 30 25-34 pg Mean Corpuscular Hemoglobin Concent 34 32-36 g/dL Red Cell Distribution Width 15.4 H 10.0-14.5 % Platelet Count 243 130-400 10^3/uL Mean Platelet Volume 10.6 9.0-12.2 fL Sodium Level 130 L 135-145 MMOL/L Potassium Level 4.0 3.6-5.0 MMOL/L Chloride Level 92 L 98-107 MMOL/L Carbon Dioxide Level 28 21-32 MMOL/L Anion Gap 10 5-14 MMOL/L Blood Urea Nitrogen 11 7-18 MG/DL Creatinine 0.64 0.60-1.30 MG/DL Estimat Glomerular Filtration Rate 100 BUN/Creatinine Ratio 17 Glucose Level 127 H 70-105 MG/DL Calcium Level 9.6 8.5-10.1 MG/DL Corrected Calcium 9.5 8.5-10.1 MG/DL Total Bilirubin 1.2 H 0.1-1.0 MG/DL Aspartate Amino Transf (AST/SGOT) 26 5-34 U/L Alanine Aminotransferase (ALT/SGPT) 22 0-55 U/L Alkaline Phosphatase 114 40-136 U/L Total Protein 7.4 6.4-8.2 GM/DL Albumin 4.1 3.2-4.5 GM/DL Triglycerides Level 51 <150 MG/DL Cholesterol Level 129 < 200 MG/DL LDL Cholesterol Direct 79 1-129 MG/DL VLDL Cholesterol 10 5-40 MG/DL HDL Cholesterol 44 40-60 MG/DL ECG Impression ECG Initial ECG Rhythm: Normal Sinus Initial ECG Impression: Normal A/P-Cardiology Assessment/Admission Diagnosis Shortness of breath, Pulmonary nodules, Right pleural effusion, Ascites, Mild acute on chronic diastolic heart failure Plan Mild acute on chronic diastolic heart failure. Normal LVEF. No significant concentric LVH. Left atrial dilatation. Likely mild chronic diastolic heart failure. Troponin negative. BNP is mildly elevated. Low-dose as needed diuretics is acceptable. Can follow-up with cardiology if required. Ann-Marie GOYAL MD Nov 24, 2022 17:04
[2022-11-24 17:07] VITALS: BP 108/69
== END 2022-11-24 16:31 | disposition home or self-care (01) ==
LOC: EDUNIT# 15:05 → ER 15:06 → CSD 17:15 → UNDOADMOB 17:15 → CSD 17:30 → UNDODISOB 11-24 16:31
PROVIDERS: ADMIT Internal Medicine; ATTEND Internal Medicine
DX: I50.33 Acute on chronic diastolic (congestive) heart failure (principal); J44.1 Chronic obstructive pulmonary disease with (acute) exacerbation; J96.21 Acute and chronic respiratory failure with hypoxia; R91.1 Solitary pulmonary nodule; R18.8 Other ascites; J90 Pleural effusion, not elsewhere classified; E87.70 Fluid overload, unspecified; F17.210 Nicotine dependence, cigarettes, uncomplicated
CPT/HCPCS: 51702; 71045; 80053 ×2; 80061; 81000; 83605; 83880; 84484; 85025; 85027; 85610; 85730; 86141; 87040; 87636; 93005; 94640 ×2; 94760; 94761; 96376; 99284; C8929; G0378; 36415; 93306